=== PATIENT | male | born 1940 | race Caucasian/White ===

== ENCOUNTER 2024-09-09 11:22 | Inpatient (IN) | payer MEDICARE, SELFPAY ==
[2024-09-09] VITALS (13 sets, daily range): BP systolic 117–157; BP diastolic 57–85; PULSE 54–73; RESP 14–21; TEMP 36.4–37; O2SAT 96–99; BMI 33.4
--- NOTE | ~2024-09-09 | CT_ITS ---
EXAMINATION: CTA chest PE protocol DATE: 09/09/2024 12:33 INDICATION: Chest pain. Elevated troponins. Right bundle branch block. TECHNIQUE: Computed tomography (CT) pulmonary angiogram of the chest was performed with 100 mL Omnipa que-350 intravenous contrast. Additional 3D reconstructions utilizing coronal maximum intensity proje ction (MIP) were performed. Automated exposure control and iterative reconstruction technique were em ployed. The dose-length product was 693.64 mGy-cm. COMPARISON: None FINDINGS: No pulmonary embolism. Mild discoid atelectasis at the basilar aspect the lingula and left lower lobe . Additional dependent predominant atelectasis with groundglass opacities in the bilateral lower lobe s. No pneumonia, pulmonary edema, pleural effusion or pneumothorax. Heart size is normal. Atheroscler otic coronary artery calcifications. No pericardial effusion. Normal caliber thoracic aorta with no d issection. No pathologically enlarged thoracic lymphadenopathy. There are are a few small hepatic cys ts the largest in the right hepatic lobe measuring up to 2.5 cm. Visualized upper abdomen is otherwis e unremarkable. Mild upper thoracic levocurvature with mild spondylosis and bridging osteophytes at m ultiple levels consistent with diffuse idiopathic skeletal hyperostosis (DISH). IMPRESSION: 1. Mild atelectasis at the lingula and the dependent lower lobes. No pulmonary embolism or other acut e cardiopulmonary disease. Reviewed, dictated and finalized at location A. IMPRESSION: 1. Mild atelectasis at the lingula and the dependent lower lobes. No pulmonary embolism or other acute cardiopulmonary disease.
--- NOTE | ~2024-09-09 | XR_ITS ---
EXAMINATION: XR chest 2V DATE: 09/09/2024 12:19 INDICATION: Chest pain TECHNIQUE: PA and lateral views of the chest were obtained. COMPARISON: Chest CT dated 09/09/2024 FINDINGS: Mild linear discoid atelectasis/scarring at the left lung base. Calcified left upper lobe nodule jarad g with calcified left hilar lymph nodes consistent with old granulomatous disease. No pulmonary edema , pleural effusion or pneumothorax. The cardiomediastinal silhouette is normal. Mild thoracic spondyl osis. IMPRESSION: 1. Mild left basilar atelectasis/scarring. Reviewed, dictated and finalized at location A.
--- NOTE | 2024-09-09 11:25 | ECG_ITS ---
Test Date: 2024-09-09 11:32:01 Measurements Intervals [place] Rate: 72 P: 51 NH: 154 QRS: -31 QRSD: 141 T: -13 QT: 394 QTc: 432 Interpretive Statements SINUS RHYTHM LEFT AXIS DEVIATION RIGHT BUNDLE BRANCH BLOCK VOLTAGE CRITERIA FOR LVH MINIMAL Q WAVES- HIGH LATERAL LEADS ABNORMAL ECG No previous ECG available for comparison Electronically Signed On 09-09-2024 12:49:12 CDT by Jd Lerner D.O.
[2024-09-09 11:52] LABS: Basophils Absolute Auto 0.1 K/mm3 (0.0-0.1); Basophils Percent Auto 0.9 % (0.2-1.2); Eosinophils Absolute Auto 0.1 K/mm3 (0-0.3); Eosinophils Percent Auto 1.1 % (0-4.4); Hematocrit 49.3 % (42.0-52.0); Hemoglobin 16.1 g/dL (14.0-18.0); Immature Granulocyte Absolute 0.01 K/mm3 (0.00-0.031); Immature Granulocyte Percent A 0.2 % (0-0.5); Lymphocytes Percent Auto 28.3 % (18.3-44.2); Mean Corpuscular HGB Conc 32.7 g/dl (32-36); Mean Corpuscular Hemoglobin 30.9 pg (26-34); Mean Corpuscular Volume 94.6 fl (80-100); Mean Platelet Volume 8.6 fl (7.4-10.4); Monocytes Absolute Auto 0.3 K/mm3 (0.1-0.6); Monocytes Percent Auto 5.5 % (2.6-8.5); Neutrophils Absolute Auto 3.6 K/mm3 (1.3-6.7); Platelet Count Result 220 k/mm3 (150-375); Red Blood Count 5.21 M/mm3 (4.6-6.20); Red Cell Distribution Width 13.2 % (11.5-14.5); White Blood Count 5.7 K/mm3 (4.5-10.0)
[2024-09-09] MEDS: ASPIRIN 81 MG CHEWABLE TABLET 324 MG PO (11:59)
[2024-09-09 12:03] LABS: Alanine Aminotransferase 30 U/L (6-50); Albumin Level 4.1 g/dL (3.5-5.1); Alkaline Phosphatase 64 U/L (38-126); Anion Gap 7 mmol/L (4-12); Aspartate Amino Transferase 29 U/L (17-59); Bilirubin,Total 0.8 mg/dL (0.2-1.3); Blood Urea Nitrogen 18 mg/dL (9-20); Calcium 8.8 mg/dL (8.4-10.2); Carbon Dioxide 27 mmol/L (22-30); Chloride 105 mmol/L (98-107); Estimated CRCL calculation 70 ml/min; Estimated Glomerular Filt Rate > 60; Glucose 183 mg/dL (65-110); Lipase 34 U/L (23-300); Potassium 3.9 mmol/L (3.4-5.0); Sodium 139 mmol/L (137-145)
[2024-09-09 12:04] LABS: Partial Thromboplastin Time 36.6 Seconds (22.3-36.8)
[2024-09-09 12:16] LABS: Troponin I 0.123 ng/mL (0.000-0.034)
--- NOTE | 2024-09-09 12:17 | ED.CHESTPAIN ---
HPI - Chest Pain General Chief Complaint: Chest Pain Stated Complaint: CP Time Seen by Provider: 09/09/24 11:26 History of Present Illness HPI narrative: 84-year-old male with no known comorbidities as he does not see a regular doctor and does not take any prescription medications. Patient presents to the emergency room with 2 days of ongoing midsternal chest pain. Started at rest and occasionally feels like there is tightness in his chest. States that it comes and goes and states that this feeling could potentially be gas in his upper chest. He denies any trauma or injury. He is very obese and has hypertension on triage vitals. Patient denies any symptoms of shortness of breath, diaphoresis, nausea, vomiting, leg swelling or back pain. Was otherwise in his normal state of health. States that the pain went away on the car ride over the hospital and presently asymptomatic. Related Data Allergies Allergy/AdvReac Type Severity Reaction Status Date / Time No Known Allergies Allergy Verified 09/09/24 11:58 Review of Systems Review of Systems: As reviewed above in HPI Exam Narrative: GENERAL: Morbidly obese, not any physical distress, awake and answers questions HEAD: [Normocephalic, atraumatic.] EYES: [PERRLA and EOMI.] ENT: Nares clear, no rhinorrhea or epistaxis. Mucous membranes moist. NECK: Supple. CHEST: [Clear to auscultation. No respiratory distress.] HEART: [Regular rate and rhythm]. No murmur heard. [Normal peripheral pulses.] ABDOMEN: [Soft, nondistended], protuberant abdomen but not tender to palpation, [No rigidity or guarding] EXTREMITIES: Normal range of motion. [No edema.] SKIN: Warm, dry, no rash. NEURO: [No focal deficits]. Alert and oriented [x3.] PSYCH: [Normal mood and affect.] Course Vital Signs Vital signs: Vital Signs Temperature 36.6 C 09/09/24 11:28 Pulse Rate 73 09/09/24 11:28 Respiratory Rate 17 09/09/24 11:28 Blood Pressure 155/83 H 09/09/24 11:28 Pulse Oximetry 96 09/09/24 11:28 Oxygen Delivery Room Air 09/09/24 11:28 Temperature 36.6 C 09/09/24 11:28 Pulse Rate 62 09/09/24 14:27 Respiratory Rate 14 09/09/24 14:27 Blood Pressure 128/83 09/09/24 14:27 Pulse Oximetry 98 09/09/24 14:27 Oxygen Delivery Room Air 09/09/24 11:34 MDM - Chest Pain MDM Narrative Medical decision making narrative: 84-year-old male with no known comorbidities presenting to the emergency room with chief complaint of midsternal chest pain the feels like a tightness intermittent in nature and ongoing for 2 days. Does not seek medical attention and does not see doctors. He had an episode like this 5 years ago that he brushed off. He is morbidly obese and generally unhealthy appearing and has hypertension with a blood pressure 155/83. No tachycardia, fever, hypoxia. He has strong symmetric pulses, clear breath sounds on auscultation and no signs of a DVT on examination at bedside. Suspicion presently given his comorbidities including obesity and hypertension is that he has angina and potential ACS versus musculoskeletal chest pain versus potential pulmonary embolism. Blood work obtained including a CBC, CMP, lipase, troponin serial levels, EKG and chest x-ray. He was given aspirin. EKG obtained shows a right bundle branch block with no previous baseline for comparison. Does not appear to have any marked ST segment elevations or depressions. Patient's laboratory studies came back with an elevated troponin at 0.123, no baseline and given his historical features including chest discomfort we will initiate heparin for NSTEMI. Given the right bundle branch block that could be new in addition to his elevated troponin a CT angiography of his chest was obtained for further delineation of any potential source such as aortic or pulmonary pathology although most likely cardiac in nature. Patient will be admitted to the hospital and placed on IMU telemetry bed after workup. Patient's workup shows no leukocytosis or anemia. Normal platelet count. Normal coag studies. Normal electrolytes, normal renal function, slightly elevated glucose 183. Normal LFTs. Troponin elevated 0.123. EKG shows right bundle branch block. CT angiography shows no cardiopulmonary process or pulmonary embolism. Patient was already initiated on heparin after initial troponin. Bolus dose provided. Consult Cardiology placed, discussed with the patient and family bedside elevated cardiac enzymes and suspect for NSTEMI given his EKG findings. Discussed the case with the hospitalist team currently being covered by the midlevel provider Stephanie who accepted the patient to an IMU bed at this time. Patient remains asymptomatic at this time with no chest pain shortness a breath and normal vital signs. Repeat EKG at 3:00 p.m. shows persistent right bundle branch block, lateral T-wave inversions, no ST segment elevations. Medical Records Data Attestation: I reviewed the patient's medical records. Lab Data Attestation: I reviewed the patient's lab results. 09/09/24 11:47 09/09/24 11:47 Labs: Lab Results 09/09/24 09/09/24 Range/Units 11:47 14:26 WBC 5.7 (4.5-10.0) K/mm3 RBC 5.21 (4.6-6.20) M/mm3 Hgb 16.1 (14.0-18.0) g/dL Hct 49.3 (42.0-52.0) % MCV 94.6 (80-100) fl MCH 30.9 (26-34) pg MCHC 32.7 (32-36) g/dl RDW 13.2 (11.5-14.5) % Plt Count 220 (150-375) k/mm3 MPV 8.6 (7.4-10.4) fl Immature Gran % (Auto) 0.2 (0-0.5) % Neut % (Auto) 64.0 (45.5-73.1) % Lymph % (Auto) 28.3 (18.3-44.2) % [place] % (Auto) 5.5 (2.6-8.5) % Eos % (Auto) 1.1 (0-4.4) % Baso % (Auto) 0.9 (0.2-1.2) % Lymph # (Auto) 1.60 (0.9-3.2) K/mm3 [place] # (Auto) 0.3 (0.1-0.6) K/mm3 Eos # (Auto) 0.1 (0-0.3) K/mm3 Baso # (Auto) 0.1 (0.0-0.1) K/mm3 Abs Immat Gran (auto) 0.01 (0.00-0.031) K/mm3 Absolute Neuts (auto) 3.6 (1.3-6.7) K/mm3 Absolute Nucleated RBC 0.000 (0.0-0.012) K/mm3 Nucleated RBC % 0.0 (0.0-0.2) % PT 14.0 (11.1-14.7) Seconds INR 1.0 APTT 36.6 (22.3-36.8) Seconds D-Dimer Cancelled Sodium 139 (137-145) mmol/L Potassium 3.9 (3.4-5.0) mmol/L Chloride 105 (98-107) mmol/L Carbon Dioxide 27 (22-30) mmol/L Anion Gap 7 (4-12) mmol/L BUN 18 (9-20) mg/dL Creatinine 0.82 (0.7-1.3) mg/dL Estim Creat Clear Calc 70 ml/min Estimated GFR > 60 (59 - ) Glucose 183 H (65-110) mg/dL Calcium 8.8 (8.4-10.2) mg/dL Total Bilirubin 0.8 (0.2-1.3) mg/dL AST 29 (17-59) U/L ALT 30 (6-50) U/L Alkaline Phosphatase 64 (38-126) U/L Troponin I 0.123 H* Pending (0.000-0.034) ng/mL Total Protein 7.0 (6.3-8.2) g/dL Albumin 4.1 (3.5-5.1) g/dL Lipase 34 (23-300) U/L Imaging Data Attestation: I personally reviewed and interpreted this imaging study as follows: My impression: Impressions Chest X-Ray 09/09/24 12:35 IMPRESSION: 1. Mild left basilar atelectasis/scarring. Chest CTA 09/09/24 12:38 IMPRESSION: 1. Mild atelectasis at the lingula and the dependent lower lobes. No pulmonary embolism or other acute cardiopulmonary disease. ECG Data EKG #1: Attestation: I personally reviewed and interpreted this ECG as follows: ECG completion date: 09/09/24 ECG completion time: 11:32 Prior ECG tracings: available for review Interpretation: Sinus rhythm, QTC 432, QRS 141, rate of 72 beats per minute. UT interval 154. Right bundle branch block, no ST segment elevations, depressions. No previous EKG for comparison. Overall sinus rhythm with right bundle branch block. Critical Care Time Critical Care Time Critical Care Time: Yes Total Critical Care Time: 36 Discharge Plan Discharge Clinical Impression: Chest pain, Non-STEMI (non-ST elevated myocardial infarction) Patient Disposition: Still a Patient Condition: Stable Patient Language: Palestinian Prescriptions: No Action Paxlovid 300 mg (150 mg x 2)-100 mg tablet See Rx Instructions PO .COMPLEX Qty: 30 0RF Rx Instructions: take TWO 150 mg tablets of nirmatrelvir with ONE 100 mg tablet of ritonavir twice daily for 5 days PO Follow-up/Referrals: PHYSICIAN,CROP SPECIALIST [Primary Care Provider] - Time of Disposition: 14:56
[2024-09-09] MEDS: HEPARIN SODIUM 5,000 UNITS/ML VIAL 4000 UNITS IV PUSH (12:44)
[2024-09-09] MEDS: HEPARIN SOD/D5W 100 UNITS/ML 25,000 UNITS/250 ML BAG 10 UNITS IV CONT (12:45)
[2024-09-09] MEDS: PHARMACIST COMMUNICATION ORDER 1 EACH XX (12:49)
--- NOTE | 2024-09-09 14:15 | ECG_ITS ---
Test Date: 2024-09-09 14:34:19 Measurements Intervals [place] Rate: 51 P: 52 FL: 150 QRS: -26 QRSD: 136 T: -24 QT: 403 QTc: 374 Interpretive Statements SINUS BRADYCARDIA RIGHT BUNDLE BRANCH BLOCK VOLTAGE CRITERIA FOR LVH T WAVE ABNORMALITY IN ANT/INF LEADS- CONSIDER ISCHEMIA ABNORMAL ECG Compared to ECG 09/09/2024 11:32:01 HEART RATE HAS DECREASED T-wave abnormality now present Possible ischemia now present Electronically Signed On 09-09-2024 18:38:59 CDT by Jd Lerner D.O.
--- NOTE | 2024-09-09 15:00 | P.HP_ITS ---
H&P: HPI History of Present Illness Date/Time: 09/09/24 15:00 Chief Complaint: Chest Pain Narrative: 84 y/o M with no known past medical history presents here with chest pain. The patient presents here from home on 09/09 for further evaluation of midsternal chest pain. He reports onset of chest pain early this morning around 4 a.m. He reports he was up early and showered. Went back to sleep post-shower and pain was still present when he woke up at 7:30 a.m. Pain resolved without medications or interventions. Patient then developed a second episode of prolonged chest pain, reports it was less severe than the first and occurred shortly after he used the restroom and at rest. He describes it as a tightness, sharp, nonradiating, constant, first episode lasted for a few hours and the second episode 1-2 hours, no aggravated or alleviating factors. It was accompanied by indigestion, felt damp and hot but not necessarily diaphoretic. He denies shortness of breath, nausea, vomiting, palpitations, dizziness, lightheadedness or syncope. He denies any significant cardiac history and does not take any daily medications. Family history of heart disease - mother. Initial VS at presentation: 97.8? F, HR 73, R 17, 155/83, and 96% on RA. ED workup showed: Unremarkable CBC, no significant electrolyte derangements, glucose 183, initial troponin 0.415. CXR showed mild left basilar atelectasis/s carring. Chest CTA showed mild atelectasis at the lingula and the dependent lower lobes, no PE, no other acute cardiopulmonary disease. Initial EKG showed sinus rhythm, left axis deviation, RBBB, voltage criteria for LVH, minimal Q- waves high lateral leads. Review of Systems Review of Systems: All systems reviewed & are unremarkable except as noted in HPI and below [facility] Social History Social History Smoking status: Never smoker Alcohol intake: never Do You Feel Safe in your Home?: Yes Lack of Transportation: No Lack of Food: Never True Current Housing: I Have Housing Concerned About Future Housing: No Difficulty Paying Gas/Electric Bills: No Difficulty Paying for Meds: No Currently Unemployed: No Education: Master's Degree or Higher Difficulty w/ Childcare or Family Care: No Spiritual care concerns: No Meds Home Medications and Allergies Home Medications ?Medication ?Instructions ?Recorded ?Confirmed ?Type No Home Medications 09/09/24 09/09/24 History Allergies Allergy/AdvReac Type Severity Reaction Status Date / Time No Known Allergies Allergy Verified 09/09/24 11:58 Vital Signs Vital Signs - 24 hr 09/09/24 11:28 09/09/24 11:33 09/09/24 11:34 Temperature 97.8 F Pulse Rate 73 72 Respiratory Rate 17 Blood Pressure 155/83 H Pulse Oximetry 96 97 Oxygen Delivery Room Air Room Air 09/09/24 12:49 09/09/24 13:54 09/09/24 14:27 Temperature Pulse Rate 64 54 L 62 Respiratory Rate 21 H 19 14 Blood Pressure 142/79 H 128/83 128/83 Pulse Oximetry 97 96 98 Oxygen Delivery 09/09/24 14:55 Temperature Pulse Rate 61 Respiratory Rate 15 Blood Pressure Pulse Oximetry 99 Oxygen Delivery Exam Const: General: comfortable and no acute distress Other: , male, elderly, nontoxic appearance HENMT: Face/Nose/Sinus: Normal nares present Mouth: Yes moist mucous membranes Eyes: General: appearance normal, both eyes and all related structures Sclera: sclerae normal Pupils: Equal, round and reactive pupils present EOM: EOMs intact bilaterally Resp: Effort & Inspection: normal respiratory effort Auscultation: clear to auscultation bilaterally Cardio: Rate: regular rate Rhythm: regular rhythm Other: S1-S2 present without murmur, rub, ectopy GI: Other: Abdomen rounded, soft, nondistended. Normoactive bowel sounds in all quadrants. Skin: General skin exam: normal color and no rashes or lesions noted Wounds: no wounds Neuro: Speech: normal speech Motor exam (neuro): 5/5 motor strength present throughout Sensory Exam: normal sensation Other: A&O x4 Extrem: Other: Trace edema to bilateral lower extremities, primarily at the ankles, and symmetric. Psych: Mental Status: mental status grossly normal Affect: normal affect Other: Very good insight and judgment, very pleasant. H&P: Results Labs Labs: Short CBC 09/09/24 Range/Units 11:47 WBC 5.7 (4.5-10.0) K/mm3 Hgb 16.1 (14.0-18.0) g/dL Hct 49.3 (42.0-52.0) % Plt Count 220 (150-375) k/mm3 BMP 09/09/24 11:47 Sodium 139 Potassium 3.9 Chloride 105 Carbon Dioxide 27 BUN 18 Creatinine 0.82 Glucose 183 H Calcium 8.8 Cardiac Enzymes 09/09/24 Range/Units 11:47 Troponin I 0.123 H* (0.000-0.034) ng/mL Liver Function 09/09/24 Range/Units 11:47 Total Bilirubin 0.8 (0.2-1.3) mg/dL AST 29 (17-59) U/L ALT 30 (6-50) U/L Alkaline Phosphatase 64 (38-126) U/L Albumin 4.1 (3.5-5.1) g/dL Assessment and Plan Assessment and plan (1) Non-STEMI (non-ST elevated myocardial infarction): Code(s): I21.4 - Non-ST elevation (NSTEMI) myocardial infarction Status: Acute Assessment and Plan: - EKG, initial: sinus rhythm, left axis deviation, RBBB, voltage criteria for LVH, minimal Q-waves high lateral leads. - EKG, repeat (1): When compared to previous, new T-wave abnormality present, new lateral inversions, possible ischemia now present, sinus rhythm no longer present (Sinus bradycardia) - CXR:Mild left basilar atelectasis/scarring. - Chest CTA: Mild atelectasis at the lingula and the dependent lower lobes. No pulmonary embolism or other acute cardiopulmonary disease. - Troponin: 0.123 -> 0.415, 6 hr pending - ASA 324 given - SL nitro PRN - cardiology consulted, awaiting recs ED provider spoke with on-call wide area network engineer, Rachel BRYANT, and updated the provider in regards to the up trending troponin and new lateral inversions on his EKG. Plan for cardiac catheterization in the a.m. and NPO at midnight. - started on heparin gtt - check lipid panel, A1C, and ApneaLink - NPO at midnight for cardiac catheterization on 09/10 -> patient aware of plan, questions answered - telemetry monitoring (2) Elevated glucose: Code(s): R73.09 - Other abnormal glucose Status: Acute Assessment and Plan: Initial glucose 183, no previous history of diabetes. Check A1c. Plan Diet: Heart healthy, NPO at midnight GI Prophylaxis: Not currently indicated DVT Prophylaxis: Heparin gtt IV fluids: None Lines/Tubes: Peripheral IV Code Status: Full code Quality VTE Prophylaxis VTE prophylaxis: pharmacologic ordered Hospitalist MIPS Advance Care Plan I have confirmed that the patient's Advanced Care Plan is present, code status is documented, or surrogate decision maker is listed in patient medical record.: Yes Medication Reconciliation I have utilized all available resources to obtain, update and review the patients current medications (includes all prescriptions, OTC, herbals, cannabis, and nutritional supplements).: Yes
[2024-09-09 15:01] LABS: Troponin I 0.415 ng/mL (0.000-0.034)
--- NOTE | 2024-09-09 15:03 | ADMGEN ---
This patient, Oscar Michele, was admitted to IMU Room 207-01. Patient/family oriented to hospital policies and general routines including ID bracelet, bed and alarms, visiting hours, pain management, procedures, bathroom and other care routines, personal items, smoking policy, room service/diet, and visiting hours. Information on how to activate the Rapid Response Team has been discussed. Patient/Family are encouraged to report perceived risks to care and to ask questions if they do not understand what they are told or what they should do.
[2024-09-09 18:21] LABS: Troponin I 0.905 ng/mL (0.000-0.034)
[2024-09-09 19:21] LABS: Partial Thromboplastin Time 83.9 Seconds (22.3-36.8)
--- NOTE | 2024-09-09 20:33 | ECG_ITS ---
Test Date: 2024-09-09 18:02:37 Measurements Intervals [place] Rate: 67 P: 54 SD: 153 QRS: -28 QRSD: 141 T: -11 QT: 379 QTc: 402 Interpretive Statements SINUS RHYTHM RIGHT BUNDLE BRANCH BLOCK VOLTAGE CRITERIA FOR LVH MINIMAL Q WAVES- HIGH LATERAL LEADS T WAVE ABNORMALITY IN ANT/INF LEADS- CONSIDER ISCHEMIA BASELINE ARTIFACT- II, III, AVF ABNORMAL ECG Compared to ECG 09/09/2024 14:34:19 HEART RATE HAS INCREASED Electronically Signed On 09-10-2024 07:54:46 CDT by Jd Lerner D.O.
[2024-09-10] VITALS (15 sets, daily range): BP systolic 117–139; BP diastolic 64–73; PULSE 58–73; RESP 16–18; TEMP 36.6–36.9; O2SAT 91–98; BMI 33.6
--- NOTE | 2024-09-10 | PCRTNOTE ---
2230: Patient seen for placement on Apnea Link, not ready, stating he won't be asleep until at least 0000; plan with RN/Tech/RT for placement at 0000 [id number]: Placed on Apnea Link, room air; 0130 blood draw required
[2024-09-10 02:24] LABS: Basophils Absolute Auto 0.1 K/mm3 (0.0-0.1); Basophils Percent Auto 0.6 % (0.2-1.2); Eosinophils Absolute Auto 0.2 K/mm3 (0-0.3); Eosinophils Percent Auto 2.2 % (0-4.4); Hematocrit 46.2 % (42.0-52.0); Hemoglobin 15.2 g/dL (14.0-18.0); Immature Granulocyte Absolute 0.02 K/mm3 (0.00-0.031); Immature Granulocyte Percent A 0.3 % (0-0.5); Lymphocytes Absolute Auto 2.64 K/mm3 (0.9-3.2); Lymphocytes Percent Auto 33.6 % (18.3-44.2); Mean Corpuscular HGB Conc 32.9 g/dl (32-36); Mean Corpuscular Volume 94.3 fl (80-100); Mean Platelet Volume 8.6 fl (7.4-10.4); Monocytes Absolute Auto 0.8 K/mm3 (0.1-0.6); Monocytes Percent Auto 9.9 % (2.6-8.5); Neutrophils Absolute Auto 4.2 K/mm3 (1.3-6.7); Neutrophils Percent Auto 53.4 % (45.5-73.1); Platelet Count Result 211 k/mm3 (150-375); Red Cell Distribution Width 13.2 % (11.5-14.5); White Blood Count 7.9 K/mm3 (4.5-10.0)
[2024-09-10 02:35] LABS: Alanine Aminotransferase 25 U/L (6-50); Albumin Level 3.4 g/dL (3.5-5.1); Alkaline Phosphatase 59 U/L (38-126); Anion Gap 5 mmol/L (4-12); Aspartate Amino Transferase 30 U/L (17-59); Bilirubin,Total 0.8 mg/dL (0.2-1.3); Blood Urea Nitrogen 17 mg/dL (9-20); Calcium 8.8 mg/dL (8.4-10.2); Carbon Dioxide 28 mmol/L (22-30); Chloride 104 mmol/L (98-107); Cholesterol 205 mg/dL (0-200); Estimated CRCL calculation 76 ml/min; Estimated Glomerular Filt Rate > 60; Glucose 131 mg/dL (65-110); HDL Direct 43 mg/dL; Potassium 3.8 mmol/L (3.4-5.0); Sodium 137 mmol/L (137-145); Triglycerides 97 mg/dL (<150)
[2024-09-10 02:37] LABS: Partial Thromboplastin Time 82.6 Seconds (22.3-36.8)
[2024-09-10 02:46] LABS: LDL Cholesterol Direct 117 mg/dL
[2024-09-10 03:44] LABS: Hemoglobin A1C 6.8 % (<5.7)
--- NOTE | 2024-09-10 09:01 | PM.IMPN ---
Progress Note: A&P Assessment and Plan (1) Chest pain: Code(s): R07.9 - Chest pain, unspecified Status: Acute (2) Non-STEMI (non-ST elevated myocardial infarction): Code(s): I21.4 - Non-ST elevation (NSTEMI) myocardial infarction Status: Acute (3) Elevated glucose: Code(s): R73.09 - Other abnormal glucose Status: Acute Plan 84 y/o M with no known past medical history presents here with intermittent chest pain. Non-STEMI (non-ST elevated myocardial infarction): Code(s): I21.4 - Non-ST elevation (NSTEMI) myocardial infarction Status: Acute Assessment and Plan: EKG, initial: sinus rhythm, left axis deviation, RBBB, voltage criteria for LVH, minimal Q-waves high lateral leads. Repeat EKG showed new T-wave abnormality present, new lateral inversions, possible ischemia now present - CXR:Mild left basilar atelectasis/scarring. - Chest CTA: Mild atelectasis at the lingula and the dependent lower lobes. No pulmonary embolism or other acute cardiopulmonary disease. - Troponin: 0.123 -> 0.415, 6 hr pending - ASA 324 given - SL nitro PRN Continue heparin gtt Continue telemetry monitoring Appreciate cardiology consultation, please cardiac catheterization today The new diagnosed diabetes Code(s): R73.09 - Other abnormal glucose Status: Acute Assessment and Plan: Initial glucose 183, no previous history of diabetes. Check A1c 6.8. 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 q.h.s., Lantus 16 q.h.s. Will change to oral antihyperglycemic medication on discharge Subjective Date/time seen: 09/10/24 09:01 Interval history: I saw exam patient today, patient denies chest pain, shortness breast at rest, palpitation, abdomen pain nausea vomiting. Patient afebrile blood pressure stable Objective Data Vital Signs Vital Signs: Vital Signs - 24 hr 09/09/24 11:28 09/09/24 11:33 09/09/24 11:34 Temperature 97.8 F Pulse Rate 73 72 Respiratory Rate 17 Blood Pressure 155/83 H Pulse Oximetry 96 97 Oxygen Delivery Room Air Room Air 09/09/24 12:49 09/09/24 13:54 09/09/24 14:27 Temperature Pulse Rate 64 54 L 62 Respiratory Rate 21 H 19 14 Blood Pressure 142/79 H 128/83 128/83 Pulse Oximetry 97 96 98 Oxygen Delivery 09/09/24 14:55 09/09/24 16:00 09/09/24 16:00 Temperature 98.6 F Pulse Rate 61 73 67 Respiratory Rate 15 20 Blood Pressure 157/85 H Pulse Oximetry 99 98 Oxygen Delivery 09/09/24 17:51 09/09/24 19:53 09/09/24 20:00 Temperature 97.7 F Pulse Rate 67 61 58 L Respiratory Rate 17 Blood Pressure 136/67 Pulse Oximetry 97 Oxygen Delivery 09/09/24 20:30 09/09/24 22:00 09/09/24 23:45 Temperature 97.6 F Pulse Rate 59 L 58 L Respiratory Rate 17 Blood Pressure 117/57 L Pulse Oximetry 96 Oxygen Delivery Room Air 09/10/24 00:00 09/10/24 00:00 09/10/24 02:00 Temperature Pulse Rate 67 58 L Respiratory Rate Blood Pressure Pulse Oximetry Oxygen Delivery Room Air 09/10/24 04:00 09/10/24 04:00 09/10/24 04:10 Temperature 97.9 F Pulse Rate 63 66 Respiratory Rate 18 Blood Pressure 117/67 Pulse Oximetry 95 Oxygen Delivery Room Air 09/10/24 06:00 Temperature Pulse Rate 65 Respiratory Rate Blood Pressure Pulse Oximetry Oxygen Delivery Intake/Output Intake/Output: Intake & Output 09/07/24 09/08/24 09/09/24 09/10/24 23:59 23:59 23:59 23:59 Intake Total 1408.8 75.3 Output Total 500 Balance 1408.8 -424.7 Meds/Results Medications: Active Medications Generic Name Dose Route Start Last Admin Trade Name Freq PRN Reason Stop Dose Admin Acetaminophen 650 mg 09/09/24 14:12 Acetaminophen 325 Mg Tablet PO Q4H PRN Mild Pain (1-3) or Fever Heparin Sodium (Porcine) 4,000 units 09/09/24 12:20 Heparin Sodium 5,000 Units/Ml Vial IV PUSH PRN PRN aPTT less than 55 seconds Heparin Sodium (Porcine) 3,000 units 09/09/24 12:20 Heparin Sodium 5,000 Units/Ml Vial IV PUSH PRN PRN aPTT 55 - 70 seconds Heparin Sodium/Dextrose 25,000 units in 250 mls @ 10 mls/hr 09/09/24 12:20 09/10/24 03:10 Heparin Sodium/D5w 100 Units/Ml IV CONT 1,000 units/hr .Q24H NACHO 10 mls/hr Titration Protocol 1,000 UNITS/HR Nitroglycerin 0.4 mg 09/09/24 15:02 Nitroglycerin Sl 0.4 Mg Tablet SUBLINGUAL Q5MIN PRN Chest Pain Ondansetron HCl 4 mg 09/09/24 14:12 Ondansetron Inj 4 Mg/2 Ml Vial IV PUSH Q4H PRN Nausea Radiology Results: ITS Impressions Chest X-Ray 09/09/24 12:35 IMPRESSION: 1. Mild left basilar atelectasis/scarring. Chest CTA 09/09/24 12:38 IMPRESSION: 1. Mild atelectasis at the lingula and the dependent lower lobes. No pulmonary embolism or other acute cardiopulmonary disease. Labs Labs: Laboratory Results - last 24 hr 09/09/24 09/09/24 09/09/24 11:47 14:26 17:44 WBC 5.7 RBC 5.21 Hgb 16.1 Hct 49.3 MCV 94.6 MCH 30.9 MCHC 32.7 RDW 13.2 Plt Count 220 MPV 8.6 Immature Gran % (Auto) 0.2 Neut % (Auto) 64.0 Lymph % (Auto) 28.3 [place] % (Auto) 5.5 Eos % (Auto) 1.1 Baso % (Auto) 0.9 Lymph # (Auto) 1.60 [place] # (Auto) 0.3 Eos # (Auto) 0.1 Baso # (Auto) 0.1 Abs Immat Gran (auto) 0.01 Absolute Neuts (auto) 3.6 Absolute Nucleated RBC 0.000 Nucleated RBC % 0.0 PT 14.0 INR 1.0 APTT 36.6 D-Dimer Cancelled Sodium 139 Potassium 3.9 Chloride 105 Carbon Dioxide 27 Anion Gap 7 BUN 18 Creatinine 0.82 Estim Creat Clear Calc 70 Estimated GFR > 60 Glucose 183 H Hemoglobin A1c Calcium 8.8 Total Bilirubin 0.8 AST 29 ALT 30 Alkaline Phosphatase 64 Troponin I 0.123 H* 0.415 H* D 0.905 H* D Total Protein 7.0 Albumin 4.1 Triglycerides Cholesterol LDL Cholesterol Direct HDL Direct Lipase 34 09/09/24 09/10/24 09/10/24 19:03 02:14 02:15 WBC 7.9 RBC 4.90 Hgb 15.2 Hct 46.2 MCV 94.3 MCH 31.0 MCHC 32.9 RDW 13.2 Plt Count 211 MPV 8.6 Immature Gran % (Auto) 0.3 Neut % (Auto) 53.4 Lymph % (Auto) 33.6 [place] % (Auto) 9.9 H Eos % (Auto) 2.2 Baso % (Auto) 0.6 Lymph # (Auto) 2.64 [place] # (Auto) 0.8 H Eos # (Auto) 0.2 Baso # (Auto) 0.1 Abs Immat Gran (auto) 0.02 Absolute Neuts (auto) 4.2 Absolute Nucleated RBC 0.000 Nucleated RBC % 0.0 PT INR APTT 83.9 H 82.6 H D-Dimer Sodium 137 Potassium 3.8 Chloride 104 Carbon Dioxide 28 Anion Gap 5 BUN 17 Creatinine 0.82 Estim Creat Clear Calc 76 Estimated GFR > 60 Glucose 131 H Hemoglobin A1c 6.8 H Calcium 8.8 Total Bilirubin 0.8 AST 30 ALT 25 Alkaline Phosphatase 59 Troponin I 1.240 H* Total Protein 6.0 L Albumin 3.4 L Triglycerides 97 Cholesterol 205 H LDL Cholesterol Direct 117 HDL Direct 43 Lipase
--- NOTE | 2024-09-10 09:07 | PM.CNCAR ---
Assessment and Plan Assessment and plan (1) Non-STEMI (non-ST elevated myocardial infarction): Code(s): I21.4 - Non-ST elevation (NSTEMI) myocardial infarction Status: Acute Assessment and Plan: 1. NSTEMI ---[id number] 3 ---hemodynamically stable ---no more chest pain -continue ACS protocol; aspirin, statin, heparin, beta-deepa -trend troponin to peak -echo to assess LV size, function wall motion -discussed coronary angiography and left heart catheterization with him. Discussed the risks, benefits and alternatives of left heart catheterization. The risks include but are not limited to bleeding from access site, infection, arrhythmia, NSTEMI, acute kidney injury requiring temporary or permanent hemodialysis, emergency surgery, stroke, NSTEMI or even . We discussed that in the event a PCI is performed then DAPT will be needed. We discussed stent thrombosis or even in case of non-adherence. We also discussed bleeding with DAPT. He understood the procedure and agreed to proceed with a left heart catheterization -left heart catheterization tomorrow or earlier if any change in symptoms -further recommendations post left heart catheterization/coronary angiography History of Present Illness History of Present Illness Consult date/time: 09/10/24 09:07 Reason For Visit: NSTEMI Narrative: 84 y/o M with no known past medical history admitted with NSTEMI. He presented with an episode of midsternal chest pain which happened Tuesday. He describes it as a tightness, sharp, nonradiating, constant lasted for few hours and then it recurred again which brought him to the hospital 2nd time he felt some symptoms worse or heartburn as well. EKG shows right bundle-branch block with no dynamic ST or T-wave changes Troponin uptrending loss troponin 1.2. Has not peaked yet Currently at the time of my evaluation he is chest pain-free, comfortable No dyspnea Had a CTA done in the ED did not show any pulmonary embolism. Denies any prior history of CAD, mi or CVA No significant family history of CAD Nonsmoker Lives with his Independent in his activities of daily living No bleeding from any source [facility] Social History Social History Smoking status: Never smoker Alcohol intake: never Do You Feel Safe in your Home?: Yes Lack of Transportation: No Lack of Food: Never True Current Housing: I Have Housing Concerned About Future Housing: No Difficulty Paying Gas/Electric Bills: No Difficulty Paying for Meds: No Currently Unemployed: No Education: Master's Degree or Higher Difficulty w/ Childcare or Family Care: No Spiritual care concerns: No Meds Home Medications and Allergies Home Medications ?Medication ?Instructions ?Recorded ?Confirmed ?Type No Home Medications 09/09/24 09/09/24 History Allergies Allergy/AdvReac Type Severity Reaction Status Date / Time No Known Allergies Allergy Verified 09/09/24 11:58 Vital Signs Vital Signs - 24 hr 09/09/24 11:28 09/09/24 11:33 09/09/24 11:34 Temperature 36.6 C Pulse Rate 73 72 Respiratory Rate 17 Blood Pressure 155/83 H Pulse Oximetry 96 97 Oxygen Delivery Room Air Room Air 09/09/24 12:49 09/09/24 13:54 09/09/24 14:27 Temperature Pulse Rate 64 54 L 62 Respiratory Rate 21 H 19 14 Blood Pressure 142/79 H 128/83 128/83 Pulse Oximetry 97 96 98 Oxygen Delivery 09/09/24 14:55 09/09/24 16:00 09/09/24 16:00 Temperature 37.0 C Pulse Rate 61 73 67 Respiratory Rate 15 20 Blood Pressure 157/85 H Pulse Oximetry 99 98 Oxygen Delivery 09/09/24 17:51 09/09/24 19:53 09/09/24 20:00 Temperature 36.5 C Pulse Rate 67 61 58 L Respiratory Rate 17 Blood Pressure 136/67 Pulse Oximetry 97 Oxygen Delivery 09/09/24 20:30 09/09/24 22:00 09/09/24 23:45 Temperature 36.4 C Pulse Rate 59 L 58 L Respiratory Rate 17 Blood Pressure 117/57 L Pulse Oximetry 96 Oxygen Delivery Room Air 09/10/24 00:00 09/10/24 00:00 09/10/24 02:00 Temperature Pulse Rate 67 58 L Respiratory Rate Blood Pressure Pulse Oximetry Oxygen Delivery Room Air 09/10/24 04:00 09/10/24 04:00 09/10/24 04:10 Temperature 36.6 C Pulse Rate 63 66 Respiratory Rate 18 Blood Pressure 117/67 Pulse Oximetry 95 Oxygen Delivery Room Air 09/10/24 06:00 Temperature Pulse Rate 65 Respiratory Rate Blood Pressure Pulse Oximetry Oxygen Delivery Results Labs and Meds 09/10/24 02:15 09/10/24 02:14 Lab results: Cardiac Enzymes 09/09/24 09/09/24 09/09/24 Range/Units 11:47 14:26 17:44 AST 29 (17-59) U/L Troponin I 0.123 H* 0.415 H* D 0.905 H* D (0.000-0.034) ng/mL 09/10/24 Range/Units 02:14 AST 30 (17-59) U/L Troponin I 1.240 H* (0.000-0.034) ng/mL Coagulation 09/09/24 09/09/24 09/10/24 Range/Units 11:47 19:03 02:14 PT 14.0 (11.1-14.7) Seconds APTT 36.6 83.9 H 82.6 H (22.3-36.8) Seconds Lipids 09/10/24 Range/Units 02:14 Triglycerides 97 (<150) mg/dL Cholesterol 205 H (0-200) mg/dL CBC 09/09/24 09/10/24 Range/Units 11:47 02:15 WBC 5.7 7.9 (4.5-10.0) K/mm3 RBC 5.21 4.90 (4.6-6.20) M/mm3 Hgb 16.1 15.2 (14.0-18.0) g/dL Hct 49.3 46.2 (42.0-52.0) % Plt Count 220 211 (150-375) k/mm3 Lymph # (Auto) 1.60 2.64 (0.9-3.2) K/mm3 [place] # (Auto) 0.3 0.8 H (0.1-0.6) K/mm3 Eos # (Auto) 0.1 0.2 (0-0.3) K/mm3 Baso # (Auto) 0.1 0.1 (0.0-0.1) K/mm3 Comprehensive Metabolic Panel 09/09/24 09/10/24 Range/Units 11:47 02:14 Sodium 139 137 (137-145) mmol/L Potassium 3.9 3.8 (3.4-5.0) mmol/L Chloride 105 104 (98-107) mmol/L Carbon Dioxide 27 28 (22-30) mmol/L BUN 18 17 (9-20) mg/dL Creatinine 0.82 0.82 (0.7-1.3) mg/dL Glucose 183 H 131 H (65-110) mg/dL Calcium 8.8 8.8 (8.4-10.2) mg/dL AST 29 30 (17-59) U/L ALT 30 25 (6-50) U/L Alkaline Phosphatase 64 59 (38-126) U/L Total Protein 7.0 6.0 L (6.3-8.2) g/dL Albumin 4.1 3.4 L (3.5-5.1) g/dL Intake and Output 09/09/24 09/10/24 09/10/24 23:59 07:59 15:59 Intake Total 1408.8 75.3 Output Total 500 Balance 1408.8 -424.7 Intake: IV 68.8 75.3 Heparin Sod/D5w 100 Units/ml 25 68.8 75.3 ,000 units In 250 ml @ 1,000 UNITS/HR 10 mls/hr IV CONT . Q24H [facility] Rx#:[id number] Oral 1340 Output: Urine 500 Patient Weight 09/10/24 23:59 Weight 109.4 kg
[2024-09-10] MEDS: ASPIRIN 81 MG ENTERIC TABLET PO (09:55)
[2024-09-10] MEDS: METOPROLOL TARTRATE 12.5 MG TABLET PO ×2 (09:55→20:16)
[2024-09-10 10:23] LABS: Troponin I 0.912 ng/mL (0.000-0.034)
[2024-09-10 11:37] LABS: Glucose Point of Care 152 mg/dl (65-105)
[2024-09-10] MEDS: HEPARIN SOD/D5W 100 UNITS/ML 25,000 UNITS/250 ML BAG 10 UNITS IV CONT (13:42)
[2024-09-10 17:01] LABS: Glucose Point of Care 133 mg/dl (65-105)
[2024-09-10 20:48] LABS: Glucose Point of Care 125 mg/dl (65-105)
[2024-09-11] VITALS (29 sets, daily range): BP systolic 96–155; BP diastolic 49–76; PULSE 47–75; RESP 14–20; TEMP 36.5–36.9; O2SAT 93–98
[2024-09-11 05:29] LABS: Partial Thromboplastin Time 67.3 Seconds (22.3-36.8)
[2024-09-11] MEDS: HEPARIN SODIUM 5,000 UNITS/ML VIAL 3000 UNITS IV PUSH (06:20)
--- NOTE | 2024-09-11 08:32 | P.SEDATION_ITS ---
Moderate Sedation Note-Pt Data Patient Data Diagnosis: NSTEMI Procedure to be performed/Plan: Left heart catheterization Coronary angiography Allergies Allergy/AdvReac Type Severity Reaction Status Date / Time No Known Allergies Allergy Verified 09/09/24 11:58 Home Medications ?Medication ?Instructions ?Recorded ?Confirmed ?Type No Home Medications 09/09/24 09/09/24 History Current Medications: Active Medications Acetaminophen (Acetaminophen 325 Mg Tablet) 650 mg PO Q4H PRN PRN Reason: Mild Pain (1-3) or Fever Aspirin (Aspirin 81 Mg Enteric Tablet) 81 mg PO QAM NACHO Last Admin: 09/10/24 09:55 Dose: 81 mg Atorvastatin Calcium (Atorvastatin 40 Mg Tablet) 40 mg PO DAILY [facility] Last Admin: 09/10/24 09:55 Dose: Not Given Dextrose (Dextrose 50% 25 Gm/50 Ml Syringe) 12.5 gm IV PUSH PRN PRN; Protocol PRN Reason: Hypoglycemia Glucagon (Glucagon For Inj 1 Mg Vial) 1 mg IM PRN PRN; Protocol PRN Reason: Hypoglycemia Glucose (Glucose Oral Gel 15 Gm Of Glucse In 37.5 Gm Tube) 15 gm PO PRN PRN; Protocol PRN Reason: Hypoglycemia Heparin Sodium (Porcine) (Heparin Sodium 5,000 Units/Ml Vial) 4,000 units IV PUSH PRN PRN PRN Reason: aPTT less than 55 seconds Heparin Sodium (Porcine) (Heparin Sodium 5,000 Units/Ml Vial) 3,000 units IV PUSH PRN PRN PRN Reason: aPTT 55 - 70 seconds Last Admin: 09/11/24 06:20 Dose: 3,000 units Heparin Sodium/Dextrose (Heparin Sodium/D5w 100 Units/Ml) 25,000 units in 250 mls @ 12 mls/hr IV CONT .[id number] NACHO; Protocol Last Titration: 09/11/24 06:20 Dose: 1,200 units/hr, 12 mls/hr Dextrose (Dextrose 5% 1,000 Ml) 1,000 mls @ 100 mls/hr IVPB PRN PRN; Protocol PRN Reason: Hypoglycemia Insulin Aspart (Insulin Aspart (*Bkc) 100 Units/Ml) 3 - 6 units SUB-Q TIDWM NACHO; Protocol Last Admin: 09/11/24 07:51 Dose: Not Given Insulin Aspart (Insulin Aspart (*Bkc) 100 Units/Ml) 1 - 3 units SUB-Q HS NACHO; Protocol Last Admin: 09/10/24 20:54 Dose: Not Given Insulin Glargine (Insulin Glargine (*Bkc) 100 Units/Ml) 16 units 0.15 units/kg (16 units) SUB-Q [facility] Last Admin: 09/10/24 20:55 Dose: Not Given Metoprolol Tartrate (Metoprolol Tartrate 12.5 Mg Tablet) 12.5 mg PO Q12HR [facility] Last Admin: 09/10/24 20:16 Dose: 12.5 mg Nitroglycerin (Nitroglycerin Sl 0.4 Mg Tablet) 0.4 mg SUBLINGUAL Q5MIN PRN PRN Reason: Chest Pain Ondansetron HCl (Ondansetron Inj 4 Mg/2 Ml Vial) 4 mg IV PUSH Q4H PRN PRN Reason: Nausea Sedation/Anesthesia: No previous sedation/anesthesia problems (including family history). [facility] Social History Social History Smoking status: Never smoker Alcohol intake: never Do You Feel Safe in your Home?: Yes Lack of Transportation: No Lack of Food: Never True Current Housing: I Have Housing Concerned About Future Housing: No Difficulty Paying Gas/Electric Bills: No Difficulty Paying for Meds: No Currently Unemployed: No Education: Master's Degree or Higher Difficulty w/ Childcare or Family Care: No Spiritual care concerns: No Mod Sed Physical Exam Physical Exam Pre Procedural Exam: Normal: Appearance, Eyes, Ears, Nose, Neck, Throat, Airway, Lungs, Heart Size, Heart Rate, Heart Rhythm, Neuro Exam, Abdomen, Liver, Kidneys, Spleen, Breasts, Genitalia, Extremities and Skin Hours since solid foods: 10 Hours since liquid intake: 10 Mallampati Classification: class III Internal Medicine - PN: Obj Da Vital Signs Vital Signs: Vital Signs - 24 hr 09/10/24 09:55 09/10/24 10:00 09/10/24 12:00 Temperature 36.6 C Pulse Rate 73 67 60 Respiratory Rate 16 Blood Pressure 135/69 Pulse Oximetry 96 Oxygen Delivery 09/10/24 12:00 09/10/24 12:00 09/10/24 14:00 Temperature Pulse Rate 59 L 64 Respiratory Rate Blood Pressure Pulse Oximetry Oxygen Delivery Room Air 09/10/24 16:00 09/10/24 16:00 09/10/24 16:00 Temperature 36.6 C Pulse Rate 61 64 Respiratory Rate 18 Blood Pressure 138/67 Pulse Oximetry 93 Oxygen Delivery Room Air 09/10/24 18:00 09/10/24 19:39 09/10/24 20:00 Temperature 36.6 C Pulse Rate 66 65 Respiratory Rate 17 Blood Pressure 139/73 Pulse Oximetry 91 Oxygen Delivery Room Air 09/10/24 20:00 09/10/24 20:16 09/10/24 23:25 Temperature 36.7 C Pulse Rate 61 65 63 Respiratory Rate 17 Blood Pressure 125/64 Pulse Oximetry 98 Oxygen Delivery 09/10/24 23:55 09/11/24 00:00 09/11/24 03:48 Temperature Pulse Rate 56 L Respiratory Rate Blood Pressure Pulse Oximetry Oxygen Delivery Room Air Room Air 09/11/24 04:00 09/11/24 04:00 09/11/24 08:07 Temperature 36.9 C 36.6 C Pulse Rate 59 L 60 59 L Respiratory Rate 17 20 Blood Pressure 144/68 H 152/71 H Pulse Oximetry 94 96 Oxygen Delivery Intake/Output Intake/Output: Intake & Output 09/08/24 09/09/24 09/10/24 09/11/24 23:59 23:59 23:59 23:59 Intake Total 1408.8 1592.8 94.2 Output Total 1150 1825 Balance 1408.8 442.8 -1730.8 Meds/Results Medications: Active Medications Generic Name Dose Route Start Last Admin Trade Name Freq PRN Reason Stop Dose Admin Acetaminophen 650 mg 09/09/24 14:12 Acetaminophen 325 Mg Tablet PO Q4H PRN Mild Pain (1-3) or Fever Aspirin 81 mg 09/10/24 09:25 09/10/24 09:55 Aspirin 81 Mg Enteric Tablet PO 81 mg QAM NACHO Administration Atorvastatin Calcium 40 mg 09/10/24 09:25 09/10/24 09:55 Atorvastatin 40 Mg Tablet PO Not Given DAILY NACHO Dextrose 12.5 gm 09/10/24 09:06 Dextrose 50% 25 Gm/50 Ml Syringe IV PUSH PRN PRN Hypoglycemia Protocol Glucagon 1 mg 09/10/24 09:06 Glucagon For Inj 1 Mg Vial IM PRN PRN Hypoglycemia Protocol Glucose 15 gm 09/10/24 09:06 Glucose Oral Gel 15 Gm Of Glucse In 37.5 Gm Tube PO PRN PRN Hypoglycemia Protocol Heparin Sodium (Porcine) 4,000 units 09/09/24 12:20 Heparin Sodium 5,000 Units/Ml Vial IV PUSH PRN PRN aPTT less than 55 seconds Heparin Sodium (Porcine) 3,000 units 09/09/24 12:20 09/11/24 06:20 Heparin Sodium 5,000 Units/Ml Vial IV PUSH 3,000 units PRN PRN Administration aPTT 55 - 70 seconds Heparin Sodium/Dextrose 25,000 units in 250 mls @ 12 mls/hr 09/09/24 12:20 09/11/24 06:20 Heparin Sodium/D5w 100 Units/Ml IV CONT 1,200 units/hr .[id number] NACHO 12 mls/hr Titration Protocol 1,200 UNITS/HR Dextrose 1,000 mls @ 100 mls/hr 09/10/24 09:06 Dextrose 5% 1,000 Ml IVPB PRN PRN Hypoglycemia Protocol Insulin Aspart 3 - 6 units 09/10/24 12:00 09/11/24 07:51 Insulin Aspart (*Bkc) 100 Units/Ml SUB-Q Not Given TIDWM [facility] Protocol Insulin Aspart 1 - 3 units 09/10/24 21:00 09/10/24 20:54 Insulin Aspart (*Bkc) 100 Units/Ml SUB-Q Not Given HS [facility] Protocol Insulin Glargine 16 units 09/10/24 21:00 09/10/24 20:55 Insulin Glargine (*Bkc) 100 Units/Ml 0.15 units/kg (16 units) Not Given SUB-Q HS [facility] Metoprolol Tartrate 12.5 mg 09/10/24 09:25 09/10/24 20:16 Metoprolol Tartrate 12.5 Mg Tablet PO 12.5 mg Q12HR NACHO Administration Nitroglycerin 0.4 mg 09/09/24 15:02 Nitroglycerin Sl 0.4 Mg Tablet SUBLINGUAL Q5MIN PRN Chest Pain Ondansetron HCl 4 mg 09/09/24 14:12 Ondansetron Inj 4 Mg/2 Ml Vial IV PUSH Q4H PRN Nausea Radiology Results: ITS Impressions Chest X-Ray 09/09/24 12:35 IMPRESSION: 1. Mild left basilar atelectasis/scarring. Chest CTA 09/09/24 12:38 IMPRESSION: 1. Mild atelectasis at the lingula and the dependent lower lobes. No pulmonary embolism or other acute cardiopulmonary disease. Labs 09/10/24 02:15 09/10/24 02:14 Labs: Laboratory Results - last 24 hr 09/10/24 09/10/24 09/10/24 09:44 11:31 16:15 APTT POC Capillary Glucose 152 H 133 H Troponin I 0.912 H* D 09/10/24 09/11/24 20:46 04:35 APTT 67.3 H POC Capillary Glucose 125 H Troponin I ASA Classification/Sedation ASA Classification/Sedation ASA Class: III Emergent: No Risks: Risks, benefits and alternatives explained and patient/family accepted plan for sedation. Patient re-evaluated immediately prior to sedation.
[2024-09-11 08:34] LABS: Glucose Point of Care 139 mg/dl (65-105)
[2024-09-11] MEDS: METOPROLOL TARTRATE 12.5 MG TABLET PO (08:37)
[2024-09-11] MEDS: ASPIRIN 81 MG ENTERIC TABLET PO (08:37)
--- NOTE | 2024-09-11 08:46 | P.PNIM_ITS ---
Progress Note: A&P Assessment and Plan (1) Chest pain: Code(s): R07.9 - Chest pain, unspecified Status: Acute (2) Non-STEMI (non-ST elevated myocardial infarction): Code(s): I21.4 - Non-ST elevation (NSTEMI) myocardial infarction Status: Acute (3) Elevated glucose: Code(s): R73.09 - Other abnormal glucose Status: Acute Plan 84 y/o M with no known past medical history presents here with intermittent chest pain. Non-STEMI (non-ST elevated myocardial infarction): Code(s): I21.4 - Non-ST elevation (NSTEMI) myocardial infarction Status: Acute Assessment and Plan: EKG, initial: sinus rhythm, left axis deviation, RBBB, voltage criteria for LVH, minimal Q-waves high lateral leads. Repeat EKG showed new T-wave abnormality present, new lateral inversions, possible ischemia now present - CXR:Mild left basilar atelectasis/scarring. - Chest CTA: Mild atelectasis at the lingula and the dependent lower lobes. No pulmonary embolism or other acute cardiopulmonary disease. - Troponin: Positive - ASA 324 given - SL nitro PRN Patient is on heparin gtt Continue telemetry monitoring Appreciate cardiology consultation, patient underwent cardiac catheterization, stent was placed, without complication 09/11 Continue heparin drip per oncology pharmacist recommendation The new diagnosed diabetes Code(s): R73.09 - Other abnormal glucose Status: Acute Assessment and Plan: Initial glucose 183, no previous history of diabetes. Check A1c 6.8. Fasting glucose 131 Meeting criteria of diabetes Consult staff development educator Start insulin sliding scale a.c. q.h.s., Lantus 16 q.h.s. controlled in the target range Will change to oral antihyperglycemic medication on discharge Subjective Date/time seen: 09/11/24 08:46 Interval history: I saw exam patient today, patient underwent CT today, stent was placed. No complication during the procedure. Patient denies chest pain, shortness breast at rest, palpitation, abdomen pain nausea vomiting. Patient afebrile blood pressure stable Objective Data Vital Signs Vital Signs: Vital Signs - 24 hr 09/10/24 09:55 09/10/24 10:00 09/10/24 12:00 Temperature 98 F Pulse Rate 73 67 60 Respiratory Rate 16 Blood Pressure 135/69 Pulse Oximetry 96 Oxygen Delivery 04/28/25 12:00 09/10/24 12:00 09/10/24 14:00 Temperature Pulse Rate 59 L 64 Respiratory Rate Blood Pressure Pulse Oximetry Oxygen Delivery Room Air 09/10/24 16:00 09/10/24 16:00 09/10/24 16:00 Temperature 97.9 F Pulse Rate 61 64 Respiratory Rate 18 Blood Pressure 138/67 Pulse Oximetry 93 Oxygen Delivery Room Air 09/10/24 18:00 09/10/24 19:39 09/10/24 20:00 Temperature 97.8 F Pulse Rate 66 65 Respiratory Rate 17 Blood Pressure 139/73 Pulse Oximetry 91 Oxygen Delivery Room Air 09/10/24 20:00 09/10/24 20:16 09/10/24 23:25 Temperature 98.0 F Pulse Rate 61 65 63 Respiratory Rate 17 Blood Pressure 125/64 Pulse Oximetry 98 Oxygen Delivery 09/10/24 23:55 09/11/24 00:00 09/11/24 03:48 Temperature Pulse Rate 56 L Respiratory Rate Blood Pressure Pulse Oximetry Oxygen Delivery Room Air Room Air 09/11/24 04:00 09/11/24 04:00 09/11/24 08:07 Temperature 98.4 F 97.9 F Pulse Rate 59 L 60 59 L Respiratory Rate 17 20 Blood Pressure 144/68 H 152/71 H Pulse Oximetry 94 96 Oxygen Delivery 09/11/24 08:37 Temperature Pulse Rate 63 Respiratory Rate Blood Pressure Pulse Oximetry Oxygen Delivery Intake/Output Intake/Output: Intake & Output 09/08/24 09/09/24 09/10/24 09/11/24 23:59 23:59 23:59 23:59 Intake Total 1408.8 1592.8 94.2 Output Total 1150 1825 Balance 1408.8 442.8 -1730.8 Meds/Results Medications: Active Medications Generic Name Dose Route Start Last Admin Trade Name Freq PRN Reason Stop Dose Admin Acetaminophen 650 mg 09/09/24 14:12 Acetaminophen 325 Mg Tablet PO Q4H PRN Mild Pain (1-3) or Fever Aspirin 81 mg 09/10/24 09:25 09/11/24 08:37 Aspirin 81 Mg Enteric Tablet PO 81 mg QAM NACHO Administration Atorvastatin Calcium 40 mg 09/10/24 09:25 09/11/24 08:37 Atorvastatin 40 Mg Tablet PO Not Given DAILY NACHO Dextrose 12.5 gm 09/10/24 09:06 Dextrose 50% 25 Gm/50 Ml Syringe IV PUSH PRN PRN Hypoglycemia Protocol Glucagon 1 mg 09/10/24 09:06 Glucagon For Inj 1 Mg Vial IM PRN PRN Hypoglycemia Protocol Glucose 15 gm 09/10/24 09:06 Glucose Oral Gel 15 Gm Of Glucse In 37.5 Gm Tube PO PRN PRN Hypoglycemia Protocol Heparin Sodium (Porcine) 4,000 units 09/09/24 12:20 Heparin Sodium 5,000 Units/Ml Vial IV PUSH PRN PRN aPTT less than 55 seconds Heparin Sodium (Porcine) 3,000 units 09/09/24 12:20 09/11/24 06:20 Heparin Sodium 5,000 Units/Ml Vial IV PUSH 3,000 units PRN PRN Administration aPTT 55 - 70 seconds Heparin Sodium/Dextrose 25,000 units in 250 mls @ 12 mls/hr 09/09/24 12:20 09/11/24 06:20 Heparin Sodium/D5w 100 Units/Ml IV CONT 1,200 units/hr .[id number] NACHO 12 mls/hr Titration Protocol 1,200 UNITS/HR Dextrose 1,000 mls @ 100 mls/hr 09/10/24 09:06 Dextrose 5% 1,000 Ml IVPB PRN PRN Hypoglycemia Protocol Insulin Aspart 3 - 6 units 09/10/24 12:00 09/11/24 07:51 Insulin Aspart (*Bkc) 100 Units/Ml SUB-Q Not Given TIDWM [facility] Protocol Insulin Aspart 1 - 3 units 09/10/24 21:00 09/10/24 20:54 Insulin Aspart (*Bkc) 100 Units/Ml SUB-Q Not Given HS [facility] Protocol Insulin Glargine 16 units 09/10/24 21:00 09/10/24 20:55 Insulin Glargine (*Bkc) 100 Units/Ml 0.15 units/kg (16 units) Not Given SUB-Q HS [facility] Metoprolol Tartrate 12.5 mg 09/10/24 09:25 09/11/24 08:37 Metoprolol Tartrate 12.5 Mg Tablet PO 12.5 mg Q12HR NACHO Administration Nitroglycerin 0.4 mg 09/09/24 15:02 Nitroglycerin Sl 0.4 Mg Tablet SUBLINGUAL Q5MIN PRN Chest Pain Ondansetron HCl 4 mg 09/09/24 14:12 Ondansetron Inj 4 Mg/2 Ml Vial IV PUSH Q4H PRN Nausea Radiology Results: ITS Impressions Chest X-Ray 09/09/24 12:35 IMPRESSION: 1. Mild left basilar atelectasis/scarring. Chest CTA 09/09/24 12:38 IMPRESSION: 1. Mild atelectasis at the lingula and the dependent lower lobes. No pulmonary embolism or other acute cardiopulmonary disease. Labs Labs: Laboratory Results - last 24 hr 09/10/24 09/10/24 09/10/24 09:44 11:31 16:15 APTT POC Capillary Glucose 152 H 133 H Troponin I 0.912 H* D 09/10/24 09/11/24 09/11/24 20:46 04:35 08:32 APTT 67.3 H POC Capillary Glucose 125 H 139 H Troponin I
[2024-09-11 10:58] LABS: Activated Clotting Time 279 SEC (74-137)
[2024-09-11 10:58] LABS: Activated Clotting Time 268 SEC (74-137)
[2024-09-11] MEDS: SODIUM CHLORIDE 0.9% IV 1,000 ML 125 ML IV CONT (11:29)
--- NOTE | 2024-09-11 11:38 | P.PCNCC_ITS ---
Cardiac Cath Procedure Note Date of procedure:: 09/11/24 Performing physician:: Loco Ramos MD Indication:: NSTEMI Procedure Procedure performed:: 1. Left heart catheterization 2. Coronary angiography 3. Successful PCI of prox-mid LAD with overlapping Orsiro 3.0/22, 2.5/22 and 2.25/22 mm ROBIN (provisional stenting of LAD/diag), postdilated distally to 2.5- 2.55 and proximally to 3.55-3.60. No complications. JYOTSNA 3 flow. Jailed Diagonal with ostial 50% residual stenosis (JYOTSNA 2-3 Flow, no chest pain or EKG changes) Sedation/Medication given:: 2 mg Versed 50 mcg Fentanyl Access site:: Right Radial Estimated blood loss:: 10-15 cc Procedure note:: The patient was brought to the catheterization the cardiac catheterization lab. Informed consent was taken. The patient was prepped and draped in usual sterile manner. Right radial access was taken after infiltration of lidocaine. A 5-6 Setswana sheath was placed. A JL3 5 catheter was used to engage the left coronary artery and the JR4 catheter was used to engage the right coronary artery. Multiple cine angiographic images were taken in different projections. The aortic valve was crossed and LVEDP was measured. LV angiogram was done with only 10 cc contrast/400 pSI as no echo was done prior to the [facility]. We decided to proceed with PCI of the LAD. EBU 3 5 guide was used to engage the left main. SAND CONDITIONER was performed with you of which, a CT was maintained more than 250 at all times. Patient was loaded with aspirin Plavix 600 mg. Plavix was used as he is 84-year-old. The LAD and diagonal wide the run-through was. The lesions in the LAD was pre- dilated with 2.25 balloon. The ostium of the diagonal was pre-dilated with the scoring balloon.. First using balloon inflation was performed with a 2.25 balloon in the diagonal and 2.5 balloon in the LAD. ROS was done to assist MLD and to help with post dilatation Distal-third of the LAD was stented with a 2.25/22 mm ROBIN. Subsequently 2 more overlapping stents were placed measuring 2.5 x 22 mm and 3 x 22 mm ROBIN. The ostium of the diagonal was jailed and showed residual 40-50% stenosis with JYOTSNA 2-3 flow. There was no chest pain or EKG changes. We tried to wire the ostium of the diagonal with a run-through wire. However because of the angulation of the diagonal we were unable to do so. Unfortunately the lab did not have an angled micro catheter. Because of the nonavailability of an angled microcatheter, good JYOTSNA flow distally and absence of any chest pain or EKG changes was decided not to proceed with wiring of the diagonal. There was excellent flow in the LAD/diagonal the procedure, no residual stenosis in the LAD, 50% residual stenosis in the ostium of the jailed diagonal. Subsequently, the EBU catheter was removed and the radial sheath was removed out of the procedure and TR band was placed for hemostasis Findings:: 1 Coronary angiography.? Right dominant system with NO ramus intermedius. Left main artery: large caliber, intermediately and divides into left anterior descending and left circumflex branches.? No angiographic evidence of atheroscle rotic disease. Left anterior descending artery: large caliber vessel which reaches the apex and gives rise to a small caliber diagonal branch. The mid LAD has a 80% stenosis after the take-off of the diagonal branch. Distal to the mid LAD has a 99% stenosis. The ostium of the diagonal has 50% stenosis. Left circumflex artery:? Large caliber dominant vessel which gives rise to to moderate caliber marginal branches. Luminal irregularity seen in the mid circumflex Right coronary artery: Moderate caliber nondominant vessel divides into PDA and PLV branches. ?Luminal irregularities in the mid RCA 2. Left heart catheterization LVEDP 21 mm Hg No significant gradient across the LV-AO Left ventriculography shows LVEF 55-60% Conclusion:: 1. Single-vessel critical stenosis, bifurcation lesion 2. Successful PCI of prox-mid LAD with overlapping Orsiro 3.0/22, 2.5/22 and 2.25/22 mm ROBIN (provisional stenting of LAD/diag), postdilated distally to 2.5- 2.55 and proximally to 3.55-3.60. No complications. JYOTSNA 3 flow. POBA of Diagonal with ostial 50% residual stenosis (JYOTSNA 2-3 Flow, no chest pain or EKG changes) Assessment and Plan Assessment and plan (1) Non-STEMI (non-ST elevated myocardial infarction): Code(s): I21.4 - Non-ST elevation (NSTEMI) myocardial infarction Status: Acute Plan 1. Hemostasis achieved with a TR band, as per protocol 2. Uninterrupted the APTT for at least 12 months, longer if tolerated. Has substantial stent burden 3. Cardiovascular risk factor modification 4. Echo to assess LV function 5. Cardiac rehab
[2024-09-11 13:40] LABS: INR 1.1; Prothrombin Time 14.5 Seconds (11.1-14.7)
[2024-09-11 13:46] LABS: Basophils Absolute Auto 0.1 K/mm3 (0.0-0.1); Basophils Percent Auto 0.8 % (0.2-1.2); Eosinophils Percent Auto 0.4 % (0-4.4); Hematocrit 52.1 % (42.0-52.0); Hemoglobin 16.9 g/dL (14.0-18.0); Immature Granulocyte Absolute 0.02 K/mm3 (0.00-0.031); Immature Granulocyte Percent A 0.3 % (0-0.5); Lymphocytes Absolute Auto 1.34 K/mm3 (0.9-3.2); Lymphocytes Percent Auto 18.2 % (18.3-44.2); Mean Corpuscular HGB Conc 32.4 g/dl (32-36); Mean Corpuscular Hemoglobin 30.8 pg (26-34); Mean Corpuscular Volume 94.9 fl (80-100); Mean Platelet Volume 8.9 fl (7.4-10.4); Monocytes Absolute Auto 0.4 K/mm3 (0.1-0.6); Monocytes Percent Auto 5.3 % (2.6-8.5); Neutrophils Absolute Auto 5.5 K/mm3 (1.3-6.7); Platelet Count Result 237 k/mm3 (150-375); Red Blood Count 5.49 M/mm3 (4.6-6.20); Red Cell Distribution Width 13.2 % (11.5-14.5); White Blood Count 7.4 K/mm3 (4.5-10.0)
[2024-09-11 13:56] LABS: Glucose Point of Care 169 mg/dl (65-105)
[2024-09-11 14:14] LABS: Partial Thromboplastin Time 195.7 Seconds (22.3-36.8)
--- NOTE | 2024-09-11 14:20 | PC.NURSE ---
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 Critical PTT called to Dr. Manning.
[2024-09-11 15:59] LABS: Glucose Point of Care 167 mg/dl (65-105)
[2024-09-11] MEDS: HEPARIN SOD/D5W 100 UNITS/ML 25,000 UNITS/250 ML BAG 12 UNITS IV CONT ×2 (16:28→21:24)
[2024-09-11 20:28] LABS: Glucose Point of Care 149 mg/dl (65-105)
[2024-09-12] VITALS (8 sets, daily range): BP systolic 112–153; BP diastolic 49–67; PULSE 56–82; RESP 20; TEMP 36.6–37.2; O2SAT 93–96
--- NOTE | 2024-09-12 | ECHO_ITS ---
Patient Info Name: Oscar Michele Age: 84 years : 1940 Gender: Male Ht: 71 in Wt: 238 lbs BSA: 2.36 m2 HR: 66 bpm BP: 143 / 65 mmHg Heart Rhythm: Sinus Rhythm Technical Quality: Fair Exam Date: 09/12/2024 9:20 AM Exam Location: Echo Lab Patient Status: Inpatient Admit Date: 09/09/2024 Staff Ordering Physician: Loco Ramos MD (sarah/libra) Cardiac Technologist: Itzel Davison RDCS Attending Provider: Wiliam Rodriguez MD Referring Physician: Rachel ABRAHAM; Exam Type: CA echo doppler color flow Study Info Indications - NSTEMI Complete two-dimensional, color flow and Doppler transthoracic echocardiogram is performed. Summary 1. Complete two-dimensional, color flow and Doppler transthoracic echocardiogram is performed. 2. Left ventricular systolic function is hyperdynamic, estimated at >70%. 3. There is mildly increased left ventricular wall thickness. 4. The left ventricular diastolic function is grade I diastolic dysfunction. 5. There is trace tricuspid valve regurgitation. 6. No pulmonary hypertension, estimated pulmonary arterial systolic pressure is 15 mmHg. Left Ventricle Left ventricular chamber dimension is normal. Left ventricular systolic function is hyperdynamic, estimated at >70%. There is mildly increased left ventricular wall thickness. Left ventricular septal wall motion is normal. The left ventricular diastolic function is grade I diastolic dysfunction. Right Ventricle Right ventricular chamber dimension is normal. Right ventricular systolic function is normal. Left Atria Left atrial chamber dimension is normal. Right Atria Right atrial chamber dimension is normal. Aortic Valve The aortic valve is trileaflet. There is no aortic valve sclerosis. There is no aortic valve stenosis. There is no aortic valve regurgitation. Pulmonic Valve The pulmonic valve is normal. There is no pulmonic valve stenosis. There is no pulmonic regurgitation. Mitral Valve The mitral valve has normal leaflets. There is no mitral valve stenosis. There is no mitral valve regurgitation. Tricuspid Valve The tricuspid valve leaflets are normal. There is no significant tricuspid valve stenosis. There is trace tricuspid valve regurgitation. No pulmonary hypertension, estimated pulmonary arterial systolic pressure is 15 mmHg. Pericardium/Pleural The pericardium appears normal. There is no pericardial effusion. Inferior Vena Cava Normal inferior vena cava with >50% collapse upon inspiration consistent with Empty right atrial pressure, 5 mmHg. Aorta The aortic root size at the sinus of Valsalva is normal. The prox ascending aorta size is normal. Left Ventricular Outflow Tract Name Value Normal LVOT 2D LVOT Diameter 2.0 cm LVOT Doppler LVOT Peak Gradient 9 mmHg LVOT Mean Gradient 5 mmHg LVOT VTI 33 cm LVOT VTI/AV VTI Ratio 0.9 LVOT Stroke Volume 101 ml LVOT CO 8.2 l/min LVOT CI 3.5 l/min/m2 Pulmonic Valve Name Value Normal RVOT Doppler RVOT Peak Gradient 4 mmHg Mitral Valve Name Value Normal MV Doppler MV Decel [place] 235 cm/s2 MV PHT 67 ms MV Area (PHT) 3.3 cm2 4.0-5.0 MV Diastolic Function MV E Peak Velocity 54 cm/s MV A Peak Velocity 70 cm/s MV E/A 0.8 MV Decel Time 230 ms MV Annular TDI MV E/e' (Septal) 11.2 <=8.0 MV E/e' (Lateral) 9.2 <=8.0 MV E/e' (Average) 10.2 Tricuspid Valve Name Value Normal TV Regurgitation Doppler TR Peak Velocity 162 cm/s TR Peak Gradient 10 mmHg Estimated PAP/RSVP RA Pressure 5 mmHg <=5 PA Systolic Pressure 15 mmHg <36 RV Systolic Pressure 15 mmHg <36 Aortic Valve Name Value Normal AV Doppler AV Peak Velocity 173 cm/s AV Peak Gradient 12 mmHg AV Mean Gradient 7 mmHg AV VTI 36 cm AV Area (Cont Eq VTI) 2.8 cm2 >=3.0 AV Area (Cont Eq Alphonso) 2.8 cm2 AV Regurgitation 2D LVOT Area 3.1 cm2 Ventricles Name Value Normal LV Dimensions 2D/MM IVS Diastolic Thickness (2D) 1.3 cm 0.6-1.0 LVID Diastole (2D) 5.6 cm 4.2-5.8 LVIW Diastolic Thickness (2D) 1.3 cm 0.6-1.0 LVID Systole (2D) 3.7 cm 2.5-4.0 LVOT Diameter 2.0 cm LV Mass (2D Cubed) 320.56 g 88.00-224.00 LV Mass Index (2D Cubed) 136 g/m2 49-115 Relative Wall Thickness (2D) 0.48 LV Fractional Shortening/Ejection Fraction 2D/MM LV Fractional Shortening (2D) 34 % 25-43 LV EF (2D Teicholz) 62 % 52-72 LV Diastolic Volume (4C MOD) 165 ml LV EF (4C MOD) 55 % LV Diastolic Volume (2C MOD) 198 ml LV EF (2C MOD) 69 % LV Diastolic Volume (BP MOD) 180 ml 62-150 LV Diastolic Volume Index (BP MOD) 76 ml/m2 34-74 LV Systolic Volume (BP MOD) 71 ml 21-61 LV Systolic Volume Index (BP MOD) 30 ml/m2 11-31 LV EF (BP MOD) 61 % 52-72 LV Diastolic Length (4C) 8.7 cm LV Systolic Length (4C) 7.6 cm LV Stroke Volume (4C MOD) 90 ml Atria Name Value Normal LA Dimensions LA Volume (4C A-L) 67 ml LA Volume (BP A-L) 73 ml RA Dimensions RA Area (4C) 16.5 cm2 <=18.0 Report Signatures
--- NOTE | 2024-09-12 00:16 | PC.NURSE ---
Patient refused lantus insulin tonight. Patient states he is going home tomorrow afternoon on oral medications, his FSBS is only 149, and he is not going to start taking insulin tonight. Also states he does not want to start insulin in the hospital. He wants to talk to his normal general practitioner before he starts insulin. Educated patient on Lantus use, indications, long acting, etc. Also educated patient on A1c and hospital routines. Patient states understanding but continues to refuse.
[2024-09-12 04:48] LABS: Basophils Percent Auto 0.4 % (0.2-1.2); Eosinophils Absolute Auto 0.1 K/mm3 (0-0.3); Eosinophils Percent Auto 0.5 % (0-4.4); Hematocrit 47.9 % (42.0-52.0); Hemoglobin 15.9 g/dL (14.0-18.0); Immature Granulocyte Absolute 0.04 K/mm3 (0.00-0.031); Immature Granulocyte Percent A 0.4 % (0-0.5); Lymphocytes Absolute Auto 2.13 K/mm3 (0.9-3.2); Lymphocytes Percent Auto 20.1 % (18.3-44.2); Mean Corpuscular HGB Conc 33.2 g/dl (32-36); Mean Corpuscular Hemoglobin 30.9 pg (26-34); Mean Platelet Volume 8.8 fl (7.4-10.4); Monocytes Percent Auto 9.3 % (2.6-8.5); Neutrophils Absolute Auto 7.4 K/mm3 (1.3-6.7); Neutrophils Percent Auto 69.3 % (45.5-73.1); Platelet Count Result 229 k/mm3 (150-375); Red Blood Count 5.15 M/mm3 (4.6-6.20); Red Cell Distribution Width 13.2 % (11.5-14.5); White Blood Count 10.6 K/mm3 (4.5-10.0)
[2024-09-12 05:03] LABS: Partial Thromboplastin Time 83.5 Seconds (22.3-36.8)
--- NOTE | 2024-09-12 07:00 | ECG_ITS ---
Test Date: 2024-09-12 07:30:37 Measurements Intervals [place] Rate: 66 P: 58 FL: 146 QRS: -27 QRSD: 137 T: -23 QT: 389 QTc: 408 Interpretive Statements SINUS RHYTHM RIGHT BUNDLE BRANCH BLOCK VOLTAGE CRITERIA FOR LVH MINIMAL Q WAVES- HIGH LATERAL LEADS BASELINE ARTIFACT- V5 ABNORMAL ECG Compared to ECG 09/09/2024 18:02:37 POSSIBLE ISCHEMIA NO LONGER PRESENT Electronically Signed On 09-12-2024 08:06:18 CDT by Jd Lerner D.O.
[2024-09-12 07:47] LABS: Glucose Point of Care 150 mg/dl (65-105)
--- NOTE | 2024-09-12 08:54 | PM.PNCARD ---
Progress Note: A&P Assessment and Plan (1) Non-STEMI (non-ST elevated myocardial infarction): Code(s): I21.4 - Non-ST elevation (NSTEMI) myocardial infarction Status: Acute Plan 1. CAD, single vessel ds 2. HTN 3. Hyperlipidemia [facility] (09/12/2024) -- mLAD prox-third 80%, mLAD distal-third 99%, ostial diag 50% -- Successful PCI of prox-mid LAD with overlapping Orsiro 3.0/22, 2.5/22 and 2.25/22 mm ROBIN (provisional stenting of LAD/diag), postdilated distally to 2.5-2.55 and proximally to 3.55-3.60. No complications. JYOTSNA 3 flow. Jailed Diagonal with ostial 50% residual stenosis (JYOTSNA 2-3 Flow, no chest pain or EKG changes) [facility] (08/16/2024) EF 65-70%, formal read pending - Uninterrupted the APTT for at least 12 months, longer if tolerated. Has substantial stent burden - Continue Lipitor 80 - Continue Imdur 30, will stop at clinic visit if no symptoms - Cardiac rehab Subjective Date/time seen: 09/12/24 08:54 Interval history: s/p PCI of prox-mid LAD No acute events overnight No chest pain or dyspnea Hemoglobin and renal function stable Review of Systems Review of Systems: As reviewed above in HPI All systems reviewed & are unremarkable except as noted in HPI and below Exam Narrative: trace edema to BLE Const: General: comfortable and no acute distress Other: , male, elderly, nontoxic appearance HENMT: Face/Nose/Sinus: Normal nares present Mouth: Yes moist mucous membranes Eyes: General: appearance normal, both eyes and all related structures Sclera: sclerae normal Pupils: Equal, round and reactive pupils present EOM: EOMs intact bilaterally Resp: Effort & Inspection: normal respiratory effort Auscultation: clear to auscultation bilaterally Cardio: Rate: regular rate Rhythm: regular rhythm Other: S1-S2 present without murmur, rub, ectopy GI: Other: Abdomen rounded, soft, nondistended. Normoactive bowel sounds in all quadrants. Skin: General skin exam: normal color and no rashes or lesions noted Wounds: no wounds Neuro: Cranial nerves: Yes Equal, round and reactive pupils present Speech: normal speech Motor exam (neuro): 5/5 motor strength present throughout Sensory Exam: normal sensation Other: A&O x4 Extrem: Other: Trace edema to bilateral lower extremities, primarily at the ankles, and symmetric. Psych: Mental Status: mental status grossly normal Affect: normal affect Other: Very good insight and judgment, very pleasant. Objective Data Vital Signs Vital Signs: Vital Signs - 24 hr 09/11/24 11:15 09/11/24 11:15 09/11/24 11:30 Temperature Pulse Rate 52 L 51 L Pulse Rate [Right Radial] 52 L Respiratory Rate 15 16 Blood Pressure 98/50 L 154/55 H Pulse Oximetry 96 95 Oxygen Delivery Room Air Room Air Fraction of Inspired Oxygen 09/11/24 11:30 09/11/24 11:45 09/11/24 11:45 Temperature Pulse Rate 47 L Pulse Rate [Right Radial] 51 L 47 L Respiratory Rate 14 Blood Pressure 129/57 L Pulse Oximetry 93 Oxygen Delivery Room Air Fraction of Inspired Oxygen 09/11/24 12:00 09/11/24 12:00 09/11/24 12:15 Temperature Pulse Rate 57 L 57 L Pulse Rate [Right Radial] 57 L Respiratory Rate 16 16 Blood Pressure 129/59 L 134/64 Pulse Oximetry 94 94 Oxygen Delivery Room Air Room Air Fraction of Inspired Oxygen 09/11/24 12:15 09/11/24 12:30 09/11/24 12:30 Temperature Pulse Rate 50 L Pulse Rate [Right Radial] 57 L 50 L Respiratory Rate 15 Blood Pressure 131/62 Pulse Oximetry 95 Oxygen Delivery Room Air Fraction of Inspired Oxygen 09/11/24 12:45 09/11/24 12:45 09/11/24 13:00 Temperature Pulse Rate 48 L Pulse Rate [Right Radial] 48 L 54 L Respiratory Rate 14 Blood Pressure 142/70 H Pulse Oximetry 94 Oxygen Delivery Room Air Fraction of Inspired Oxygen 09/11/24 13:00 09/11/24 13:15 09/11/24 13:15 Temperature Pulse Rate 54 L 49 L Pulse Rate [Right Radial] 49 L Respiratory Rate 16 14 Blood Pressure 135/71 139/76 Pulse Oximetry 95 97 Oxygen Delivery Room Air Room Air Fraction of Inspired Oxygen 09/11/24 13:30 09/11/24 13:30 09/11/24 13:45 Temperature Pulse Rate 52 L Pulse Rate [Right Radial] 52 L 52 L Respiratory Rate 16 Blood Pressure 133/61 Pulse Oximetry 97 Oxygen Delivery Room Air Fraction of Inspired Oxygen 09/11/24 13:45 09/11/24 14:00 09/11/24 14:00 Temperature Pulse Rate 52 L 57 L Pulse Rate [Right Radial] 57 L Respiratory Rate 15 18 Blood Pressure 104/54 L 127/72 Pulse Oximetry 97 97 Oxygen Delivery Room Air Room Air Fraction of Inspired Oxygen 09/11/24 14:15 09/11/24 14:15 09/11/24 14:30 Temperature Pulse Rate 52 L Pulse Rate [Right Radial] 52 L 55 L Respiratory Rate 17 Blood Pressure 127/67 Pulse Oximetry 97 Oxygen Delivery Room Air Fraction of Inspired Oxygen 09/11/24 14:30 09/11/24 14:45 09/11/24 14:45 Temperature Pulse Rate 55 L 52 L Pulse Rate [Right Radial] 52 L Respiratory Rate 18 16 Blood Pressure 131/58 L 96/49 L Pulse Oximetry 97 97 Oxygen Delivery Room Air Room Air Fraction of Inspired Oxygen 09/11/24 15:00 09/11/24 15:00 09/11/24 15:15 Temperature Pulse Rate 60 Pulse Rate [Right Radial] 60 60 Respiratory Rate 17 Blood Pressure 128/68 Pulse Oximetry 96 Oxygen Delivery Room Air Fraction of Inspired Oxygen 09/11/24 15:15 09/11/24 16:00 09/11/24 16:00 Temperature Pulse Rate 60 65 Pulse Rate [Right Radial] Respiratory Rate 15 Blood Pressure 155/58 H Pulse Oximetry 96 Oxygen Delivery Room Air Room Air Fraction of Inspired Oxygen 09/11/24 16:08 09/11/24 17:15 09/11/24 17:58 Temperature 36.6 C 36.5 C Pulse Rate 63 75 58 L Pulse Rate [Right Radial] Respiratory Rate 18 20 Blood Pressure 113/61 134/60 Pulse Oximetry 94 95 Oxygen Delivery Fraction of Inspired Oxygen 09/11/24 20:00 09/11/24 20:00 09/11/24 20:00 Temperature 36.6 C Pulse Rate 68 58 L Pulse Rate [Right Radial] Respiratory Rate 20 Blood Pressure 131/52 L Pulse Oximetry 98 Oxygen Delivery Room Air Fraction of Inspired Oxygen 09/11/24 21:59 09/11/24 22:00 09/11/24 23:49 Temperature Pulse Rate 65 56 L Pulse Rate [Right Radial] Respiratory Rate 20 Blood Pressure Pulse Oximetry 94 Oxygen Delivery Room Air Room Air Fraction of Inspired Oxygen 21 09/12/24 00:00 09/12/24 00:00 09/12/24 02:00 Temperature 36.6 C Pulse Rate 66 62 56 L Pulse Rate [Right Radial] Respiratory Rate 20 Blood Pressure 140/59 L Pulse Oximetry 94 Oxygen Delivery Fraction of Inspired Oxygen 09/12/24 04:00 09/12/24 04:00 09/12/24 04:00 Temperature 36.8 C Pulse Rate 70 66 Pulse Rate [Right Radial] Respiratory Rate 20 Blood Pressure 143/65 H Pulse Oximetry 96 Oxygen Delivery Room Air Fraction of Inspired Oxygen 09/12/24 06:32 09/12/24 07:57 Temperature 36.8 C Pulse Rate 66 72 Pulse Rate [Right Radial] Respiratory Rate 20 Blood Pressure 153/67 H Pulse Oximetry 95 Oxygen Delivery Fraction of Inspired Oxygen Intake/Output Intake/Output: Intake & Output 09/09/24 09/10/24 09/11/24 09/12/24 23:59 23:59 23:59 23:59 Intake Total 1408.8 1592.8 725.6 481.8 Output Total 1150 2125 550 Balance 1408.8 442.8 -1399.4 -68.2 Meds/Results Medications: Active Medications Generic Name Dose Route Start Last Admin Trade Name Freq PRN Reason Stop Dose Admin Acetaminophen 650 mg 09/09/24 14:12 Acetaminophen 325 Mg Tablet PO Q4H PRN Fever Aspirin 81 mg 09/10/24 09:25 09/11/24 08:37 Aspirin 81 Mg Enteric Tablet PO 81 mg QAM [facility] Administration Atorvastatin Calcium 80 mg 09/12/24 09:00 Atorvastatin 40 Mg Tablet PO DAILY [facility] Clopidogrel Bisulfate 75 mg 09/12/24 22:00 Clopidogrel Bisulfate 75 Mg Tablet PO QAM [facility] Dextrose 12.5 gm 09/10/24 09:06 Dextrose 50% 25 Gm/50 Ml Syringe IV PUSH PRN PRN Hypoglycemia Protocol Glucagon 1 mg 09/10/24 09:06 Glucagon For Inj 1 Mg Vial IM PRN PRN Hypoglycemia Protocol Glucose 15 gm 09/10/24 09:06 Glucose Oral Gel 15 Gm Of Glucse In 37.5 Gm Tube PO PRN PRN Hypoglycemia Protocol Heparin Sodium (Porcine) 4,000 units 09/09/24 12:20 Heparin Sodium 5,000 Units/Ml Vial IV PUSH PRN PRN aPTT less than 55 seconds Heparin Sodium (Porcine) 3,000 units 09/09/24 12:20 09/11/24 06:20 Heparin Sodium 5,000 Units/Ml Vial IV PUSH 3,000 units PRN PRN Administration aPTT 55 - 70 seconds Dextrose 1,000 mls @ 100 mls/hr 09/10/24 09:06 Dextrose 5% 1,000 Ml IVPB PRN PRN Hypoglycemia Protocol Insulin Aspart 3 - 6 units 09/10/24 12:00 09/11/24 17:09 Insulin Aspart (*Bkc) 100 Units/Ml SUB-Q Not Given TIDWM [facility] Protocol Insulin Aspart 1 - 3 units 09/10/24 21:00 09/11/24 21:13 Insulin Aspart (*Bkc) 100 Units/Ml SUB-Q Not Given HS [facility] Protocol Insulin Glargine 16 units 09/10/24 21:00 09/11/24 21:19 Insulin Glargine (*Bkc) 100 Units/Ml 0.15 units/kg (16 units) Not Given SUB-Q HS [facility] Isosorbide Mononitrate 30 mg 09/12/24 09:00 Isosorbide Mononitrate 30 Mg Tab.Er.24h PO QAM [facility] Nitroglycerin 0.4 mg 09/09/24 15:02 Nitroglycerin Sl 0.4 Mg Tablet SUBLINGUAL Q5MIN PRN Chest Pain Ondansetron HCl 4 mg 09/09/24 14:12 Ondansetron Inj 4 Mg/2 Ml Vial IV PUSH Q4H PRN Nausea Ondansetron HCl 4 mg 09/11/24 11:29 Ondansetron Hcl Odt 4 Mg Tablet PO 09/12/24 11:28 Q4-6H PRN Nausea Perflutren Lipid Microsphere 0 ml 09/11/24 18:33 Perflutren Lipid Microspheres 1.5 Ml Vial Diluted To 10 Ml Total Volume IV PUSH 09/14/24 18:34 ONCE PRN adequate visualization Protocol Tramadol HCl 50 mg 09/11/24 11:29 Tramadol Hcl (*Crx) 50 Mg Tablet PO Q4-6H PRN Pain Rated 1-3 Radiology Results: ITS Impressions Chest X-Ray 09/09/24 12:35 IMPRESSION: 1. Mild left basilar atelectasis/scarring. Chest CTA 09/09/24 12:38 IMPRESSION: 1. Mild atelectasis at the lingula and the dependent lower lobes. No pulmonary embolism or other acute cardiopulmonary disease. Labs Labs: Laboratory Results - last 24 hr 09/11/24 09/11/24 09/11/24 09:45 10:27 13:09 WBC 7.4 RBC 5.49 Hgb 16.9 Hct 52.1 H MCV 94.9 MCH 30.8 MCHC 32.4 RDW 13.2 Plt Count 237 MPV 8.9 Immature Gran % (Auto) 0.3 Neut % (Auto) 75.0 H Lymph % (Auto) 18.2 L [place] % (Auto) 5.3 Eos % (Auto) 0.4 Baso % (Auto) 0.8 Lymph # (Auto) 1.34 [place] # (Auto) 0.4 Eos # (Auto) 0.0 Baso # (Auto) 0.1 Abs Immat Gran (auto) 0.02 Absolute Neuts (auto) 5.5 Absolute Nucleated RBC 0.000 Nucleated RBC % 0.0 PT 14.5 INR 1.1 APTT 195.7 H* Activ Coag Time Kaolin 268 H 279 H POC Capillary Glucose 09/11/24 09/11/24 09/11/24 13:40 15:51 20:24 WBC RBC Hgb Hct MCV MCH MCHC RDW Plt Count MPV Immature Gran % (Auto) Neut % (Auto) Lymph % (Auto) [place] % (Auto) Eos % (Auto) Baso % (Auto) Lymph # (Auto) [place] # (Auto) Eos # (Auto) Baso # (Auto) Abs Immat Gran (auto) Absolute Neuts (auto) Absolute Nucleated RBC Nucleated RBC % PT INR APTT Activ Coag Time [place] POC Capillary Glucose 169 H 167 H 149 H 09/11/24 09/12/24 09/12/24 22:26 04:30 07:44 WBC 10.6 H RBC 5.15 Hgb 15.9 Hct 47.9 MCV 93.0 MCH 30.9 MCHC 33.2 RDW 13.2 Plt Count 229 MPV 8.8 Immature Gran % (Auto) 0.4 Neut % (Auto) 69.3 Lymph % (Auto) 20.1 [place] % (Auto) 9.3 H Eos % (Auto) 0.5 Baso % (Auto) 0.4 Lymph # (Auto) 2.13 [place] # (Auto) 1.0 H Eos # (Auto) 0.1 Baso # (Auto) 0.0 Abs Immat Gran (auto) 0.04 H Absolute Neuts (auto) 7.4 H Absolute Nucleated RBC 0.000 Nucleated RBC % 0.0 PT INR APTT 77.0 H 83.5 H Activ Coag Time Kaolin POC Capillary Glucose 150 H
[2024-09-12] MEDS: ATORVASTATIN 40 MG TABLET 80 MG PO (08:58)
[2024-09-12] MEDS: ASPIRIN 81 MG ENTERIC TABLET PO (08:58)
[2024-09-12] MEDS: ISOSORBIDE MONONITRATE 30 MG TAB.ER.24H PO (08:58)
--- NOTE | 2024-09-12 09:36 | P.PNIM_ITS ---
Progress Note: A&P Assessment and Plan (1) Chest pain: Code(s): R07.9 - Chest pain, unspecified Status: Acute (2) Non-STEMI (non-ST elevated myocardial infarction): Code(s): I21.4 - Non-ST elevation (NSTEMI) myocardial infarction Status: Acute (3) Elevated glucose: Code(s): R73.09 - Other abnormal glucose Status: Acute Plan 84 y/o M with no known past medical history presents here with intermittent chest pain. Non-STEMI (non-ST elevated myocardial infarction): Code(s): I21.4 - Non-ST elevation (NSTEMI) myocardial infarction Status: Acute Assessment and Plan: EKG, initial: sinus rhythm, left axis deviation, RBBB, voltage criteria for LVH, minimal Q-waves high lateral leads. Repeat EKG showed new T-wave abnormality present, new lateral inversions, possible ischemia now present - CXR:Mild left basilar atelectasis/scarring. - Chest CTA: Mild atelectasis at the lingula and the dependent lower lobes. No pulmonary embolism or other acute cardiopulmonary disease. - Troponin: Positive - ASA 324 given - SL nitro PRN Patient is on heparin gtt Continue telemetry monitoring Appreciate cardiology consultation, patient underwent cardiac catheterization, stent was placed, without complication 09/11 Discontinue heparin drip,. Continue aspirin 81 mg daily p.o., Plavix 75 mg daily p.o., Lipitor 80 mg daily p.o., Imdur 30 mg daily p.o. The new diagnosed diabetes Code(s): R73.09 - Other abnormal glucose Status: Acute Assessment and Plan: Initial glucose 183, no previous history of diabetes. Check A1c 6.8. Fasting glucose 131 Meeting criteria of diabetes Consult clinical educator Received insulin sliding scale a.c. q.h.s., Lantus 16 q.h.s. controlled in the target range Changed to Amaryl 2 mg daily p.o., metformin 500 mg b.i.d. p.o., continue insulin sliding scale a.c. q.h.s. on discharge Subjective Date/time seen: 09/12/24 09:36 Interval history: I saw exam patient today. Patient denies chest pain, shortness breast at rest, palpitation, abdomen pain nausea vomiting. Patient afebrile blood pressure stable Exam Narrative: GENERAL: Pleasant, in no acute distress. Well-nourished. - EYES: EOMI. Anicteric. - HENT: Moist mucous membranes. - LUNGS: Clear to auscultation bilateral ly, no wheezing, rhonchi, or rales. - CARDIOVASCULAR: Regular rate and rhyth m. No murmur. No JVD. - ABDOMEN: Soft, non-tender and non-dist ended. No palpable masses. - EXTREMITIES: No edema. Peripheral puls es 2+. Non-tender. - NEUROLOGIC: No focal neurological defi cits. CN II-XII grossly intact. - PSYCHIATRIC: Awake, Alert and oriented x 3. Appropriate mood and affect. - SKIN: No rashes or lesions. Warm. - LYMPH: No cervical lymphadenopathy. Objective Data Vital Signs Vital Signs: Vital Signs - 24 hr 09/11/24 11:15 09/11/24 11:15 09/11/24 11:30 Temperature Pulse Rate 52 L 51 L Pulse Rate [Right Radial] 52 L Respiratory Rate 15 16 Blood Pressure 98/50 L 154/55 H Pulse Oximetry 96 95 Oxygen Delivery Room Air Room Air Fraction of Inspired Oxygen 09/11/24 11:30 09/11/24 11:45 09/11/24 11:45 Temperature Pulse Rate 47 L Pulse Rate [Right Radial] 51 L 47 L Respiratory Rate 14 Blood Pressure 129/57 L Pulse Oximetry 93 Oxygen Delivery Room Air Fraction of Inspired Oxygen 09/11/24 12:00 09/11/24 12:00 09/11/24 12:15 Temperature Pulse Rate 57 L 57 L Pulse Rate [Right Radial] 57 L Respiratory Rate 16 16 Blood Pressure 129/59 L 134/64 Pulse Oximetry 94 94 Oxygen Delivery Room Air Room Air Fraction of Inspired Oxygen 09/11/24 12:15 09/11/24 12:30 09/11/24 12:30 Temperature Pulse Rate 50 L Pulse Rate [Right Radial] 57 L 50 L Respiratory Rate 15 Blood Pressure 131/62 Pulse Oximetry 95 Oxygen Delivery Room Air Fraction of Inspired Oxygen 09/11/24 12:45 09/11/24 12:45 09/11/24 13:00 Temperature Pulse Rate 48 L Pulse Rate [Right Radial] 48 L 54 L Respiratory Rate 14 Blood Pressure 142/70 H Pulse Oximetry 94 Oxygen Delivery Room Air Fraction of Inspired Oxygen 09/11/24 13:00 09/11/24 13:15 09/11/24 13:15 Temperature Pulse Rate 54 L 49 L Pulse Rate [Right Radial] 49 L Respiratory Rate 16 14 Blood Pressure 135/71 139/76 Pulse Oximetry 95 97 Oxygen Delivery Room Air Room Air Fraction of Inspired Oxygen 09/11/24 13:30 09/11/24 13:30 09/11/24 13:45 Temperature Pulse Rate 52 L Pulse Rate [Right Radial] 52 L 52 L Respiratory Rate 16 Blood Pressure 133/61 Pulse Oximetry 97 Oxygen Delivery Room Air Fraction of Inspired Oxygen 09/11/24 13:45 09/11/24 14:00 09/11/24 14:00 Temperature Pulse Rate 52 L 57 L Pulse Rate [Right Radial] 57 L Respiratory Rate 15 18 Blood Pressure 104/54 L 127/72 Pulse Oximetry 97 97 Oxygen Delivery Room Air Room Air Fraction of Inspired Oxygen 09/11/24 14:15 09/11/24 14:15 09/11/24 14:30 Temperature Pulse Rate 52 L Pulse Rate [Right Radial] 52 L 55 L Respiratory Rate 17 Blood Pressure 127/67 Pulse Oximetry 97 Oxygen Delivery Room Air Fraction of Inspired Oxygen 09/11/24 14:30 09/11/24 14:45 09/11/24 14:45 Temperature Pulse Rate 55 L 52 L Pulse Rate [Right Radial] 52 L Respiratory Rate 18 16 Blood Pressure 131/58 L 96/49 L Pulse Oximetry 97 97 Oxygen Delivery Room Air Room Air Fraction of Inspired Oxygen 09/11/24 15:00 09/11/24 15:00 09/11/24 15:15 Temperature Pulse Rate 60 Pulse Rate [Right Radial] 60 60 Respiratory Rate 17 Blood Pressure 128/68 Pulse Oximetry 96 Oxygen Delivery Room Air Fraction of Inspired Oxygen 09/11/24 15:15 09/11/24 16:00 09/11/24 16:00 Temperature Pulse Rate 60 65 Pulse Rate [Right Radial] Respiratory Rate 15 Blood Pressure 155/58 H Pulse Oximetry 96 Oxygen Delivery Room Air Room Air Fraction of Inspired Oxygen 09/11/24 16:08 09/11/24 17:15 09/11/24 17:58 Temperature 97.9 F 97.7 F Pulse Rate 63 75 58 L Pulse Rate [Right Radial] Respiratory Rate 18 20 Blood Pressure 113/61 134/60 Pulse Oximetry 94 95 Oxygen Delivery Fraction of Inspired Oxygen 09/11/24 20:00 09/11/24 20:00 09/11/24 20:00 Temperature 97.8 F Pulse Rate 68 58 L Pulse Rate [Right Radial] Respiratory Rate 20 Blood Pressure 131/52 L Pulse Oximetry 98 Oxygen Delivery Room Air Fraction of Inspired Oxygen 09/11/24 21:59 09/11/24 22:00 09/11/24 23:49 Temperature Pulse Rate 65 56 L Pulse Rate [Right Radial] Respiratory Rate 20 Blood Pressure Pulse Oximetry 94 Oxygen Delivery Room Air Room Air Fraction of Inspired Oxygen 21 09/12/24 00:00 09/12/24 00:00 09/12/24 02:00 Temperature 97.8 F Pulse Rate 66 62 56 L Pulse Rate [Right Radial] Respiratory Rate 20 Blood Pressure 140/59 L Pulse Oximetry 94 Oxygen Delivery Fraction of Inspired Oxygen 09/12/24 04:00 09/12/24 04:00 09/12/24 04:00 Temperature 98.3 F Pulse Rate 70 66 Pulse Rate [Right Radial] Respiratory Rate 20 Blood Pressure 143/65 H Pulse Oximetry 96 Oxygen Delivery Room Air Fraction of Inspired Oxygen 09/12/24 06:32 09/12/24 07:57 09/12/24 08:00 Temperature 98.2 F Pulse Rate 66 72 72 Pulse Rate [Right Radial] Respiratory Rate 20 20 Blood Pressure 153/67 H Pulse Oximetry 95 95 Oxygen Delivery Room Air Fraction of Inspired Oxygen 21 09/12/24 08:00 Temperature Pulse Rate 74 Pulse Rate [Right Radial] Respiratory Rate Blood Pressure Pulse Oximetry Oxygen Delivery Fraction of Inspired Oxygen Intake/Output Intake/Output: Intake & Output 09/09/24 09/10/24 09/11/24 09/12/24 23:59 23:59 23:59 23:59 Intake Total 1408.8 1592.8 725.6 481.8 Output Total 1150 2125 550 Balance 1408.8 442.8 -1399.4 -68.2 Meds/Results Medications: Active Medications Generic Name Dose Route Start Last Admin Trade Name Freq PRN Reason Stop Dose Admin Acetaminophen 650 mg 09/09/24 14:12 Acetaminophen 325 Mg Tablet PO Q4H PRN Fever Aspirin 81 mg 09/10/24 09:25 09/12/24 08:58 Aspirin 81 Mg Enteric Tablet PO 81 mg QAM [facility] Administration Atorvastatin Calcium 80 mg 09/12/24 09:00 09/12/24 08:58 Atorvastatin 40 Mg Tablet PO 80 mg DAILY [facility] Administration Clopidogrel Bisulfate 75 mg 09/12/24 22:00 Clopidogrel Bisulfate 75 Mg Tablet PO QAM [facility] Dextrose 12.5 gm 09/10/24 09:06 Dextrose 50% 25 Gm/50 Ml Syringe IV PUSH PRN PRN Hypoglycemia Protocol Glucagon 1 mg 09/10/24 09:06 Glucagon For Inj 1 Mg Vial IM PRN PRN Hypoglycemia Protocol Glucose 15 gm 09/10/24 09:06 Glucose Oral Gel 15 Gm Of Glucse In 37.5 Gm Tube PO PRN PRN Hypoglycemia Protocol Dextrose 1,000 mls @ 100 mls/hr 09/10/24 09:06 Dextrose 5% 1,000 Ml IVPB PRN PRN Hypoglycemia Protocol Insulin Aspart 3 - 6 units 09/10/24 12:00 09/12/24 08:54 Insulin Aspart (*Bkc) 100 Units/Ml SUB-Q Not Given TIDWM [facility] Protocol Insulin Aspart 1 - 3 units 09/10/24 21:00 09/11/24 21:13 Insulin Aspart (*Bkc) 100 Units/Ml SUB-Q Not Given HS [facility] Protocol Insulin Glargine 16 units 09/10/24 21:00 09/11/24 21:19 Insulin Glargine (*Bkc) 100 Units/Ml 0.15 units/kg (16 units) Not Given SUB-Q HS [facility] Isosorbide Mononitrate 30 mg 09/12/24 09:00 09/12/24 08:58 Isosorbide Mononitrate 30 Mg Tab.Er.24h [facility] Administration Nitroglycerin 0.4 mg 09/09/24 15:02 Nitroglycerin Sl 0.4 Mg Tablet SUBLINGUAL Q5MIN PRN Chest Pain Ondansetron HCl 4 mg 09/09/24 14:12 Ondansetron Inj 4 Mg/2 Ml Vial IV PUSH Q4H PRN Nausea Ondansetron HCl 4 mg 09/11/24 11:29 Ondansetron Hcl Odt 4 Mg Tablet PO 09/12/24 11:28 Q4-6H PRN Nausea Perflutren Lipid Microsphere 0 ml 09/11/24 18:33 Perflutren Lipid Microspheres 1.5 Ml Vial Diluted To 10 Ml Total Volume IV PUSH 09/14/24 18:34 ONCE PRN adequate visualization Protocol Tramadol HCl 50 mg 09/11/24 11:29 Tramadol Hcl (*Crx) 50 Mg Tablet PO Q4-6H PRN Pain Rated 1-3 Radiology Results: ITS Impressions Chest X-Ray 09/09/24 12:35 IMPRESSION: 1. Mild left basilar atelectasis/scarring. Chest CTA 09/09/24 12:38 IMPRESSION: 1. Mild atelectasis at the lingula and the dependent lower lobes. No pulmonary embolism or other acute cardiopulmonary disease. Labs Labs: Laboratory Results - last 24 hr 09/11/24 09/11/24 09/11/24 09:45 10:27 13:09 WBC 7.4 RBC 5.49 Hgb 16.9 Hct 52.1 H MCV 94.9 MCH 30.8 MCHC 32.4 RDW 13.2 Plt Count 237 MPV 8.9 Immature Gran % (Auto) 0.3 Neut % (Auto) 75.0 H Lymph % (Auto) 18.2 L [place] % (Auto) 5.3 Eos % (Auto) 0.4 Baso % (Auto) 0.8 Lymph # (Auto) 1.34 [place] # (Auto) 0.4 Eos # (Auto) 0.0 Baso # (Auto) 0.1 Abs Immat Gran (auto) 0.02 Absolute Neuts (auto) 5.5 Absolute Nucleated RBC 0.000 Nucleated RBC % 0.0 PT 14.5 INR 1.1 APTT 195.7 H* Activ Coag Time Kaolin 268 H 279 H POC Capillary Glucose 09/11/24 09/11/24 09/11/24 13:40 15:51 20:24 WBC RBC Hgb Hct MCV MCH MCHC RDW Plt Count MPV Immature Gran % (Auto) Neut % (Auto) Lymph % (Auto) [place] % (Auto) Eos % (Auto) Baso % (Auto) Lymph # (Auto) [place] # (Auto) Eos # (Auto) Baso # (Auto) Abs Immat Gran (auto) Absolute Neuts (auto) Absolute Nucleated RBC Nucleated RBC % PT INR APTT Activ Coag Time Kaolin POC Capillary Glucose 169 H 167 H 149 H 09/11/24 09/12/24 09/12/24 22:26 04:30 07:44 WBC 10.6 H RBC 5.15 Hgb 15.9 Hct 47.9 MCV 93.0 MCH 30.9 MCHC 33.2 RDW 13.2 Plt Count 229 MPV 8.8 Immature Gran % (Auto) 0.4 Neut % (Auto) 69.3 Lymph % (Auto) 20.1 [place] % (Auto) 9.3 H Eos % (Auto) 0.5 Baso % (Auto) 0.4 Lymph # (Auto) 2.13 [place] # (Auto) 1.0 H Eos # (Auto) 0.1 Baso # (Auto) 0.0 Abs Immat Gran (auto) 0.04 H Absolute Neuts (auto) 7.4 H Absolute Nucleated RBC 0.000 Nucleated RBC % 0.0 PT INR APTT 77.0 H 83.5 H Activ Coag Time Kaolin POC Capillary Glucose 150 H
[2024-09-12 11:55] LABS: Glucose Point of Care 156 mg/dl (65-105)
--- NOTE | 2024-09-12 12:37 | PC.NURSE ---
Patient spouse at bedside to pickler helper patient for discharge. The patient's spouse brought in the Plavix that was ordered and needed to be verified. This RN verify's that the patient does infact have the medication in hand at this time.
--- NOTE | 2024-09-12 13:24 | PC.NURSE ---
Reviewed discharge paperwork with patient and spouse, including discharge medication list. Reviewed when last dose of medications were given and wrote down and reviewed when the next dose of medication is due. Patient and patient's spouse verbalized understanding at this time. Denies any further questions. Patient does state that he will not take the prescribed insulin, however he is agreeable to start the oral diabetic medications. This RN called the physician and made him aware of this conversation. MD (Dr Manning) verbalized understanding and said that it was up to the patient to take or decline to have medications filled. IV access removed intact and motor inspection mechanic taken off patient.
--- NOTE | 2024-09-12 16:57 | P.DS_ITS ---
DS: Admitting Diagnosis Discharge Date 09/12/24 Admitting Diagnosis (1) Chest pain: Code(s): R07.9 - Chest pain, unspecified Status: Acute (2) Non-STEMI (non-ST elevated myocardial infarction): Code(s): I21.4 - Non-ST elevation (NSTEMI) myocardial infarction Status: Acute (3) Elevated glucose: Code(s): R73.09 - Other abnormal glucose Status: Acute DS: Discharge Diagnosis Discharge Diagnosis (1) Chest pain: Code(s): R07.9 - Chest pain, unspecified Status: Acute (2) Non-STEMI (non-ST elevated myocardial infarction): Code(s): I21.4 - Non-ST elevation (NSTEMI) myocardial infarction Status: Acute (3) Elevated glucose: Code(s): R73.09 - Other abnormal glucose Status: Acute DS: Summary Hospital Course Hospital Course: 84 y/o M with no known past medical history presents here with intermittent chest pain. The following med issues have been addressed during hospitalization Non-STEMI (non-ST elevated myocardial infarction): Code(s): I21.4 - Non-ST elevation (NSTEMI) myocardial infarction Status: Acute Assessment and Plan: EKG, initial: sinus rhythm, left axis deviation, RBBB, voltage criteria for LVH, minimal Q-waves high lateral leads. Repeat EKG showed new T-wave abnormality present, new lateral inversions, possible ischemia now present - CXR:Mild left basilar atelectasis/scarring. - Chest CTA: Mild atelectasis at the lingula and the dependent lower lobes. No pulmonary embolism or other acute cardiopulmonary disease. - Troponin: Positive - ASA 324 given - SL nitro PRN Patient is on heparin gtt Continue telemetry monitoring Appreciate cardiology consultation, patient underwent cardiac catheterization, stent was placed, without complication 09/11 Discontinue heparin drip. Continue aspirin 81 mg daily p.o., Plavix 75 mg daily p.o., Lipitor 80 mg daily p.o., Imdur 30 mg daily p.o. The new diagnosed diabetes Code(s): R73.09 - Other abnormal glucose Status: Acute Assessment and Plan: Initial glucose 183, no previous history of diabetes. Check A1c 6.8. Fasting glucose 131 Meeting criteria of diabetes Consult family educator Received insulin sliding scale a.c. q.h.s., Lantus 16 q.h.s. controlled in the target range Changed to Amaryl 2 mg daily p.o., metformin 500 mg b.i.d. p.o., continue insulin sliding scale a.c. q.h.s. on discharge Time Spent with Patient Time attestation: Total time spent providing and/or coordinating discharge services: Exam Narrative: GENERAL: Pleasant, in no acute distress. Well-nourished. - EYES: EOMI. Anicteric. - HENT: Moist mucous membranes. - LUNGS: Clear to auscultation bilateral ly, no wheezing, rhonchi, or rales. - CARDIOVASCULAR: Regular rate and rhyth m. No murmur. No JVD. - ABDOMEN: Soft, non-tender and non-dist ended. No palpable masses. - EXTREMITIES: No edema. Peripheral puls es 2+. Non-tender. - NEUROLOGIC: No focal neurological defi cits. CN II-XII grossly intact. - PSYCHIATRIC: Awake, Alert and oriented x 3. Appropriate mood and affect. - SKIN: No rashes or lesions. Warm. - LYMPH: No cervical lymphadenopathy. DS: Data Data Completed and Pending Labs on day of discharge: Labs from last 24 hours 09/12/24 09/12/24 09/12/24 11:16 07:44 04:30 WBC 10.6 H RBC 5.15 Hgb 15.9 Hct 47.9 MCV 93.0 MCH 30.9 MCHC 33.2 RDW 13.2 Plt Count 229 MPV 8.8 Immature Gran % (Auto) 0.4 Neut % (Auto) 69.3 Lymph % (Auto) 20.1 Cameron % (Auto) 9.3 H Eos % (Auto) 0.5 Baso % (Auto) 0.4 Lymph # (Auto) 2.13 Cameron # (Auto) 1.0 H Eos # (Auto) 0.1 Baso # (Auto) 0.0 Abs Immat Gran (auto) 0.04 H Absolute Neuts (auto) 7.4 H Absolute Nucleated RBC 0.000 Nucleated RBC % 0.0 APTT 83.5 H POC Capillary Glucose 156 H 150 H 09/11/24 09/11/24 22:26 20:24 WBC RBC Hgb Hct MCV MCH MCHC RDW Plt Count MPV Immature Gran % (Auto) Neut % (Auto) Lymph % (Auto) Cameron % (Auto) Eos % (Auto) Baso % (Auto) Lymph # (Auto) Cameron # (Auto) Eos # (Auto) Baso # (Auto) Abs Immat Gran (auto) Absolute Neuts (auto) Absolute Nucleated RBC Nucleated RBC % APTT 77.0 H POC Capillary Glucose 149 H Discharge Plan Discharge Attending physician on discharge: José Manning Consulting providers: Dakota Castillo; Loco Ramos Discharging Clinician: José Manning Anticipated Discharge Date/Time: 09/12/24 10:15 Patient Disposition: Home Activity: as tolerated Diet: as tolerated and heart healthy Discharge Instructions: [facility] [address] [place] [id number] DISCHARGE INSTRUCTIONS - POST PCI Activity 1. No driving until 09/12. 2. No lifting, pushing or pulling more than 10 pounds for 1 week. 3. No strenuous exercise or activity (including sexual activity) until you are released to do so. 4. May shower but no tub baths or swimming pool for 1 week. Avoid commercial hot tubs. They are too hot. Medications DO NOT STOP YOUR MEDICATIONS ONLY YOUR FIELD SUPPORT REP CAN STOP THE FOLLOWING MEDICATIONS - PLEASE CALL THE OF [facility] WITH QUESTIONS. *Aspirin *Ticagrelor (Brilinta) *Atorvastatin *Lisinopril or ARB *Metoprolol tartrate or succinate *Clopidogrel (Plavix) *Prasugrel (Effient) Important Reminders 1. Keep your stent card in your wallet at all times 2. Follow a heart healthy diet paying extra attention to cholesterol and fats. 3. Stay hydrated. 4. If you have chest pain unrelieved by rest or nitroglycerin (if prescribed) call 911 immediately. 5. If you miss one dose of Brilinta (if prescribed) take a tablet at the next time due. If you miss 2 doses take a tablet when you remember and resume at the next time due. *For any other questions please call the office at [phone]. Office hours are 8AM 4:30PM Tuesday through Tuesday. Patient Instructions: Antibiotic Form, Type 2 Diabetes in Adults: New Diagnosis (GEN), Type 2 Diabetes in Adults: New Diagnosis (IP), Meal Planning with Diabetes Exchanges (DC), After Radial Heart Catheterization (GEN), Type 2 Diabetes in the Older Adult (DC), Diabetes and Exercise (DC) Patient Language: Dominican Stand Alone Forms: General Discharge Information Follow-up/Referrals: Loco Ramos MD [Physician] - (See security chief museum at scheduled appointment in 2 weeks) PHYSICIAN,ART DEALER [Primary Care Provider] - (See PCP in 1 week) Discharge Medications: New clopidogrel 75 mg Tablet 75 mg PO QAM 90 Days Qty: 90 3RF atorvastatin 40 mg Tablet 80 mg PO DAILY Qty: 30 1RF isosorbide mononitrate 30 mg Tablet Extended Release 24 Hr 30 mg PO QAM Qty: 60 0RF aspirin 81 mg Tablet,Delayed Release (Dr/Ec) 81 mg PO QAM Qty: 60 2RF insulin aspart U-100 [Novolog U-100 Insulin aspart] 100 unit/mL Solution 3 - 6 unit subcut TIDWM Qty: 10 0RF Protocol: Insulin Corrective Moderate-Dose Condition: glucose < 70 mg/dl Dose/Route: Follow hypoglycemia orders Condition: glucose 70-200 mg/dl Dose/Route: No additional insulin Condition: glucose 201-250 mg/dl Dose/Route: 3 units sub-Q Condition: glucose 251-300 mg/dl Dose/Route: 4 units sub-Q Condition: glucose 301-350 mg/dl Dose/Route: 5 units sub-Q Condition: glucose 351-400 mg/dl Dose/Route: 6 units sub-Q Condition: glucose > 400 mg/dl Dose/Route: Call Protocol Text: *No Correction Dose at Bedtime* Rx Instructions: Instruction glucose < 70 mg/dl Follow hypoglycemia orders glucose 70-200 mg/dl No additional insulin glucose 201-250 mg/dl 3 units sub-Q glucose 251-300 mg/dl 4 units sub-Q glucose 301-350 mg/dl 5 units sub-Q glucose 351-400 mg/dl 6 units sub-Q glucose > 400 mg/dl Call insulin aspart U-100 [Novolog U-100 Insulin aspart] 100 unit/mL Solution 1 - 3 unit subcut HS Qty: 10 0RF Protocol: Insulin Corrective Moderate-Dose Condition: glucose < 70 mg/dl Dose/Route: Follow hypoglycemia orders Condition: glucose 70-200 mg/dl Dose/Route: No additional insulin Condition: glucose 201-250 mg/dl Dose/Route: 1 units sub-Q Condition: glucose 251-300 mg/dl Dose/Route: 2 units sub-Q Condition: glucose 301-350 mg/dl Dose/Route: 2 units sub-Q Condition: glucose 351-400 mg/dl Dose/Route: 3 units sub-Q Condition: glucose > 400 mg/dl Dose/Route: Call Rx Instructions: Instruction glucose < 70 mg/dl Follow hypoglycemia orders glucose 70-200 mg/dl No additional insulin glucose 201-250 mg/dl 1 units sub-Q glucose 251-300 mg/dl 2 units sub-Q glucose 301-350 mg/dl 2 units sub-Q glucose 351-400 mg/dl 3 units sub-Q glucose > 400 mg/dl Call nitroglycerin [Nitrostat] 0.4 mg Tablet, Sublingual 0.4 mg sublingual Q5MIN PRN (Reason: Chest Pain) Qty: 30 0RF glimepiride 2 mg tablet 2 mg PO QAM Qty: 30 1RF Rx Instructions: administer with breakfast metformin 500 mg tablet 500 mg PO BID Qty: 60 1RF (DME) blood-glucose meter [OneTouch Verio Flex meter] [facility] [place] Qty: 1 0RF Rx Instructions: May substitute to in-stock meter and/or covered by insurance. Use As Directed (DME) OneTouch Verio test strips Strip Qty: 1 0RF Rx Instructions: May substitute to in-stock and/or covered by insurance strips. Use As Directed (DME) pen needle, diabetic 32 gauge x 5/32 Needle Qty: 1 0RF Rx Instructions: As Directed (DME) lancets [OneTouch Delica Plus Lancet] 30 [place] [facility] [place]: 1 0RF Rx Instructions: May substitute to in-stock and/or covered by insurance lancets. Use As Directed (DME) insulin syringe,safety needle 0.5 mL 31 gauge x 5/16 Syringe Qty: 1 0RF Rx Instructions: As Directed Date of admission: 09/09/24 14:12 Primary Care Provider: PHYSICIAN,ART DEALER Admitting Provider: Wiliam Rodriguez Attending physician on admission: Wiliam Rodriguez Condition: Stable
--- NOTE | 2024-09-17 10:21 | PCCDE ---
09/17/24 Pt denies questions related to DM C/o Bad rash on his back, advising he was thinking about going to ER. Reports all his medications are new. Provided locations/phone number of 2 Urgent Care locations. New PCP appt 09/24. MINOR
== END 2024-09-12 13:37 | disposition home or self-care (01) | DRG 321 ==
LOC: ANHED 14:56 → ANHIMU 15:16
PROVIDERS: Emergency Medicine; Internal Medicine; Internal Medicine Interventional Cardiology; Student in an Organized Health Care Education/Training Program; Admitting Provider General Practice; Emergency Provider Student in an Organized Health Care Education/Training Program; Visit Provider Hospitalist
PROC: 4A023N7 Measurement of Cardiac Sampling and Pressure, Left Heart, Percutaneous Approach (ICD-10-PCS; CPT 93452; principal; 2024-09-11 09:00)
PROC: 0270366 Dilation of Coronary Artery, One Artery, Bifurcation, with Three Drug-eluting Intraluminal Devices, Percutaneous Approach (ICD-10-PCS; 2024-09-11 09:00)
PROC: 0270366 Dilation of Coronary Artery, One Artery, Bifurcation, with Three Drug-eluting Intraluminal Devices, Percutaneous Approach (ICD-10-PCS; 2024-09-11 09:00)
DX: T82.855A Stenosis of coronary artery stent, initial encounter (principal); I21.4 Non-ST elevation (NSTEMI) myocardial infarction; T82.897A Other specified complication of cardiac prosthetic devices, implants and grafts, initial encounter; I25.10 Atherosclerotic heart disease of native coronary artery without angina pectoris; R73.09 Other abnormal glucose; E66.01 Morbid (severe) obesity due to excess calories; I10 Essential (primary) hypertension; E78.5 Hyperlipidemia, unspecified; Z68.33 Body mass index [BMI] 33.0-33.9, adult
CPT/HCPCS: 36415; 71046; 71275; 80053; 80061; 82948; 83036; 83690; 84484; 85025; 85610; 85730; 92978; 93005; 93306; 93458; 96374; 96375; 99291; A9270; C1725; C1753; C1769; C1874; C1887; C1894; C9600; J0360; J1644; J2003; J2250; J2305; J3010; J7030; J7040; Q9967

== ENCOUNTER 2024-09-17 12:11 | Emergency (ER) | payer MEDICARE, SELFPAY ==
[2024-09-17 12:13] VITALS: BP 145/105; PULSE 88; RESP 16; TEMP 36.4; O2SAT 98
--- NOTE | 2024-09-17 13:52 | ED_ITS ---
HPI - Skin/Abscess/Foreign Bdy General Chief complaint: Skin/Abscess/Foreign Body <Katherine Olivera PA-C - Last Filed: 09/17/24 17:27> Stated complaint: rash on back, diarrhea <Katherine Olivera PA-C - Last Filed: 09/17/24 17:27> Time Seen by Provider: 09/17/24 13:52 <Katherine Olivera PA-C - Last Filed: 09/17/24 17:27> Focused HPI: This is a 84 year old male that presents to the ER for a rash on his back. He was recently discharged from the hospital for an NSTEMI. He has been having diarrhea since. Also reports he started to develop a rash yesterday which is itchy. He is on several new medications due to diagnosis of heart disease and diabetes while hospitalized. GENERAL: Elderly, well-nourished, and in no acute distress. HEAD: Normocephalic, atraumatic. CHEST: Clear to auscultation. ?No respiratory distress. HEART: Regular rate and rhythm.? NEURO: ?Alert and oriented x3. Patient screened in triage and initial orders placed.? ?Additional care and disposition to be based upon?diagnostic testing and treatment. <Katherine Olivera PA-C - Last Filed: 09/17/24 17:27> History of Present Illness HPI narrative: Agree with HPI. Started the statin later than other medication and then developed the rash. No pain but occasional pruritus. <Bill Triana MD - Last Filed: 09/17/24 16:30> Related Data Allergies/Adverse reactions: Allergies Allergy/AdvReac Type Severity Reaction Status Date / Time No Known Allergies Allergy Verified 09/17/24 12:12 <Katherine Olivera PA-C - Last Filed: 09/17/24 17:27> Review of Systems 2 Review of Systems: All systems reviewed & are unremarkable except as noted in HPI and below <Bill Triana MD - Last Filed: 09/17/24 16:30> Constitutional: Constitutional: Reports no additional constitutional complaints <Bill Triana MD - Last Filed: 09/17/24 16:30> ENT: Reports system reviewed and no additional complaints, except as documented <Bill Triana MD - Last Filed: 09/17/24 16:30> Respiratory: Respiratory: Reports no additional respiratory complaints < Bill Triana MD - Last Filed: 09/17/24 16:30> Gastrointestinal: Gastrointestinal: Reports no additional gastrointestinal complaints <Bill Triana MD - Last Filed: 09/17/24 16:30> Musculoskeletal: Musculoskeletal: Reports no additional musculoskeletal complaints <Bill Triana MD - Last Filed: 09/17/24 16:30> Integumentary/Breasts: Skin/Breast: Reports system reviewed and no additional complaints, except as docu <Bill Triana MD - Last Filed: 09/17/24 16:30> PMFSH Past Medical History Medical History: Medical History (Updated 09/17/24 @ 16:21 by Bill Triana MD) Coronary artery disease Hyperlipidemia Diabetes Non-STEMI (non-ST elevated myocardial infarction) <Katherine Olivera PA-C - Last Filed: 09/17/24 17:27> Surgical History Surgical History: Surgical History (Updated 09/17/24 @ 16:18 by Bill Triana MD) History of percutaneous coronary intervention <Katherine Olivera PA-C - Last Filed: 09/17/24 17:27> Social History Social History: Social History Smoking status: Never smoker Alcohol intake: never Do You Feel Safe in your Home?: Yes Lack of Transportation: No Lack of Food: Never True Current Housing: I Have Housing Concerned About Future Housing: No Difficulty Paying Gas/Electric Bills: No Difficulty Paying for Meds: No Currently Unemployed: No Education: Master's Degree or Higher Difficulty w/ Childcare or Family Care: No Spiritual care concerns: No <Katherine Olivera PA-C - Last Filed: 09/17/24 17:27> Exam 2 Narrative: GENERAL: Well-appearing, well-nourished, and in no acute distress. HEAD: Normocephalic, atraumatic. ENT: Mucous membranes moist. CHEST: Clear to auscultation. No respiratory distress. HEART: Regular rate and rhythm. Normal peripheral pulses. EXTREMITIES: Normal range of motion. No edema. SKIN: Warm, dry. Rash from the lower aspect of the hairline extending down the posterior neck into the low back. Blanching and erythematous however it is not particularly warm. No vesicles or pustules. NEURO: Alert and oriented x3. PSYCH: Normal mood and affect. <Bill Triana MD - Last Filed: 09/17/24 16:30> Course Course Emergency Course: Discussed with cardiology. Will hold statin and they will follow-up with patient to determine what sort of lipid-lowering medication they would like him on. <Bill Triana MD - Last Filed: 09/17/24 16:30> Vital Signs Vital signs: Vital Signs Temperature 97.5 F L 09/17/24 12:13 Pulse Rate 88 09/17/24 12:13 Respiratory Rate 16 09/17/24 12:13 Blood Pressure 145/105 H 09/17/24 12:13 Pulse Oximetry 98 09/17/24 12:13 Oxygen Delivery Room Air 09/17/24 12:13 Temperature 98.0 F 09/17/24 16:49 Pulse Rate 69 09/17/24 16:49 Respiratory Rate 16 09/17/24 16:49 Blood Pressure 143/72 H 09/17/24 16:49 Pulse Oximetry 97 09/17/24 16:49 Oxygen Delivery Room Air 09/17/24 12:13 <Katherine Olievra PA-C - Last Filed: 09/17/24 17:27> Vital Signs Temperature 97.5 F L 09/17/24 12:13 Pulse Rate 88 09/17/24 12:13 Respiratory Rate 16 09/17/24 12:13 Blood Pressure 145/105 H 09/17/24 12:13 Pulse Oximetry 98 09/17/24 12:13 Oxygen Delivery Room Air 09/17/24 12:13 Temperature 98.0 F 09/17/24 16:49 Pulse Rate 69 09/17/24 16:49 Respiratory Rate 16 09/17/24 16:49 Blood Pressure 143/72 H 09/17/24 16:49 Pulse Oximetry 97 09/17/24 16:49 Oxygen Delivery Room Air 09/17/24 12:13 <Bill Triana MD - Last Filed: 09/17/24 16:30> MDM - Skin/Abscess/Foreign Bdy Lab Data Result diagrams: 09/17/24 14:06 09/17/24 14:06 <Katherine Olivera PA-C - Last Filed: 09/17/24 17:27> Labs: Lab Results 09/17/24 Range/Units 14:06 WBC 7.0 (4.5-10.0) K/mm3 RBC 4.83 (4.6-6.20) M/mm3 Hgb 14.9 (14.0-18.0) g/dL Hct 45.9 (42.0-52.0) % MCV 95.0 (80-100) fl MCH 30.8 (26-34) pg MCHC 32.5 (32-36) g/dl RDW 12.9 (11.5-14.5) % Plt Count 244 (150-375) k/mm3 MPV 9.0 (7.4-10.4) fl Immature Gran % (Auto) 0.3 (0-0.5) % Neut % (Auto) 71.8 (45.5-73.1) % Lymph % (Auto) 17.9 L (18.3-44.2) % Upson % (Auto) 7.9 (2.6-8.5) % Eos % (Auto) 1.7 (0-4.4) % Baso % (Auto) 0.4 (0.2-1.2) % Lymph # (Auto) 1.25 (0.9-3.2) K/mm3 Upson # (Auto) 0.6 (0.1-0.6) K/mm3 Eos # (Auto) 0.1 (0-0.3) K/mm3 Baso # (Auto) 0.0 (0.0-0.1) K/mm3 Abs Immat Gran (auto) 0.02 (0.00-0.031) K/mm3 Absolute Neuts (auto) 5.0 (1.3-6.7) K/mm3 Absolute Nucleated RBC 0.000 (0.0-0.012) K/mm3 Nucleated RBC % 0.0 (0.0-0.2) % Sodium 137 (137-145) mmol/L Potassium 4.3 (3.4-5.0) mmol/L Chloride 104 (98-107) mmol/L Carbon Dioxide 27 (22-30) mmol/L Anion Gap 6 (4-12) mmol/L BUN 18 (9-20) mg/dL Creatinine 0.92 (0.7-1.3) mg/dL Estim Creat Clear Calc 68 ml/min Estimated GFR > 60 (59 - ) Glucose 86 (65-110) mg/dL Calcium 8.6 (8.4-10.2) mg/dL Total Bilirubin 0.6 (0.2-1.3) mg/dL AST 45 (17-59) U/L ALT 43 (6-50) U/L Alkaline Phosphatase 77 (38-126) U/L Total Protein 7.0 (6.3-8.2) g/dL Albumin 4.0 (3.5-5.1) g/dL Lipase 184 (23-300) U/L <Katherine Olivera PA-C - Last Filed: 09/17/24 17:27> Lab Results 09/17/24 Range/Units 14:06 WBC 7.0 (4.5-10.0) K/mm3 RBC 4.83 (4.6-6.20) M/mm3 Hgb 14.9 (14.0-18.0) g/dL Hct 45.9 (42.0-52.0) % MCV 95.0 (80-100) fl MCH 30.8 (26-34) pg MCHC 32.5 (32-36) g/dl RDW 12.9 (11.5-14.5) % Plt Count 244 (150-375) k/mm3 MPV 9.0 (7.4-10.4) fl Immature Gran % (Auto) 0.3 (0-0.5) % Neut % (Auto) 71.8 (45.5-73.1) % Lymph % (Auto) 17.9 L (18.3-44.2) % Upson % (Auto) 7.9 (2.6-8.5) % Eos % (Auto) 1.7 (0-4.4) % Baso % (Auto) 0.4 (0.2-1.2) % Lymph # (Auto) 1.25 (0.9-3.2) K/mm3 Upson # (Auto) 0.6 (0.1-0.6) K/mm3 Eos # (Auto) 0.1 (0-0.3) K/mm3 Baso # (Auto) 0.0 (0.0-0.1) K/mm3 Abs Immat Gran (auto) 0.02 (0.00-0.031) K/mm3 Absolute Neuts (auto) 5.0 (1.3-6.7) K/mm3 Absolute Nucleated RBC 0.000 (0.0-0.012) K/mm3 Nucleated RBC % 0.0 (0.0-0.2) % Sodium 137 (137-145) mmol/L Potassium 4.3 (3.4-5.0) mmol/L Chloride 104 (98-107) mmol/L Carbon Dioxide 27 (22-30) mmol/L Anion Gap 6 (4-12) mmol/L BUN 18 (9-20) mg/dL Creatinine 0.92 (0.7-1.3) mg/dL Estim Creat Clear Calc 68 ml/min Estimated GFR > 60 (59 - ) Glucose 86 (65-110) mg/dL Calcium 8.6 (8.4-10.2) mg/dL Total Bilirubin 0.6 (0.2-1.3) mg/dL AST 45 (17-59) U/L ALT 43 (6-50) U/L Alkaline Phosphatase 77 (38-126) U/L Total Protein 7.0 (6.3-8.2) g/dL Albumin 4.0 (3.5-5.1) g/dL Lipase 184 (23-300) U/L <Bill Triana MD - Last Filed: 09/17/24 16:30> Discharge Plan Discharge Clinical Impression: Allergic drug rash <Katherine Olivera PA-C - Last Filed: 09/17/24 17:27> Patient Disposition: Home <Katherine Olivera PA-C - Last Filed: 09/17/24 17:27> Condition: Stable <Katherine Olivera PA-C - Last Filed: 09/17/24 17:27> Instructions: Acute Rash (ED) <Katherine Olivera PA-C - Last Filed: 09/17/24 17:27> Additional Instructions: You should stop the atorvastatin that was prescribed. Take Benadryl for rash, and follow-up with cardiology for further planning of lipid management. Return the ER if he cannot breathe, he cannot swallow, your lip or tongue swelling, or you have additional concerns. <Katherine Olivera PA-C - Last Filed: 09/17/24 17:27> Patient Language: Guamanian <Katherine Olivera PA-C - Last Filed: 09/17/24 17:27> Prescriptions: Discontinued atorvastatin 40 mg Tablet 80 mg PO DAILY Qty: 30 1RF No Action clopidogrel 75 mg Tablet 75 mg PO QAM 90 Days Qty: 90 3RF isosorbide mononitrate 30 mg Tablet Extended Release 24 Hr 30 mg PO QAM Qty: 60 0RF aspirin 81 mg Tablet,Delayed Release (Dr/Ec) 81 mg PO QAM Qty: 60 2RF insulin aspart U-100 [Novolog U-100 Insulin aspart] 100 unit/mL Solution 3 - 6 unit subcut TIDWM Qty: 10 0RF Protocol: Insulin Corrective Moderate-Dose Condition: glucose < 70 mg/dl Dose/Route: Follow hypoglycemia orders Condition: glucose 70-200 mg/dl Dose/Route: No additional insulin Condition: glucose 201-250 mg/dl Dose/Route: 3 units sub-Q Condition: glucose 251-300 mg/dl Dose/Route: 4 units sub-Q Condition: glucose 301-350 mg/dl Dose/Route: 5 units sub-Q Condition: glucose 351-400 mg/dl Dose/Route: 6 units sub-Q Condition: glucose > 400 mg/dl Dose/Route: Call MD Protocol Text: *No Correction Dose at Bedtime* Rx Instructions: Instruction glucose < 70 mg/dl Follow hypoglycemia orders glucose 70-200 mg/dl No additional insulin glucose 201-250 mg/dl 3 units sub-Q glucose 251-300 mg/dl 4 units sub-Q glucose 301-350 mg/dl 5 units sub-Q glucose 351-400 mg/dl 6 units sub-Q glucose > 400 mg/dl Call insulin aspart U-100 [Novolog U-100 Insulin aspart] 100 unit/mL Solution 1 - 3 unit subcut HS Qty: 10 0RF Protocol: Insulin Corrective Moderate-Dose Condition: glucose < 70 mg/dl Dose/Route: Follow hypoglycemia orders Condition: glucose 70-200 mg/dl Dose/Route: No additional insulin Condition: glucose 201-250 mg/dl Dose/Route: 1 units sub-Q Condition: glucose 251-300 mg/dl Dose/Route: 2 units sub-Q Condition: glucose 301-350 mg/dl Dose/Route: 2 units sub-Q Condition: glucose 351-400 mg/dl Dose/Route: 3 units sub-Q Condition: glucose > 400 mg/dl Dose/Route: Call Rx Instructions: Instruction glucose < 70 mg/dl Follow hypoglycemia orders glucose 70-200 mg/dl No additional insulin glucose 201-250 mg/dl 1 units sub-Q glucose 251-300 mg/dl 2 units sub-Q glucose 301-350 mg/dl 2 units sub-Q glucose 351-400 mg/dl 3 units sub-Q glucose > 400 mg/dl Call nitroglycerin [Nitrostat] 0.4 mg Tablet, Sublingual 0.4 mg sublingual Q5MIN PRN (Reason: Chest Pain) Qty: 30 0RF glimepiride 2 mg tablet 2 mg PO QAM Qty: 30 1RF Rx Instructions: administer with breakfast metformin 500 mg tablet 500 mg PO BID Qty: 60 1RF (DME) blood-glucose meter [OneTouch Verio Flex meter] [facility] [place] Qty: 1 0RF Rx Instructions: May substitute to in-stock meter and/or covered by insurance. Use As Directed (DME) OneTouch Verio test strips Strip Qty: 1 0RF Rx Instructions: May substitute to in-stock and/or covered by insurance strips. Use As Directed (DME) pen needle, diabetic 32 gauge x 5/32 Needle Qty: 1 0RF Rx Instructions: As Directed (DME) lancets [OneTouch Delica Plus Lancet] 30 [place] [facility] [place] Qty: 1 0RF Rx Instructions: May substitute to in-stock and/or covered by insurance lancets. Use As Directed (DME) insulin syringe,safety needle 0.5 mL 31 gauge x 5/16 Syringe Qty: 1 0RF Rx Instructions: As Directed <Katherine Olivera PA-C - Last Filed: 09/17/24 17:27> Follow-up/Referrals: Quang Choi MD [Physician] - 3 Days PHYSICIAN,RHINESTONE SETTER [Primary Care Provider] - <Katherine Olivera PA-C - Last Filed: 09/17/24 17:27>
--- NOTE | 2024-09-17 14:19 | PC.NURSE ---
Pts entire back bright red, hot to touch, no open areas noted. Pt states recently started on six new meds. Recent med Atorvastatin on Tuesday with rash appearing on Tuesday
[2024-09-17 14:25] LABS: Basophils Percent Auto 0.4 % (0.2-1.2); Eosinophils Absolute Auto 0.1 K/mm3 (0-0.3); Eosinophils Percent Auto 1.7 % (0-4.4); Hematocrit 45.9 % (42.0-52.0); Hemoglobin 14.9 g/dL (14.0-18.0); Immature Granulocyte Absolute 0.02 K/mm3 (0.00-0.031); Immature Granulocyte Percent A 0.3 % (0-0.5); Lymphocytes Absolute Auto 1.25 K/mm3 (0.9-3.2); Lymphocytes Percent Auto 17.9 % (18.3-44.2); Mean Corpuscular HGB Conc 32.5 g/dl (32-36); Mean Corpuscular Hemoglobin 30.8 pg (26-34); Monocytes Absolute Auto 0.6 K/mm3 (0.1-0.6); Monocytes Percent Auto 7.9 % (2.6-8.5); Neutrophils Percent Auto 71.8 % (45.5-73.1); Platelet Count Result 244 k/mm3 (150-375); Red Blood Count 4.83 M/mm3 (4.6-6.20); Red Cell Distribution Width 12.9 % (11.5-14.5)
[2024-09-17 14:28] LABS: Alanine Aminotransferase 43 U/L (6-50); Alkaline Phosphatase 77 U/L (38-126); Anion Gap 6 mmol/L (4-12); Aspartate Amino Transferase 45 U/L (17-59); Bilirubin,Total 0.6 mg/dL (0.2-1.3); Blood Urea Nitrogen 18 mg/dL (9-20); Calcium 8.6 mg/dL (8.4-10.2); Carbon Dioxide 27 mmol/L (22-30); Chloride 104 mmol/L (98-107); Estimated CRCL calculation 68 ml/min; Estimated Glomerular Filt Rate > 60; Glucose 86 mg/dL (65-110); Lipase 184 U/L (23-300); Potassium 4.3 mmol/L (3.4-5.0); Sodium 137 mmol/L (137-145)
[2024-09-17 16:49] VITALS: BP 143/72; PULSE 69; RESP 16; TEMP 36.7; O2SAT 97
== END 2024-09-17 16:49 | disposition home or self-care (01) ==
PROVIDERS: Physician Assistant; Emergency Provider Emergency Medicine
DX: L27.1 Localized skin eruption due to drugs and medicaments taken internally (principal); R19.7 Diarrhea, unspecified; E78.5 Hyperlipidemia, unspecified; I25.10 Atherosclerotic heart disease of native coronary artery without angina pectoris; E11.9 Type 2 diabetes mellitus without complications; I25.2 Old myocardial infarction
CPT/HCPCS: 36415; 80053; 83690; 85025; 99283

== ENCOUNTER 2024-10-21 19:55 | Inpatient (IN) | payer MEDICARE, SELFPAY ==
[2024-10-21] VITALS (8 sets, daily range): BP systolic 99–136; BP diastolic 62–82; PULSE 105–125; RESP 15–24; TEMP 36.8; O2SAT 94–98
--- NOTE | ~2024-10-21 | CT_ITS ---
CT of the Abdomen and Pelvis: Indication: GI bleed Technique: 2.5 mm axial scans were obtained through the abdomen and pelvis following intravenous adm inistration of 100 cc of Omnipaque 350. Dose reduction technique was used on this scan by utilizing a utomated exposure control and iterative reconstruction technique. The dose-length product (DLP) was 1 196.98 mGy-cm. Findings: Scans through the lung bases are unremarkable. Small hepatic cysts are present. The spleen, pancreas, gallbladder, adrenals and right kidney are wit hin normal limits. 3 mm nonobstructing left renal stone present. There are atherosclerotic calcificat ions of the aorta. No lymphadenopathy. No bowel obstruction or bowel wall thickening. There is mild diverticulosis. There is minimal hyperde nsity associated with a diverticulum in the mid sigmoid colon (axial image 140).. Images through the pelvis were performed. Small stones are irregular in the urinary bladder. No pelvi c mass seen. No ascites. Moderate fat-containing umbilical hernia present. Impression: Minimal hyperdensity associated with a mid sigmoid colonic diverticulum, as detailed above. Small foc al diverticular bleed is a consideration. Moderate fat-containing umbilical hernia. 3 mm nonobstructing left renal stone. Tiny stones or debris layering in the urinary bladder. Reviewed, dictated and finalized at location . Impression: Minimal hyperdensity associated with a mid sigmoid colonic diverticulum, as det [place] above. Small focal diverticular bleed is a consideration. Moderate fat-containing umbilical hernia. 3 mm nonobstructing left renal stone. Tiny stones or debris layering in the uri nary bladder.
--- NOTE | ~2024-10-21 | XR_ITS ---
EXAMINATION: XR chest 1V portable Exam Date/Time: 10/21/2024 21:41 CDT HISTORY: infection Comparison: 09/09/2024. RESULT: Lines, tubes, and devices: Coronary stent. Lungs and pleura: No focal consolidation, pleural effusion, or pneumothorax. Chronic left hemidiaphr agm elevation and left basilar scarring/atelectasis. Cardiomediastinal silhouette: Stable. Other: No acute osseous or upper abdominal finding. IMPRESSION: No acute cardiopulmonary process. Reviewed, dictated and finalized at location K.
[2024-10-21 22:34] LABS: Basophils Absolute Auto 0.1 K/mm3 (0.0-0.1); Basophils Percent Auto 1.1 % (0.2-1.2); Eosinophils Absolute Auto 0.1 K/mm3 (0-0.3); Eosinophils Percent Auto 1.2 % (0-4.4); Hematocrit 43.7 % (42.0-52.0); Hemoglobin 14.5 g/dL (14.0-18.0); Immature Granulocyte Absolute 0.02 K/mm3 (0.00-0.031); Immature Granulocyte Percent A 0.3 % (0-0.5); Lymphocytes Absolute Auto 1.97 K/mm3 (0.9-3.2); Lymphocytes Percent Auto 26.2 % (18.3-44.2); Mean Corpuscular HGB Conc 33.2 g/dl (32-36); Mean Corpuscular Hemoglobin 30.9 pg (26-34); Mean Corpuscular Volume 93.2 fl (80-100); Mean Platelet Volume 8.8 fl (7.4-10.4); Monocytes Absolute Auto 0.7 K/mm3 (0.1-0.6); Monocytes Percent Auto 8.6 % (2.6-8.5); Neutrophils Absolute Auto 4.7 K/mm3 (1.3-6.7); Neutrophils Percent Auto 62.6 % (45.5-73.1); Platelet Count Result 226 k/mm3 (150-375); Red Blood Count 4.69 M/mm3 (4.6-6.20); Red Cell Distribution Width 12.4 % (11.5-14.5); White Blood Count 7.5 K/mm3 (4.5-10.0)
[2024-10-21 22:45] LABS: Alanine Aminotransferase 32 U/L (6-50); Albumin Level 3.7 g/dL (3.5-5.1); Alkaline Phosphatase 64 U/L (38-126); Anion Gap 7 mmol/L (4-12); Aspartate Amino Transferase 41 U/L (17-59); Bilirubin,Total 0.5 mg/dL (0.2-1.3); Blood Urea Nitrogen 21 mg/dL (9-20); Calcium 9.2 mg/dL (8.4-10.2); Carbon Dioxide 23 mmol/L (22-30); Chloride 107 mmol/L (98-107); Estimated CRCL calculation 55 ml/min; Estimated Glomerular Filt Rate > 60; Glucose 148 mg/dL (65-110); Magnesium 2.1 mg/dL (1.6-2.3); Potassium 4.5 mmol/L (3.4-5.0); Sodium 137 mmol/L (137-145); Total Protein 6.5 g/dL (6.3-8.2)
[2024-10-21 22:46] LABS: Lactic Acid Reflex 1.3 mmol/L (0.7-2.0)
[2024-10-21 23:01] LABS: IFOB Positive Control Positive; Immunochemical Fecal Occult Bl Positive (N)
[2024-10-21 23:20] LABS: Add Urine Microscopic? YES; Appearance Urine Clear (Clear); Bacteria Urine None Seen /hpf; Bilirubin Urine Negative (Negative); Blood Urine 1+ (Negative); Color Urine Yellow (Yellow); Glucose Urine UA Negative (Negative); Ketones Urine Trace mg/dL (Negative); Leukocyte Esterase Ur Negative LEU/UL (Negative); Need Manual Microscopic Reviewed; Nitrate Urine Negative (Negative); Protein Urine 1+ mg/dL (Negative); RBC Urine 0-2 /hpf (0-2); Specific Grav Ur 1.028 (1.001-1.035); Squamous Epithelial Cell Urine Few /hpf (Few); Urobilinogen Urine 0.2 mg/dL (<2.0); WBC Urine 0-5 /hpf (0-3)
--- NOTE | 2024-10-21 23:37 | ED_ITS ---
HPI - General Adult General Chief complaint: GI Bleed Stated complaint: RECTAL BLEEDING Time Seen by Provider: 10/21/24 21:27 History of Present Illness HPI narrative: Patient is an 84-year-old male who presents to the emergency department this evening complaining of bright red blood per rectum. Patient states that he was trying to pass gas and then went to the bathroom but then noticed that when he passed was blood. He states that it is bright red. Admits that he did have an episode of dark stools but thinks that that was due to something he ate and other than that 1 episode his stools have otherwise been normal brown color. Patient states that he has never had a colonoscopy. Denies any abdominal pain, nausea vomiting. No additional symptoms or concerns. Related Data Home Medications ?Medication ?Instructions ?Recorded ?Confirmed ?Last Taken ?Type latanoprost 0.005 % eye drops drp 10/21/24 Unknown History rosuvastatin 40 mg tablet mg 10/21/24 Unknown History Allergies Allergy/AdvReac Type Severity Reaction Status Date / Time atorvastatin Allergy Rash Verified 10/21/24 20:18 Review of Systems 2 Review of Systems: All systems are reviewed and are negative unless stated otherwise in the HPI. [facility] Past Medical History Medical History Coronary artery disease Hyperlipidemia Diabetes Non-STEMI (non-ST elevated myocardial infarction) Surgical History Surgical History History of percutaneous coronary intervention Social History Social History Smoking status: Never smoker Alcohol intake: never Do You Feel Safe in your Home?: Yes Lack of Transportation: No Lack of Food: Never True Current Housing: I Have Housing Concerned About Future Housing: No Difficulty Paying Gas/Electric Bills: No Difficulty Paying for Meds: No Currently Unemployed: No Education: Master's Degree or Higher Difficulty w/ Childcare or Family Care: No Spiritual care concerns: No Exam 2 Narrative: General: Alert, awake, afebrile, in no acute distress. HEENT: PERRL, no rhinorrhea, no post nasal drip, oropharynx clear. Neck: Trachea midline, no JVD, no lymphadenopathy. Cardiovascular: Regular rate and rhythm, no murmurs, rubs or gallops, no peripheral edema. Respiratory: Clear to auscultation bilaterally, no tachypnea, no wheezing, no rhonchi, no rubs, no respiratory distress. Abdomen: Soft, nontender, nondistended, no rebound, no guarding, no peritoneal signs. 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 Musculoskeletal: No joint swelling or deformity, normal muscle tone. Skin: No rashes or petechia, no signs of infection. Psychiatric: Alert and oriented, normal behavior and judgment for situation. Neurological: Alert and oriented to person, place, and time. Follows all commands. No focal deficits, speech is clear and fluent. Course Vital Signs Vital signs: Vital Signs Temperature 98.2 F 10/21/24 20:12 Pulse Rate 125 H 10/21/24 20:12 Respiratory Rate 18 10/21/24 20:12 Blood Pressure 136/62 10/21/24 20:12 Pulse Oximetry 98 10/21/24 20:12 Oxygen Delivery Room Air 10/21/24 20:12 Temperature 98.2 F 10/21/24 20:12 Pulse Rate 105 H 10/21/24 22:16 Respiratory Rate 23 H 10/21/24 22:16 Blood Pressure 105/67 10/21/24 22:16 Pulse Oximetry 95 10/21/24 22:16 Oxygen Delivery Room Air 10/21/24 20:12 Medical Decision Making MDM Narrative Medical decision making narrative: The patient was evaluated by myself in the emergency department. History is obtained from patient who is an independent historian and physical exam was performed. External medical records were reviewed at this time. IV was established and pertinent tests were ordered. Patient was administered 1 L IV fluid bolus with normal saline. Laboratory results obtained revealing no acute process. Imaging studies obtained included CXR which was independently interpreted by me revealing no acute cardiopulmonary process, which is pending final radiology interpretation. Differential diagnosis considerations include upper versus lower GI bleed, hemorrhagic shock, hemorrhoids. Comorbidities impacting this visit include none. I have evaluated and discussed social determinants of health with the patient that could potentially impact subsequent diagnosis and treatment plans. On repeat assessment of the patient, reevaluation revealed that the patient is doing well and is in no acute distress. Patient symptoms have improved since he arrived to our emergency department. Repeat vital signs were all reviewed and noted to be stable. Differential diagnosis and treatment plan were discussed with the patient at bedside. Patient agrees with discussion and after shared medical decision making agrees with admission. All questions were answered to the patient's satisfaction. Case discussed with the on-call GI physician Dr. Nair at 2332 and he recommended hospital admission under Medicine with GI as a consult with planned for a colonoscopy on Tuesday. Case was discussed with the on-call hospitalist Dr. Flores at 0040 she accepted admission. Vital Signs Vital Signs: Vital Signs Temperature 98.2 F 10/21/24 20:12 Pulse Rate 125 H 10/21/24 20:12 Respiratory Rate 18 10/21/24 20:12 Blood Pressure 136/62 10/21/24 20:12 Pulse Oximetry 98 10/21/24 20:12 Oxygen Delivery Room Air 10/21/24 20:12 Temperature 98.2 F 10/21/24 20:12 Pulse Rate 105 H 10/21/24 22:16 Respiratory Rate 23 H 10/21/24 22:16 Blood Pressure 105/67 10/21/24 22:16 Pulse Oximetry 95 10/21/24 22:16 Oxygen Delivery Room Air 10/21/24 20:12 Lab Data 10/21/24 22:28 10/21/24 22:28 Labs: Lab Results 10/21/24 10/21/24 Range/Units 22:28 22:41 WBC 7.5 (4.5-10.0) K/mm3 RBC 4.69 (4.6-6.20) M/mm3 Hgb 14.5 (14.0-18.0) g/dL Hct 43.7 (42.0-52.0) % MCV 93.2 (80-100) fl MCH 30.9 (26-34) pg MCHC 33.2 (32-36) g/dl RDW 12.4 (11.5-14.5) % Plt Count 226 (150-375) k/mm3 MPV 8.8 (7.4-10.4) fl Immature Gran % (Auto) 0.3 (0-0.5) % Neut % (Auto) 62.6 (45.5-73.1) % Lymph % (Auto) 26.2 (18.3-44.2) % [place] % (Auto) 8.6 H (2.6-8.5) % Eos % (Auto) 1.2 (0-4.4) % Baso % (Auto) 1.1 (0.2-1.2) % Lymph # (Auto) 1.97 (0.9-3.2) K/mm3 [place] # (Auto) 0.7 H (0.1-0.6) K/mm3 Eos # (Auto) 0.1 (0-0.3) K/mm3 Baso # (Auto) 0.1 (0.0-0.1) K/mm3 Abs Immat Gran (auto) 0.02 (0.00-0.031) K/mm3 Absolute Neuts (auto) 4.7 (1.3-6.7) K/mm3 Absolute Nucleated RBC 0.000 (0.0-0.012) K/mm3 Nucleated RBC % 0.0 (0.0-0.2) % Sodium 137 (137-145) mmol/L Potassium 4.5 (3.4-5.0) mmol/L Chloride 107 (98-107) mmol/L Carbon Dioxide 23 (22-30) mmol/L Anion Gap 7 (4-12) mmol/L BUN 21 H (9-20) mg/dL Creatinine 1.08 (0.7-1.3) mg/dL Estim Creat Clear Calc 55 ml/min Estimated GFR > 60 (59 - ) Glucose 148 H (65-110) mg/dL Lactic Acid 1.3 (0.7-2.0) mmol/L Calcium 9.2 (8.4-10.2) mg/dL Magnesium 2.1 (1.6-2.3) mg/dL Total Bilirubin 0.5 (0.2-1.3) mg/dL AST 41 (17-59) U/L ALT 32 (6-50) U/L Alkaline Phosphatase 64 (38-126) U/L Total Protein 6.5 (6.3-8.2) g/dL Albumin 3.7 (3.5-5.1) g/dL Urine Color Yellow (Yellow) Urine Appearance Clear (Clear) Urine pH 5.0 (5.0-9.0) Ur Specific [place] 1.028 (1.001-1.035) Urine Protein 1+ H (Negative) mg/dL Urine Glucose (UA) Negative (Negative) mg/dL Urine Ketones Trace H (Negative) mg/dL Ur Blood (Man) 1+ H (Negative) Urine Nitrate Negative (Negative) Urine Bilirubin Negative (Negative) Urine Urobilinogen 0.2 (<2.0) mg/dL Add Ur Microanalysis Reviewed Leukocyte Esterase Rfl Negative (Negative) DENITA/UL Urine RBC 0-2 (0-2) /hpf Urine WBC 0-5 (0-3) /hpf Ur Squamous Epith Cells Few (Few) /hpf Urine Bacteria None seen /hpf Urine Casts 3-5 Stl Occult Blood (IFOB) Positive H (N) Blood Type O Positive Antibody Screen Negative Discharge Plan Discharge Clinical Impression: GI (gastrointestinal bleed) Patient Disposition: Still a Patient Condition: Stable Patient Language: Polish Prescriptions: No Action clopidogrel 75 mg Tablet 75 mg PO QAM 90 Days Qty: 90 3RF isosorbide mononitrate 30 mg Tablet Extended Release 24 Hr 30 mg PO QAM Qty: 60 0RF aspirin 81 mg Tablet,Delayed Release (Dr/Ec) 81 mg PO QAM Qty: 60 2RF nitroglycerin [Nitrostat] 0.4 mg Tablet, Sublingual 0.4 mg sublingual Q5MIN PRN (Reason: Chest Pain) Qty: 30 0RF metformin 500 mg tablet 500 mg PO BID Qty: 60 1RF (DME) blood-glucose meter [OneTouch Verio Flex meter] Misc Qty: 1 0RF Rx Instructions: May substitute to in-stock meter and/or covered by insurance. Use As Directed (DME) OneTouch Verio test strips Strip Qty: 1 0RF Rx Instructions: May substitute to in-stock and/or covered by insurance strips. Use As Directed latanoprost 0.005 % drops rosuvastatin 40 mg tablet Follow-up/Referrals: Nadia Iverson DO [Primary Care Provider] - Time of Disposition: 00:19
[2024-10-22] VITALS (11 sets, daily range): BP systolic 90–126; BP diastolic 61–77; PULSE 69–102; RESP 14–20; TEMP 35.8–36.8; O2SAT 94–100; BMI 31.9
[2024-10-22 02:47] LABS: Glucose Point of Care 154 mg/dl (65-105)
--- NOTE | 2024-10-22 04:32 | PM.IMHP ---
H&P: HPI History of Present Illness Date/Time: 10/22/24 04:32 Chief Complaint: Bright red blood in his underwear after passing gas Narrative: Pleasant, loquacious 84-year-old female with a past medical history of recent cardiac catheterization she 09/11/2024 with placement of 3 cardiac stents, grade 1 diastolic dysfunction and glaucoma who presented to the ER via private vehicle after passing gas which resulted in passing bright red blood per rectum. The patient reports that he is feeling some rumbling in his stomach like when he needs to have a bowel movement but is not really having any abdominal pain. In just the usual cramping you would have before having a bowel movement. He thinks that there may be some stool mixed in with some of his bowel movements. He has had too many bowel movements to count since onset of symptoms at 18:30. Since he has arrived to the medical floor he has already had 2 moderate size bowel movements better bright red blood per nursing staff. He did notice some clots in his stool at home but has not noticed clots in his stool since he has arrived to the hospital. He denies any fevers or chills. He has never had a colonoscopy or EGD before. He did become lightheaded when he was being transported up from the ER in a wheelchair. He has not had any chest pain or shortness of breath since his cardiac catheterization. He reports that the lower extremity edema in that he was having prior to his heart catheterization has pretty much resolved. He has been compliant with his home medications. He denies any nausea or vomiting. He has not had any hematemesis. He reports that his appetite has been good. He has had an intentional weight loss of about 15 lb since his heart catheterization. Review of Systems Review of Systems: 12 systems were reviewed with pertinent positives and negatives per HPI. Except as documented in the HPI, all other systems were reviewed and are negative. He reports that he snores but feels well rested when he wakes up. [facility] Past Medical History Medical History Coronary artery disease Hyperlipidemia Diabetes (~08/2024) A1c of 6.8 % on 08/2024 Non-STEMI (non-ST elevated myocardial infarction) (09/09/24) Surgical History Surgical History History of tonsillectomy and adenoidectomy History of percutaneous coronary intervention (09/09/24) Successful PCI of prox-mid LAD with overlapping Orsiro 3.0/22, 2.5/22 and 2.25/22 mm ROBIN (provisional stenting of LAD/diag), postdilated distally to 2.5-2.55 and proximally to 3.55-3.60. No complications. JYOTSNA 3 flow. Jailed Diagonal with ostial 50% residual stenosis (JYOTSNA 2-3 Flow, no chest pain or EKG changes) Family History Family History (Updated 10/22/24 @ 05:41 by Karely Flores DO) Father , At age 70 Parkinsons disease Mother Over 80 years old Social History Social History (Updated 10/22/24 @ 05:42 by Karely Flores DO) Social History: Patient lives with his they have been since 1966. A did not have any children. He is a lifelong nonsmoker and does not drink alcohol or use illicit substances. 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 Code status: Full code Surrogate decision maker: Josefina () Smoking status: Never smoker Second hand tobacco smoke exposure: No Alcohol intake: never Substance use: never Substance use type: does not use Do You Feel Safe in your Home?: Yes Lack of Transportation: No Lack of Food: Never True Current Housing: I Have Housing Concerned About Future Housing: No Difficulty Paying Gas/Electric Bills: No Difficulty Paying for Meds: No Currently Unemployed: No Education: Master's Degree or Higher Difficulty w/ Childcare or Family Care: No Spiritual care concerns: No Meds Home Medications and Allergies Home Medications ?Medication ?Instructions ?Recorded ?Confirmed ?Type clopidogrel 75 mg tablet 75 mg PO QAM 90 days #90 tabs 09/11/24 10/22/24 Rx aspirin 81 mg tablet,delayed 81 mg PO QAM #60 tabs 09/12/24 10/22/24 Rx release blood sugar diagnostic (OneTouch #1 pkg 09/12/24 10/21/24 Rx Verio test strips) blood-glucose meter (OneTouch #1 pkg 09/12/24 10/21/24 Rx Verio Flex Meter) isosorbide mononitrate 30 mg 30 mg PO QAM #60 tabs 09/12/24 10/22/24 Rx tablet,extended release 24 hr metformin 500 mg tablet 500 mg PO BID #60 tabs 09/12/24 10/22/24 Rx nitroglycerin 0.4 mg sublingual 0.4 mg sublingual Q5MIN PRN Chest 09/12/24 10/22/24 Rx tablet (Nitrostat) Pain #30 tabs latanoprost 0.005 % eye drops 1 drp EACH EYE QPM 10/21/24 10/22/24 History rosuvastatin 40 mg tablet 40 mg PO DAILY 10/21/24 10/22/24 History Allergies Allergy/AdvReac Type Severity Reaction Status Date / Time atorvastatin Allergy Rash Verified 10/21/24 20:18 Vital Signs Vital Signs - 24 hr 10/21/24 20:12 10/21/24 21:00 10/21/24 21:02 Temperature 98.2 F Pulse Rate 125 H Respiratory Rate 18 Blood Pressure 136/62 135/82 Pulse Oximetry 98 96 95 Oxygen Delivery Room Air 10/21/24 21:16 10/21/24 21:31 10/21/24 21:46 Temperature Pulse Rate 109 H 110 H 108 H Respiratory Rate 20 24 H 21 H Blood Pressure 115/73 121/68 99/77 L Pulse Oximetry 94 94 94 Oxygen Delivery 10/21/24 22:01 10/21/24 22:16 10/22/24 01:29 Temperature Pulse Rate 107 H 105 H 88 Respiratory Rate 15 23 H 16 Blood Pressure 106/72 105/67 120/70 Pulse Oximetry 94 95 94 Oxygen Delivery 10/22/24 03:05 Temperature 96.5 F L Pulse Rate 102 H Respiratory Rate 16 Blood Pressure 90/77 L Pulse Oximetry 98 Oxygen Delivery Exam Narrative: Weight 90.2 kg BMI 32 Const: Other: No acute distress, obese, appears stated age HENMT: Other: Fair dentition, dry mucous membranes, no oral pharyngeal erythema, crowded posterior oropharynx Eyes: Other: No conjunctival pallor, no scleral icterus, pupils are equal and reactive Neck: Other: No JVD, large neck circumference Resp: Other: Clear to auscultation bilaterally, no increased work of breathing Cardio: Other: Sinus tachycardia, 2+ bilateral radial pedal pulses, no JVD GI: Other: Soft, hyperactive bowel sounds, nontender, obese Skin: Other: No jaundice, no pallor Neuro: Other: Alert oriented, speech is clear, no facial asymmetry, no localizing neurologic deficits noted during the course of conversation Extrem: Other: Trace edema bilateral lower extremities, no clubbing, cyanosis or edema socks not removed to visualize feet Psych: Other: Appropriate mood and affect, pleasant and cooperative, judgment and insight intact H&P: Results Labs Labs: Laboratory Tests 10/21/24 22:28 10/21/24 10/21/24 10/22/24 22:28 22:41 02:43 WBC 7.5 RBC 4.69 Hgb 14.5 Hct 43.7 MCV 93.2 MCH 30.9 MCHC 33.2 RDW 12.4 Plt Count 226 MPV 8.8 Immature Gran % (Auto) 0.3 Neut % (Auto) 62.6 Lymph % (Auto) 26.2 [place] % (Auto) 8.6 H Eos % (Auto) 1.2 Baso % (Auto) 1.1 Lymph # (Auto) 1.97 [place] # (Auto) 0.7 H Eos # (Auto) 0.1 Baso # (Auto) 0.1 Abs Immat Gran (auto) 0.02 Absolute Neuts (auto) 4.7 Absolute Nucleated RBC 0.000 Nucleated RBC % 0.0 Sodium 137 Potassium 4.5 Chloride 107 Carbon Dioxide 23 Anion Gap 7 BUN 21 H Creatinine 1.08 Estim Creat Clear Calc 55 Estimated GFR > 60 Glucose 148 H POC Capillary Glucose 154 H Lactic Acid 1.3 Calcium 9.2 Magnesium 2.1 Total Bilirubin 0.5 AST 41 ALT 32 Alkaline Phosphatase 64 Total Protein 6.5 Albumin 3.7 Urine Color Yellow Urine Appearance Clear Urine pH 5.0 Ur Specific [place] 1.028 Urine Protein 1+ H Urine Glucose (UA) Negative Urine Ketones Trace H Ur Blood (Man) 1+ H Urine Nitrate Negative Urine Bilirubin Negative Urine Urobilinogen 0.2 Add Ur Microanalysis Reviewed Leukocyte Esterase Rfl Negative Urine RBC 0-2 Urine WBC 0-5 Ur Squamous Epith Cells Few Urine Bacteria None seen Urine Casts 3-5 Stl Occult Blood (IFOB) Positive H Blood Type O Positive Antibody Screen Negative 10/22/24 05:09 WBC RBC Hgb Hct MCV MCH MCHC RDW Plt Count MPV Immature Gran % (Auto) Neut % (Auto) Lymph % (Auto) [place] % (Auto) Eos % (Auto) Baso % (Auto) Lymph # (Auto) [place] # (Auto) Eos # (Auto) Baso # (Auto) Abs Immat Gran (auto) Absolute Neuts (auto) Absolute Nucleated RBC Nucleated RBC % Sodium Pending Potassium Pending Chloride Pending Carbon Dioxide Pending Anion Gap Pending BUN Pending Creatinine Pending Estim Creat Clear Calc Pending Estimated GFR Pending Glucose Pending POC Capillary Glucose Lactic Acid Calcium Pending Magnesium Total Bilirubin AST ALT Alkaline Phosphatase Total Protein Albumin Urine Color Urine Appearance Urine pH Ur Specific [place] Urine Protein Urine Glucose (UA) Urine Ketones Ur Blood (Man) Urine Nitrate Urine Bilirubin Urine Urobilinogen Add Ur Microanalysis Leukocyte Esterase Rfl Urine RBC Urine WBC Ur Squamous Epith Cells Urine Bacteria Urine Casts Stl Occult Blood (IFOB) Blood Type Antibody Screen Impressions Chest X-Ray 10/21/24 21:53 IMPRESSION: No acute cardiopulmonary process. Assessment and Plan Assessment and plan (1) Lower GI bleed: Code(s): K92.2 - Gastrointestinal hemorrhage, unspecified Status: Acute (2) Non-STEMI (non-ST elevated myocardial infarction): Onset Date: 09/09/24 Code(s): I21.4 - Non-ST elevation (NSTEMI) myocardial infarction Status: Acute Plan Patient has a lower GI bleed with continue numerous episodes of passing blood per rectum. The patient has now developed hypotension and is become symptomatic. Will order CTA of the abdomen pelvis to see if there is area of active extravasation. Given the patient has had recent coronary artery stents I am reluctant to hold the patient's Plavix but given symptomatology his Plavix needs to be held. Will continue patient's 81 mg aspirin. Depending on the site of bleeding patient may benefit from transfer for evaluation by vascular for possible occlusive procedure patient has been typed and screened. Will check serial H&Hs. Will change diet to NPO until CT results are known. Gastroenterology has been consulted. Quality VTE Prophylaxis VTE prophylaxis: mechanical ordered (SCDs) Hospitalist MIPS Advance Care Plan I have confirmed that the patient's Advanced Care Plan is present, code status is documented, or surrogate decision maker is listed in patient medical record.: Yes Medication Reconciliation I have utilized all available resources to obtain, update and review the patients current medications (includes all prescriptions, OTC, herbals, cannabis, and nutritional supplements).: Yes
[2024-10-22] MEDS: SODIUM CHLORIDE 0.9% IV 1,000 ML 999 ML IV CONT ×2 (05:02)
[2024-10-22] MEDS: SODIUM CHLORIDE 0.9% IV 1,000 ML 100 ML IV CONT ×2 (05:03→16:05)
[2024-10-22 06:00] LABS: Anion Gap 7 mmol/L (4-12); Blood Urea Nitrogen 23 mg/dL (9-20); Calcium 8.5 mg/dL (8.4-10.2); Carbon Dioxide 23 mmol/L (22-30); Chloride 109 mmol/L (98-107); Estimated CRCL calculation 53 ml/min; Estimated Glomerular Filt Rate > 60; Glucose 149 mg/dL (65-110); Potassium 4.7 mmol/L (3.4-5.0); Sodium 139 mmol/L (137-145)
[2024-10-22 06:05] LABS: Basophils Absolute Auto 0.1 K/mm3 (0.0-0.1); Basophils Percent Auto 0.9 % (0.2-1.2); Eosinophils Percent Auto 0.4 % (0-4.4); Hematocrit 39.6 % (42.0-52.0); Hemoglobin 12.7 g/dL (14.0-18.0); Immature Granulocyte Absolute 0.02 K/mm3 (0.00-0.031); Immature Granulocyte Percent A 0.3 % (0-0.5); Lymphocytes Absolute Auto 1.45 K/mm3 (0.9-3.2); Lymphocytes Percent Auto 18.7 % (18.3-44.2); Mean Corpuscular HGB Conc 32.1 g/dl (32-36); Mean Corpuscular Hemoglobin 30.4 pg (26-34); Mean Corpuscular Volume 94.7 fl (80-100); Monocytes Absolute Auto 0.6 K/mm3 (0.1-0.6); Neutrophils Absolute Auto 5.6 K/mm3 (1.3-6.7); Neutrophils Percent Auto 71.7 % (45.5-73.1); Platelet Count Result 208 k/mm3 (150-375); Red Blood Count 4.18 M/mm3 (4.6-6.20); Red Cell Distribution Width 12.6 % (11.5-14.5); White Blood Count 7.7 K/mm3 (4.5-10.0)
[2024-10-22 08:20] LABS: Glucose Point of Care 128 mg/dl (65-105)
--- NOTE | 2024-10-22 09:29 | PM.IMPN ---
Progress Note: A&P Assessment and Plan (1) Lower GI bleed: Code(s): K92.2 - Gastrointestinal hemorrhage, unspecified Status: Acute Assessment and Plan: Possible colonoscopy tomorrow CT abdomen/pelvis No vascular surgeon intervention required at this time Monitor H&H No previous endoscopy or colonoscopy Following GI recommendation (2) Non-STEMI (non-ST elevated myocardial infarction): Onset Date: 09/09/24 Code(s): I21.4 - Non-ST elevation (NSTEMI) myocardial infarction Status: Acute Assessment and Plan: Recent cardiac catheterization with stent placement on 09/11/2024 Home med aspirin and Plavix Currently Plavix on hold Subjective Date/time seen: 10/22/24 09:29 Interval history: Evaluated at bedside and reports doing well. Patient had recent cardiac catheterization stent placed on 01/2025. Patient is on aspirin and clopidogrel. Currently clopidogrel on hold due to GI bleed. Discussed with GI and no current vascular surgeon intervention needed at this time. Patient will have possible colonoscopy tomorrow. Review of Systems Review of Systems: 12 systems were reviewed with pertinent positives and negatives per HPI. Except as documented in the HPI, all other systems were reviewed and are negative. He reports that he snores but feels well rested when he wakes up. Exam Narrative: Weight 90.2 kg BMI 32 Const: Other: No acute distress, obese, appears stated age HENMT: Other: Fair dentition, dry mucous membranes, no oral pharyngeal erythema, crowded posterior oropharynx Eyes: Other: No conjunctival pallor, no scleral icterus, pupils are equal and reactive Neck: Other: No JVD, large neck circumference Resp: Other: Clear to auscultation bilaterally, no increased work of breathing Cardio: Other: Sinus tachycardia, 2+ bilateral radial pedal pulses, no JVD GI: Other: Soft, hyperactive bowel sounds, nontender, obese Skin: Other: No jaundice, no pallor Neuro: Other: Alert oriented, speech is clear, no facial asymmetry, no localizing neurologic deficits noted during the course of conversation Extrem: Other: Trace edema bilateral lower extremities, no clubbing, cyanosis or edema socks not removed to visualize feet Psych: Other: Appropriate mood and affect, pleasant and cooperative, judgment and insight intact Objective Data Vital Signs Vital Signs: Vital Signs - 24 hr 10/21/24 20:12 10/21/24 21:00 10/21/24 21:02 Temperature 98.2 F Pulse Rate 125 H Respiratory Rate 18 Blood Pressure 136/62 135/82 Pulse Oximetry 98 96 95 Oxygen Delivery Room Air 10/21/24 21:16 10/21/24 21:31 10/21/24 21:46 Temperature Pulse Rate 109 H 110 H 108 H Respiratory Rate 20 24 H 21 H Blood Pressure 115/73 121/68 99/77 L Pulse Oximetry 94 94 94 Oxygen Delivery 10/21/24 22:01 10/21/24 22:16 10/22/24 01:29 Temperature Pulse Rate 107 H 105 H 88 Respiratory Rate 15 23 H 16 Blood Pressure 106/72 105/67 120/70 Pulse Oximetry 94 95 94 Oxygen Delivery 10/22/24 03:05 10/22/24 07:41 10/22/24 08:00 Temperature 96.5 F L 96.7 F L Pulse Rate 102 H 73 Respiratory Rate 16 14 Blood Pressure 90/77 L 115/61 Pulse Oximetry 98 96 Oxygen Delivery Room Air Intake/Output Intake/Output: Intake & Output 10/19/24 10/20/24 10/21/24 10/22/24 23:59 23:59 23:59 23:59 Intake Total 1000 Balance 1000 Meds/Results Medications: Active Medications Generic Name Dose Route Start Last Admin Trade Name Freq PRN Reason Stop Dose Admin Aspirin 81 mg 10/22/24 09:00 Aspirin 81 Mg Enteric Tablet PO QAM [facility] Sodium Chloride 1,000 mls @ 100 mls/hr 10/22/24 04:25 10/22/24 05:03 Normal Saline Iv IV CONT 100 mls/hr .Q10H [facility] Administration Latanoprost 1 drop 10/22/24 21:00 Latanoprost 0.005% Op Soln 2.5 Ml Btl EACH EYE QHS [facility] Polyethylene Glycol 119 gm 10/22/24 20:00 Polyethylene Glycol 3350 238 Gm Bottle PO 10/23/24 05:01 BID@0500,2000 [facility] Radiology Results: ITS Impressions Chest X-Ray 10/21/24 21:53 IMPRESSION: No acute cardiopulmonary process. Abdomen/Pelvis CTA 10/22/24 06:11 Impression: Minimal hyperdensity associated with a mid sigmoid colonic diverticulum, as detailed above. Small focal diverticular bleed is a consideration. Moderate fat-containing umbilical hernia. 3 mm nonobstructing left renal stone. Tiny stones or debris layering in the urinary bladder. Labs Labs: Laboratory Results - last 24 hr 10/21/24 10/21/24 10/22/24 22:28 22:41 02:43 WBC 7.5 RBC 4.69 Hgb 14.5 Hct 43.7 MCV 93.2 MCH 30.9 MCHC 33.2 RDW 12.4 Plt Count 226 MPV 8.8 Immature Gran % (Auto) 0.3 Neut % (Auto) 62.6 Lymph % (Auto) 26.2 Williams % (Auto) 8.6 H Eos % (Auto) 1.2 Baso % (Auto) 1.1 Lymph # (Auto) 1.97 Williams # (Auto) 0.7 H Eos # (Auto) 0.1 Baso # (Auto) 0.1 Abs Immat Gran (auto) 0.02 Absolute Neuts (auto) 4.7 Absolute Nucleated RBC 0.000 Nucleated RBC % 0.0 Sodium 137 Potassium 4.5 Chloride 107 Carbon Dioxide 23 Anion Gap 7 BUN 21 H Creatinine 1.08 Estim Creat Clear Calc 55 Estimated GFR > 60 Glucose 148 H POC Capillary Glucose 154 H Lactic Acid 1.3 Calcium 9.2 Magnesium 2.1 Total Bilirubin 0.5 AST 41 ALT 32 Alkaline Phosphatase 64 Total Protein 6.5 Albumin 3.7 Urine Color Yellow Urine Appearance Clear Urine pH 5.0 Ur Specific [place]acle 1.028 Urine Protein 1+ H Urine Glucose (UA) Negative Urine Ketones Trace H Ur Blood (Man) 1+ H Urine Nitrate Negative Urine Bilirubin Negative Urine Urobilinogen 0.2 Add Ur Microanalysis Reviewed Leukocyte Esterase Rfl Negative Urine RBC 0-2 Urine WBC 0-5 Ur Squamous Epith Cells Few Urine Bacteria None seen Urine Casts 3-5 Stl Occult Blood (IFOB) Positive H Blood Type O Positive Antibody Screen Negative 10/22/24 10/22/24 10/22/24 05:04 05:09 07:50 WBC 7.7 RBC 4.18 L Hgb 12.7 L Hct 39.6 L MCV 94.7 MCH 30.4 MCHC 32.1 RDW 12.6 Plt Count 208 MPV 9.0 Immature Gran % (Auto) 0.3 Neut % (Auto) 71.7 Lymph % (Auto) 18.7 Williams % (Auto) 8.0 Eos % (Auto) 0.4 Baso % (Auto) 0.9 Lymph # (Auto) 1.45 Williams # (Auto) 0.6 Eos # (Auto) 0.0 Baso # (Auto) 0.1 Abs Immat Gran (auto) 0.02 Absolute Neuts (auto) 5.6 Absolute Nucleated RBC 0.000 Nucleated RBC % 0.0 Sodium 139 Potassium 4.7 Chloride 109 H Carbon Dioxide 23 Anion Gap 7 BUN 23 H Creatinine 1.11 Estim Creat Clear Calc 53 Estimated GFR > 60 Glucose 149 H POC Capillary Glucose 128 H Lactic Acid Calcium 8.5 Magnesium Total Bilirubin AST ALT Alkaline Phosphatase Total Protein Albumin Urine Color Urine Appearance Urine pH Ur Specific Miracle Urine Protein Urine Glucose (UA) Urine Ketones Ur Blood (Man) Urine Nitrate Urine Bilirubin Urine Urobilinogen Add Ur Microanalysis Leukocyte Esterase Rfl Urine RBC Urine WBC Ur Squamous Epith Cells Urine Bacteria Urine Casts Stl Occult Blood (IFOB) Blood Type Antibody Screen Hospitalist MIPS Advance Care Plan I have confirmed that the patient's Advanced Care Plan is present, code status is documented, or surrogate decision maker is listed in patient medical record.: Yes Medication Reconciliation I have utilized all available resources to obtain, update and review the patients current medications (includes all prescriptions, OTC, herbals, cannabis, and nutritional supplements).: Yes
[2024-10-22] MEDS: ASPIRIN 81 MG ENTERIC TABLET PO (09:45)
[2024-10-22] MEDS: PANTOPRAZOLE SODIUM IV 40 MG VIAL IV PUSH ×2 (10:42→20:27)
[2024-10-22 11:54] LABS: Glucose Point of Care 166 mg/dl (65-105)
--- NOTE | 2024-10-22 13:49 | P.CONGI_ITS ---
Assessment and Plan Assessment and plan (1) Lower GI bleed: Code(s): K92.2 - Gastrointestinal hemorrhage, unspecified Status: Acute Assessment and Plan: The patient's presentation is consistent with lower GI bleeding, with diverticular disease being the most likely etiology. Although a CT angiogram indicated a possible bleed in the mid-sigmoid region (compatible with diverticulosis), the patient's hemodynamic stability dictates that angiographic intervention is not necessary at this point. Our plan is to continue careful observation and proceed with a colonoscopy tomorrow morning to further evaluate and manage the bleeding source. Clopidogrel is held for now, can resume if there are no signs of active bleeding on colonoscopy tomorrow. GI Consult Note Consult date/time: 10/22/24 13:49 HPI: Mr. Oscar Michele is an 84-year-old man with a significant cardiac history, including coronary artery disease and three stent placements in 2021. He is maintained on dual antiplatelet therapy (clopidogrel and aspirin). Approximately 24 hours ago, he developed multiple episodes of bright red blood per rectum mixed with stool. Importantly, these episodes have not been accompanied by abdominal pain, nausea, vomiting, hematemesis, syncope, loss of consciousness, or hypotension. Initial lab work on admission showed: WBC 7.5, hemoglobin 14.5, hematocrit 43.7, platelets 226, BUN 21, and creatinine 1.08. A CT angiogram performed this morning identified minimal hyperdensity in the mid-sigmoid region, consistent with diverticulosis. He has experienced two further bleeding episodes this morning. Review of Systems 2 Review of Systems: All systems reviewed & are unremarkable except as noted in HPI and below PMFSH Past Medical History Medical History Coronary artery disease Hyperlipidemia Diabetes (~08/2024) A1c of 6.8 % on 08/2024 Non-STEMI (non-ST elevated myocardial infarction) (09/09/24) Surgical History Surgical History History of tonsillectomy and adenoidectomy History of percutaneous coronary intervention (09/09/24) Successful PCI of prox-mid LAD with overlapping Orsiro 3.0/22, 2.5/22 and 2.25/22 mm ROBIN (provisional stenting of LAD/diag), postdilated distally to 2.5-2.55 and proximally to 3.55-3.60. No complications. JYOTSNA 3 flow. Jailed Diagonal with ostial 50% residual stenosis (JYOTSNA 2-3 Flow, no chest pain or EKG changes) Family History Family History (Updated 10/22/24 @ 05:41 by Karely Flores DO) Father , At age 70 Parkinsons disease Mother Over 80 years old Social History Social History (Updated 10/22/24 @ 05:42 by Karely Flores DO) Social History: Patient lives with his they have been since 1966. A did not have any children. He is a lifelong nonsmoker and does not drink alcohol or use illicit substances. 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 Code status: Full code Surrogate decision maker: Josefina () Smoking status: Never smoker Second hand tobacco smoke exposure: No Alcohol intake: never Substance use: never Substance use type: does not use Do You Feel Safe in your Home?: Yes Lack of Transportation: No Lack of Food: Never True Current Housing: I Have Housing Concerned About Future Housing: No Difficulty Paying Gas/Electric Bills: No Difficulty Paying for Meds: No Currently Unemployed: No Education: Master's Degree or Higher Difficulty w/ Childcare or Family Care: No Spiritual care concerns: No Meds Home Medications and Allergies Home Medications ?Medication ?Instructions ?Recorded ?Confirmed ?Type clopidogrel 75 mg tablet 75 mg PO QAM 90 days #90 tabs 09/11/24 10/22/24 Rx aspirin 81 mg tablet,delayed 81 mg PO QAM #60 tabs 09/12/24 10/22/24 Rx release blood sugar diagnostic (OneTouch #1 pkg 09/12/24 10/21/24 Rx Verio test strips) blood-glucose meter (OneTouch #1 pkg 09/12/24 10/21/24 Rx Verio Flex Meter) isosorbide mononitrate 30 mg 30 mg PO QAM #60 tabs 09/12/24 10/22/24 Rx tablet,extended release 24 hr metformin 500 mg tablet 500 mg PO BID #60 tabs 09/12/24 10/22/24 Rx nitroglycerin 0.4 mg sublingual 0.4 mg sublingual Q5MIN PRN Chest 09/12/24 10/22/24 Rx tablet (Nitrostat) Pain #30 tabs latanoprost 0.005 % eye drops 1 drp EACH EYE QPM 10/21/24 10/22/24 History rosuvastatin 40 mg tablet 40 mg PO DAILY 10/21/24 10/22/24 History Allergies Allergy/AdvReac Type Severity Reaction Status Date / Time atorvastatin Allergy Rash Verified 10/21/24 20:18 Vital Signs Vital Signs - 24 hr 10/21/24 20:12 10/21/24 21:00 10/21/24 21:02 Temperature 98.2 F Pulse Rate 125 H Respiratory Rate 18 Blood Pressure 136/62 135/82 Pulse Oximetry 98 96 95 Oxygen Delivery Room Air 10/21/24 21:16 10/21/24 21:31 10/21/24 21:46 Temperature Pulse Rate 109 H 110 H 108 H Respiratory Rate 20 24 H 21 H Blood Pressure 115/73 121/68 99/77 L Pulse Oximetry 94 94 94 Oxygen Delivery 10/21/24 22:01 10/21/24 22:16 10/22/24 01:29 Temperature Pulse Rate 107 H 105 H 88 Respiratory Rate 15 23 H 16 Blood Pressure 106/72 105/67 120/70 Pulse Oximetry 94 95 94 Oxygen Delivery 10/22/24 03:05 10/22/24 07:41 10/22/24 08:00 Temperature 96.5 F L 96.7 F L Pulse Rate 102 H 73 Respiratory Rate 16 14 Blood Pressure 90/77 L 115/61 Pulse Oximetry 98 96 Oxygen Delivery Room Air 10/22/24 08:00 10/22/24 12:00 Temperature Pulse Rate 78 69 Respiratory Rate Blood Pressure Pulse Oximetry Oxygen Delivery Exam 2 Narrative: Weight 90.2 kg BMI 32 Const: Other: No acute distress, obese, appears stated age HENMT: Other: Fair dentition, dry mucous membranes, no oral pharyngeal erythema, crowded posterior oropharynx Eyes: Other: No conjunctival pallor, no scleral icterus, pupils are equal and reactive Neck: Other: No JVD, large neck circumference Resp: Other: Clear to auscultation bilaterally, no increased work of breathing Cardio: Other: Sinus tachycardia, 2+ bilateral radial pedal pulses, no JVD GI: Other: Soft, hyperactive bowel sounds, nontender, obese Skin: Other: No jaundice, no pallor Neuro: Other: Alert oriented, speech is clear, no facial asymmetry, no localizing neurologic deficits noted during the course of conversation Extrem: Other: Trace edema bilateral lower extremities, no clubbing, cyanosis or edema socks not removed to visualize feet Psych: Other: Appropriate mood and affect, pleasant and cooperative, judgment and insight intact Results Labs 10/22/24 05:04 10/22/24 05:09 Labs: Short CBC 10/21/24 10/22/24 Range/Units 22:28 05:04 WBC 7.5 7.7 (4.5-10.0) K/mm3 Hgb 14.5 12.7 L (14.0-18.0) g/dL Hct 43.7 39.6 L (42.0-52.0) % Plt Count 226 208 (150-375) k/mm3 BMP 10/21/24 10/22/24 22:28 05:09 Sodium 137 139 Potassium 4.5 4.7 Chloride 107 109 H Carbon Dioxide 23 23 BUN 21 H 23 H Creatinine 1.08 1.11 Glucose 148 H 149 H Calcium 9.2 8.5 Liver Function 10/21/24 Range/Units 22:28 Total Bilirubin 0.5 (0.2-1.3) mg/dL AST 41 (17-59) U/L ALT 32 (6-50) U/L Alkaline Phosphatase 64 (38-126) U/L Albumin 3.7 (3.5-5.1) g/dL Urine 10/21/24 Range/Units 22:41 Urine Color Yellow (Yellow) Urine Appearance Clear (Clear) Urine pH 5.0 (5.0-9.0) Ur Specific [place] 1.028 (1.001-1.035) Urine Protein 1+ H (Negative) mg/dL Urine Glucose (UA) Negative (Negative) mg/dL
[2024-10-22 16:01] LABS: Hematocrit 34.5 % (42.0-52.0); Hemoglobin 11.2 g/dL (14.0-18.0)
[2024-10-22 16:17] LABS: Glucose Point of Care 101 mg/dl (65-105)
[2024-10-22] MEDS: polyethylene glycoL 3350 238 GM BOTTLE 119 GM PO (20:25)
[2024-10-22 21:11] LABS: Glucose Point of Care 176 mg/dl (65-105)
[2024-10-23] VITALS (13 sets, daily range): BP systolic 87–136; BP diastolic 48–76; PULSE 66–100; RESP 16–23; TEMP 35.6–36.9; O2SAT 99–100
[2024-10-23] MEDS: SODIUM CHLORIDE 0.9% IV 1,000 ML 100 ML IV CONT (01:02)
[2024-10-23] MEDS: polyethylene glycoL 3350 238 GM BOTTLE 119 GM PO (05:14)
[2024-10-23 05:57] LABS: Hematocrit 35.9 % (42.0-52.0); Hemoglobin 11.4 g/dL (14.0-18.0); Mean Corpuscular HGB Conc 31.8 g/dl (32-36); Mean Corpuscular Hemoglobin 30.9 pg (26-34); Mean Corpuscular Volume 97.3 fl (80-100); Mean Platelet Volume 9.2 fl (7.4-10.4); Platelet Count Result 180 k/mm3 (150-375); Red Blood Count 3.69 M/mm3 (4.6-6.20); White Blood Count 8.7 K/mm3 (4.5-10.0)
[2024-10-23 06:26] LABS: Alanine Aminotransferase 23 U/L (6-50); Albumin Level 3.1 g/dL (3.5-5.1); Alkaline Phosphatase 42 U/L (38-126); Anion Gap 6 mmol/L (4-12); Aspartate Amino Transferase 30 U/L (17-59); Bilirubin,Total 0.8 mg/dL (0.2-1.3); Blood Urea Nitrogen 14 mg/dL (9-20); Calcium 8.1 mg/dL (8.4-10.2); Carbon Dioxide 25 mmol/L (22-30); Chloride 110 mmol/L (98-107); Estimated CRCL calculation 64 ml/min; Estimated Glomerular Filt Rate > 60; Glucose 114 mg/dL (65-110); Potassium 3.9 mmol/L (3.4-5.0); Sodium 141 mmol/L (137-145); Total Protein 5.7 g/dL (6.3-8.2)
[2024-10-23] MEDS: PANTOPRAZOLE SODIUM IV 40 MG VIAL IV PUSH (07:34)
[2024-10-23] MEDS: MAGNESIUM CITRATE 300 ML BTL PO (07:57)
[2024-10-23 07:59] LABS: Glucose Point of Care 133 mg/dl (65-105)
--- NOTE | 2024-10-23 08:19 | WPDGIPROGNO ---
Progress Note: A&P Assessment and Plan (1) Lower GI bleed: Code(s): K92.2 - Gastrointestinal hemorrhage, unspecified Status: Acute Assessment and Plan: Patient currently stable from a hemodynamic standpoint, ready for colonoscopy today. If, as suspected, the source of bleeding is diverticulosis and there is no evidence of active bleeding, he might be discharged after the procedure. If there is no active bleeding, clopidogrel can be restarted. Subjective Date/time seen: 10/23/24 08:19 Interval history: Patient Did not have further bleeding overnight and tolerated prep well. colonoscopy planned for today. Exam Narrative: Unchanged from baseline. Objective Data Vital Signs Vital Signs: Vital Signs - 24 hr 10/22/24 12:00 10/22/24 13:58 10/22/24 16:00 Temperature 96.6 F L Pulse Rate 69 76 77 Respiratory Rate 16 Blood Pressure 120/62 Pulse Oximetry 100 Oxygen Delivery Fraction of Inspired Oxygen 10/22/24 19:30 10/22/24 20:00 10/22/24 20:06 Temperature 98.3 F Pulse Rate 81 77 82 Respiratory Rate 20 18 Blood Pressure 126/62 Pulse Oximetry 95 97 Oxygen Delivery Room Air Fraction of Inspired Oxygen 21 10/22/24 23:28 10/23/24 04:00 10/23/24 04:22 Temperature 98.4 F Pulse Rate 78 77 66 Respiratory Rate 16 Blood Pressure 110/60 Pulse Oximetry 100 Oxygen Delivery Fraction of Inspired Oxygen Intake/Output Intake/Output: Intake & Output 10/20/24 10/21/24 10/22/24 10/23/24 23:59 23:59 23:59 23:59 Intake Total 2720 895 Balance 2720 895 Meds/Results Medications: Active Medications Generic Name Dose Route Start Last Admin Trade Name Freq PRN Reason Stop Dose Admin Aspirin 81 mg 10/22/24 09:00 10/22/24 09:45 Aspirin 81 Mg Enteric Tablet PO 81 mg QAM [facility] Administration Sodium Chloride 1,000 mls @ 100 mls/hr 10/22/24 04:25 10/23/24 01:02 Normal Saline Iv IV CONT 100 mls/hr .Q10H [facility] Administration Latanoprost 1 drop 10/22/24 21:00 10/22/24 23:43 Latanoprost 0.005% Op Soln 2.5 Ml Btl EACH EYE Not Given QHS [facility] Pantoprazole Sodium 40 mg 10/22/24 10:00 10/23/24 07:34 Pantoprazole Sodium Iv 40 Mg Vial IV PUSH 40 mg Q12HR [facility] Administration Radiology Results: ITS Impressions Chest X-Ray 10/21/24 21:53 IMPRESSION: No acute cardiopulmonary process. Abdomen/Pelvis CTA 10/22/24 06:11 Impression: Minimal hyperdensity associated with a mid sigmoid colonic diverticulum, as detailed above. Small focal diverticular bleed is a consideration. Moderate fat-containing umbilical hernia. 3 mm nonobstructing left renal stone. Tiny stones or debris layering in the urinary bladder. Labs Labs: Laboratory Results - last 24 hr 10/22/24 10/22/24 10/22/24 07:50 11:48 15:22 WBC RBC Hgb 11.2 L Hct 34.5 L MCV MCH MCHC RDW Plt Count MPV Sodium Potassium Chloride Carbon Dioxide Anion Gap BUN Creatinine Estim Creat Clear Calc Estimated GFR Glucose POC Capillary Glucose 128 H 166 H Calcium Total Bilirubin AST ALT Alkaline Phosphatase Total Protein Albumin 10/22/24 10/22/24 10/23/24 16:10 20:27 05:30 WBC 8.7 RBC 3.69 L Hgb 11.4 L Hct 35.9 L MCV 97.3 MCH 30.9 MCHC 31.8 L RDW 13.0 Plt Count 180 MPV 9.2 Sodium 141 Potassium 3.9 Chloride 110 H Carbon Dioxide 25 Anion Gap 6 BUN 14 D Creatinine 0.90 Estim Creat Clear Calc 64 Estimated GFR > 60 Glucose 114 H POC Capillary Glucose 101 176 H Calcium 8.1 L Total Bilirubin 0.8 AST 30 ALT 23 Alkaline Phosphatase 42 Total Protein 5.7 L Albumin 3.1 L 10/23/24 07:56 WBC RBC Hgb Hct MCV MCH MCHC RDW Plt Count MPV Sodium Potassium Chloride Carbon Dioxide Anion Gap BUN Creatinine Estim Creat Clear Calc Estimated GFR Glucose POC Capillary Glucose 133 H Calcium Total Bilirubin AST ALT Alkaline Phosphatase Total Protein Albumin
[2024-10-23 11:49] LABS: Glucose Point of Care 126 mg/dl (65-105)
--- NOTE | 2024-10-23 12:29 | PM.IMPN ---
Progress Note: A&P Assessment and Plan (1) Lower GI bleed: Code(s): K92.2 - Gastrointestinal hemorrhage, unspecified Status: Acute Assessment and Plan: patien tnoted bloody stool has resolved CT abdomen/pelvis No vascular surgeon intervention required at this time Monitor H&H No previous endoscopy or colonoscopy For colonoscopy today (2) Non-STEMI (non-ST elevated myocardial infarction): Onset Date: 09/09/24 Code(s): I21.4 - Non-ST elevation (NSTEMI) myocardial infarction Status: Acute Assessment and Plan: Recent cardiac catheterization with stent placement on 0 09/11/2024 Home med aspirin and Plavix Currently Plavix on hold Plan DVT prophylaxis on SCD no AC due to GI bleed Subjective Date/time seen: 10/23/24 12:29 Interval history: Comfortable at bedside, for colonoscopy today Review of Systems Review of Systems: 12 systems were reviewed with pertinent positives and negatives per HPI. Except as documented in the HPI, all other systems were reviewed and are negative. He reports that he snores but feels well rested when he wakes up. Exam Narrative: Weight 90.2 kg BMI 32 Const: Other: No acute distress, obese, appears stated age HENMT: Other: Fair dentition, dry mucous membranes, no oral pharyngeal erythema, crowded posterior oropharynx Eyes: Other: No conjunctival pallor, no scleral icterus, pupils are equal and reactive Neck: Other: No JVD, large neck circumference Resp: Other: Clear to auscultation bilaterally, no increased work of breathing Cardio: Other: Sinus tachycardia, 2+ bilateral radial pedal pulses, no JVD GI: Other: Soft, hyperactive bowel sounds, nontender, obese Skin: Other: No jaundice, no pallor Neuro: Other: Alert oriented, speech is clear, no facial asymmetry, no localizing neurologic deficits noted during the course of conversation Extrem: Other: Trace edema bilateral lower extremities, no clubbing, cyanosis or edema socks not removed to visualize feet Psych: Other: Appropriate mood and affect, pleasant and cooperative, judgment and insight intact Objective Data Vital Signs Vital Signs: Vital Signs - 24 hr 10/22/24 13:58 10/22/24 16:00 10/22/24 19:30 Temperature 96.6 F L Pulse Rate 76 77 81 Respiratory Rate 16 20 Blood Pressure 120/62 Pulse Oximetry 100 95 Oxygen Delivery Room Air Fraction of Inspired Oxygen 21 06/09/25 20:00 10/22/24 20:06 10/22/24 23:28 Temperature 98.3 F Pulse Rate 77 82 78 Respiratory Rate 18 Blood Pressure 126/62 Pulse Oximetry 97 Oxygen Delivery Fraction of Inspired Oxygen 10/23/24 04:00 10/23/24 04:22 10/23/24 08:00 Temperature 98.4 F Pulse Rate 77 66 Respiratory Rate 16 Blood Pressure 110/60 Pulse Oximetry 100 100 Oxygen Delivery Room Air Fraction of Inspired Oxygen 10/23/24 09:00 10/23/24 12:00 Temperature Pulse Rate 100 76 Respiratory Rate Blood Pressure Pulse Oximetry Oxygen Delivery Fraction of Inspired Oxygen Intake/Output Intake/Output: Intake & Output 10/20/24 10/21/24 10/22/24 10/23/24 23:59 23:59 23:59 23:59 Intake Total 2720 895 Balance 2720 895 Meds/Results Medications: Active Medications Generic Name Dose Route Start Last Admin Trade Name Freq PRN Reason Stop Dose Admin Aspirin 81 mg 10/22/24 09:00 10/22/24 09:45 Aspirin 81 Mg Enteric Tablet PO 81 mg QAM [facility] Administration Sodium Chloride 1,000 mls @ 100 mls/hr 10/22/24 04:25 10/23/24 01:02 Normal Saline Iv IV CONT 100 mls/hr .Q10H [facility] Administration Latanoprost 1 drop 10/22/24 21:00 10/22/24 23:43 Latanoprost 0.005% Op Soln 2.5 Ml Btl EACH EYE Not Given QHS [facility] Pantoprazole Sodium 40 mg 10/22/24 10:00 10/23/24 07:34 Pantoprazole Sodium Iv 40 Mg Vial IV PUSH 40 mg Q12HR [facility] Administration Radiology Results: ITS Impressions Chest X-Ray 10/21/24 21:53 IMPRESSION: No acute cardiopulmonary process. Abdomen/Pelvis CTA 10/22/24 06:11 Impression: Minimal hyperdensity associated with a mid sigmoid colonic diverticulum, as detailed above. Small focal diverticular bleed is a consideration. Moderate fat-containing umbilical hernia. 3 mm nonobstructing left renal stone. Tiny stones or debris layering in the urinary bladder. Labs Labs: Laboratory Results - last 24 hr 10/22/24 10/22/24 10/22/24 15:22 16:10 20:27 WBC RBC Hgb 11.2 L Hct 34.5 L MCV MCH MCHC RDW Plt Count MPV Sodium Potassium Chloride Carbon Dioxide Anion Gap BUN Creatinine Estim Creat Clear Calc Estimated GFR Glucose POC Capillary Glucose 101 176 H Calcium Total Bilirubin AST ALT Alkaline Phosphatase Total Protein Albumin 10/23/24 10/23/24 10/23/24 05:30 07:56 11:00 WBC 8.7 RBC 3.69 L Hgb 11.4 L Hct 35.9 L MCV 97.3 MCH 30.9 MCHC 31.8 L RDW 13.0 Plt Count 180 MPV 9.2 Sodium 141 Potassium 3.9 Chloride 110 H Carbon Dioxide 25 Anion Gap 6 BUN 14 D Creatinine 0.90 Estim Creat Clear Calc 64 Estimated GFR > 60 Glucose 114 H POC Capillary Glucose 133 H 126 H Calcium 8.1 L Total Bilirubin 0.8 AST 30 ALT 23 Alkaline Phosphatase 42 Total Protein 5.7 L Albumin 3.1 L Quality VTE Prophylaxis VTE prophylaxis: mechanical ordered (SCDs)
--- NOTE | 2024-10-23 13:43 | P.PNAN_ITS ---
Anes - Initial Pre Proc Eval Procedure: Operation Date: 10/23/24 14:30 Proposed Procedures p Colonoscopy - Jamison Rojas MD Date/Time: 10/23/24 13:43 Surgeon: Karely Flores DO Pre Op Diagnosis: GI bleed Patient Data Age: 84 Gender: M Height: 1.75 m Weight: 98.2 kg Last Vital Signs Temp 36.9 C 10/23/24 04:22 Pulse 76 10/23/24 12:00 Resp 16 10/23/24 04:22 BP 110/60 10/23/24 04:22 Pulse Ox 100 10/23/24 08:00 O2 Del Method Room Air 10/23/24 08:00 FiO2 21 10/22/24 19:30 Allergies Allergy/AdvReac Type Severity Reaction Status Date / Time atorvastatin Allergy Rash Verified 10/21/24 20:18 Home Medications ?Medication ?Instructions ?Recorded ?Confirmed ?Type clopidogrel 75 mg tablet 75 mg PO QAM 90 days #90 tabs 09/11/24 10/22/24 Rx aspirin 81 mg tablet,delayed 81 mg PO QAM #60 tabs 09/12/24 10/22/24 Rx release blood sugar diagnostic (OneTouch #1 pkg 09/12/24 10/21/24 Rx Verio test strips) blood-glucose meter (OneTouch #1 pkg 09/12/24 10/21/24 Rx Verio Flex Meter) isosorbide mononitrate 30 mg 30 mg PO QAM #60 tabs 09/12/24 10/22/24 Rx tablet,extended release 24 hr metformin 500 mg tablet 500 mg PO BID #60 tabs 09/12/24 10/22/24 Rx nitroglycerin 0.4 mg sublingual 0.4 mg sublingual Q5MIN PRN Chest 09/12/24 10/22/24 Rx tablet (Nitrostat) Pain #30 tabs latanoprost 0.005 % eye drops 1 drp EACH EYE QPM 10/21/24 10/22/24 History rosuvastatin 40 mg tablet 40 mg PO DAILY 10/21/24 10/22/24 History Laboratory Tests 10/22/24 10/22/24 10/22/24 15:22 16:10 20:27 WBC RBC Hgb 11.2 L g/dL (14.0-18.0) Hct 34.5 L % (42.0-52.0) MCV MCH MCHC RDW Plt Count MPV Sodium Potassium Chloride Carbon Dioxide Anion Gap BUN Creatinine Estim Creat Clear Calc Estimated GFR Glucose POC Capillary Glucose 101 mg/dl 176 H mg/dl (65-105) (65-105) Calcium Total Bilirubin AST ALT Alkaline Phosphatase Total Protein Albumin 10/23/24 10/23/24 10/23/24 05:30 07:56 11:00 WBC 8.7 K/mm3 (4.5-10.0) RBC 3.69 L M/mm3 (4.6-6.20) Hgb 11.4 L g/dL (14.0-18.0) Hct 35.9 L % (42.0-52.0) MCV 97.3 fl (80-100) MCH 30.9 pg (26-34) MCHC 31.8 L g/dl (32-36) RDW 13.0 % (11.5-14.5) Plt Count 180 k/mm3 (150-375) MPV 9.2 fl (7.4-10.4) Sodium 141 mmol/L (137-145) Potassium 3.9 mmol/L (3.4-5.0) Chloride 110 H mmol/L (98-107) Carbon Dioxide 25 mmol/L (22-30) Anion Gap 6 mmol/L (4-12) BUN 14 D mg/dL (9-20) Creatinine 0.90 mg/dL (0.7-1.3) Estim Creat Clear Calc 64 ml/min Estimated GFR > 60 (59 - ) Glucose 114 H mg/dL (65-110) POC Capillary Glucose 133 H mg/dl 126 H mg/dl (65-105) (65-105) Calcium 8.1 L mg/dL (8.4-10.2) Total Bilirubin 0.8 mg/dL (0.2-1.3) AST 30 U/L (17-59) ALT 23 U/L (6-50) Alkaline Phosphatase 42 U/L (38-126) Total Protein 5.7 L g/dL (6.3-8.2) Albumin 3.1 L g/dL (3.5-5.1) Patient hx anesthesia problems: none Family hx anesthesia problems: none Results Review: All pre-operative results and documents have been reviewed as part of the pre- operative evaluation. [facility] Past Medical History Medical History Coronary artery disease Hyperlipidemia Diabetes (~08/2024) A1c of 6.8 % on 08/2024 Non-STEMI (non-ST elevated myocardial infarction) (09/09/24) Surgical History Surgical History History of tonsillectomy and adenoidectomy History of percutaneous coronary intervention (09/09/24) Successful PCI of prox-mid LAD with overlapping Orsiro 3.0/22, 2.5/22 and 2.25/22 mm ROBIN (provisional stenting of LAD/diag), postdilated distally to 2.5-2.55 and proximally to 3.55-3.60. No complications. JYOTSNA 3 flow. Jailed Diagonal with ostial 50% residual stenosis (JYOTSNA 2-3 Flow, no chest pain or EKG changes) Family History Family History Father , At age 70 Parkinsons disease Mother Over 80 years old Social History Social History Social History: Patient lives with his they have been since 1966. A did not have any children. He is a lifelong nonsmoker and does not drink alcohol or use illicit substances. 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 Code status: Full code Surrogate decision maker: Josefina () Smoking status: Never smoker Second hand tobacco smoke exposure: No Alcohol intake: never Substance use: never Substance use type: does not use Do You Feel Safe in your Home?: Yes Lack of Transportation: No Lack of Food: Never True Current Housing: I Have Housing Concerned About Future Housing: No Difficulty Paying Gas/Electric Bills: No Difficulty Paying for Meds: No Currently Unemployed: No Education: Master's Degree or Higher Difficulty w/ Childcare or Family Care: No Spiritual care concerns: No Anes - Eval Final PreProcedure Day of Procedure 10/23/24 13:43 Patient weight: obese Heart: regular rate and rhythm Lungs: clear to auscultation Airway: Mallampati scale class II Neurological: alert and oriented Last oral intake: >/= 8 hours ASA classification: III Emergent: no Anesthetic plan: proceed Anesthesia type and monitoring: general GIVS and standard monitoring Results Review: All pre-operative results and documents have been reviewed as part of the pre- operative evaluation. Informed Consent: The patient's anesthetic plan and its attendant risks and benefits were discussed with the patient/family/POA. Questions were solicited and answers provided to the satisfaction of the patient/family/POA.
[2024-10-23] MEDS: LACTATED RINGERS 1,000 ML 150 ML IV CONT (13:58)
--- NOTE | 2024-10-23 14:33 | S_PTH ---
PATIENT: Oscar Michele LOC: [id number] #:[id number] AGE/SX: 84/M ROOM: 302 RE10/22/[address]: Traci Knight MD : [id number] BED: 01 DIS: 10/23/2024 SPEC #: [id number] RECD: 10/24/24 10:20 STATUS: NINA RETuyet #: [id number] SHILPA: 10/23/24 14:[address]: Jamison Rojas DEPT: [facility] Surgical RECD BY: Marylu Mahaarj ENTERED: 10/24/24 10:21 SP TYPE: Surgical OTHR DR: DO Nadia Land DO Tissues: A - Colon Polypectomy Procedures: Hematoxylin and Eosin Stain Gross and Microscopic Level 4
--- NOTE | 2024-10-23 16:08 | WPDGIPROGNO ---
Progress Note: A&P Assessment and Plan (1) Diverticular hemorrhage: Code(s): K57.31 - Diverticulosis of large intestine without perforation or abscess with bleeding Status: Acute Assessment and Plan: See colonoscopy report. No neoplasm or actively bleeding lesions. Most likely source of bleeding : colon diverticulosis. Patient may be discharged and may resume his usual dose of Plavix. Subjective Date/time seen: 10/23/24 16:08 Objective Data Vital Signs Vital Signs: Vital Signs - 24 hr 10/22/24 19:30 10/22/24 20:00 10/22/24 20:06 Temperature 98.3 F Pulse Rate 81 77 82 Respiratory Rate 20 18 Blood Pressure 126/62 Pulse Oximetry 95 97 Oxygen Delivery Room Air Fraction of Inspired Oxygen 21 10/22/24 23:28 10/23/24 04:00 10/23/24 04:22 Temperature 98.4 F Pulse Rate 78 77 66 Respiratory Rate 16 Blood Pressure 110/60 Pulse Oximetry 100 Oxygen Delivery Fraction of Inspired Oxygen 10/23/24 08:00 10/23/24 09:00 10/23/24 12:00 Temperature Pulse Rate 100 76 Respiratory Rate Blood Pressure Pulse Oximetry 100 Oxygen Delivery Room Air Fraction of Inspired Oxygen 10/23/24 13:56 10/23/24 14:36 10/23/24 14:46 Temperature 97 F L Pulse Rate 69 74 75 Respiratory Rate 18 23 H 22 H Blood Pressure 135/67 87/48 L 107/56 L Pulse Oximetry 99 100 100 Oxygen Delivery Room Air Room Air Room Air Fraction of Inspired Oxygen 10/23/24 14:56 Temperature Pulse Rate 67 Respiratory Rate 17 Blood Pressure 109/53 L Pulse Oximetry 99 Oxygen Delivery Room Air Fraction of Inspired Oxygen Intake/Output Intake/Output: Intake & Output 10/20/24 10/21/24 10/22/24 10/23/24 23:59 23:59 23:59 23:59 Intake Total 2720 1195 Balance 2720 1195 Meds/Results Medications: Active Medications Generic Name Dose Route Start Last Admin Trade Name Freq PRN Reason Stop Dose Admin Aspirin 81 mg 10/22/24 09:00 10/22/24 09:45 Aspirin 81 Mg Enteric Tablet PO 81 mg QAM NACHO Administration Sodium Chloride 1,000 mls @ 100 mls/hr 10/22/24 04:25 10/23/24 01:02 Normal Saline Iv IV CONT 100 mls/hr .Q10H NACHO Administration Latanoprost 1 drop 10/22/24 21:00 10/22/24 23:43 Latanoprost 0.005% Op Soln 2.5 Ml Btl EACH EYE Not Given QHS [facility] Radiology Results: ITS Impressions Chest X-Ray 10/21/24 21:53 IMPRESSION: No acute cardiopulmonary process. Abdomen/Pelvis CTA 10/22/24 06:11 Impression: Minimal hyperdensity associated with a mid sigmoid colonic diverticulum, as detailed above. Small focal diverticular bleed is a consideration. Moderate fat-containing umbilical hernia. 3 mm nonobstructing left renal stone. Tiny stones or debris layering in the urinary bladder. Labs Labs: Laboratory Results - last 24 hr 10/22/24 10/22/24 10/23/24 16:10 20:27 05:30 WBC 8.7 RBC 3.69 L Hgb 11.4 L Hct 35.9 L MCV 97.3 MCH 30.9 MCHC 31.8 L RDW 13.0 Plt Count 180 MPV 9.2 Sodium 141 Potassium 3.9 Chloride 110 H Carbon Dioxide 25 Anion Gap 6 BUN 14 D Creatinine 0.90 Estim Creat Clear Calc 64 Estimated GFR > 60 Glucose 114 H POC Capillary Glucose 101 176 H Calcium 8.1 L Total Bilirubin 0.8 AST 30 ALT 23 Alkaline Phosphatase 42 Total Protein 5.7 L Albumin 3.1 L 10/23/24 10/23/24 07:56 11:00 WBC RBC Hgb Hct MCV MCH MCHC RDW Plt Count MPV Sodium Potassium Chloride Carbon Dioxide Anion Gap BUN Creatinine Estim Creat Clear Calc Estimated GFR Glucose POC Capillary Glucose 133 H 126 H Calcium Total Bilirubin AST ALT Alkaline Phosphatase Total Protein Albumin
[2024-10-23 16:33] LABS: Glucose Point of Care 108 mg/dl (65-105)
--- NOTE | 2024-10-23 17:54 | P.DS_ITS ---
DS: Admitting Diagnosis Discharge Date 10/23/24 Admitting Diagnosis Bright red blood in his underwear after passing gas DS: Discharge Diagnosis Discharge Diagnosis (1) Diverticular hemorrhage: Code(s): K57.31 - Diverticulosis of large intestine without perforation or abscess with bleeding Status: Acute DS: Summary Hospital Course Hospital Course: Pleasant, loquacious 84-year-old female with a past medical history of recent cardiac catheterization she 09/11/2024 with placement of 3 cardiac stents, grade 1 diastolic dysfunction and glaucoma who presented to the ER via private vehicle after passing gas which resulted in passing bright red blood per rectum. The patient reports that he is feeling some rumbling in his stomach like when he needs to have a bowel movement but is not really having any abdominal pain. In just the usual cramping you would have before having a bowel movement. He thinks that there may be some stool mixed in with some of his bowel movements. He has had too many bowel movements to count since onset of symptoms at 18:30. Since he has arrived to the medical floor he has already had 2 moderate size bowel movements better bright red blood per nursing staff. He did notice some clots in his stool at home but has not noticed clots in his stool since he has arrived to the hospital. He denies any fevers or chills. He has never had a colonoscopy or EGD before. He did become lightheaded when he was being transported up from the ER in a wheelchair. He has not had any chest pain or shortness of breath since his cardiac catheterization. He reports that the lower extremity edema in that he was having prior to his heart catheterization has pretty much resolved. He has been compliant with his home medications. He denies any nausea or vomiting. He has not had any hematemesis. He reports that his appetite has been good. He has had an intentional weight loss of about 15 lb since his heart catheterization. GI was consulted and patient underwent colonoscopy which showed highly likely diverticular bleed, no active bleed. GI recommended restarting Plavix tomorrow Hb and vital signs stable and within normal limits F/u with PCp in 3-5 days, f/u with GI as instructed Time Spent with Patient Time attestation: Total time spent providing and/or coordinating discharge services: DS: Data Data Completed and Pending Pending studies at discharge: Pending at discharge 10/23/24 14:33 Surgical [PTH] Routine Labs on day of discharge: Labs from last 24 hours 10/23/24 10/23/24 10/23/24 16:26 11:00 07:56 WBC RBC Hgb Hct MCV MCH MCHC RDW Plt Count MPV Sodium Potassium Chloride Carbon Dioxide Anion Gap BUN Creatinine Estim Creat Clear Calc Estimated GFR Glucose POC Capillary Glucose 108 H 126 H 133 H Calcium Total Bilirubin AST ALT Alkaline Phosphatase Total Protein Albumin 10/23/24 10/22/24 05:30 20:27 WBC 8.7 RBC 3.69 L Hgb 11.4 L Hct 35.9 L MCV 97.3 MCH 30.9 MCHC 31.8 L RDW 13.0 Plt Count 180 MPV 9.2 Sodium 141 Potassium 3.9 Chloride 110 H Carbon Dioxide 25 Anion Gap 6 BUN 14 D Creatinine 0.90 Estim Creat Clear Calc 64 Estimated GFR > 60 Glucose 114 H POC Capillary Glucose 176 H Calcium 8.1 L Total Bilirubin 0.8 AST 30 ALT 23 Alkaline Phosphatase 42 Total Protein 5.7 L Albumin 3.1 L Discharge Plan Discharge Attending physician on discharge: Traci Knight Discharging Clinician: Traci Knight Anticipated Discharge Date/Time: 10/23/24 17:53 Patient Disposition: Home Activity: as tolerated Diet: as tolerated and regular Patient Instructions: Antibiotic Form Patient Language: Cameroonian Stand Alone Forms: General Discharge Information Follow-up/Referrals: Nadia Iverson DO [Primary Care Provider] - (F/u with PCP in 3-5 days ) Inderjit Nair MD [Physician] - (F/u with GI as instructed ) Discharge Medications: Continued clopidogrel 75 mg Tablet 75 mg PO QAM 90 Days Qty: 90 3RF isosorbide mononitrate 30 mg Tablet Extended Release 24 Hr 30 mg PO QAM Qty: 60 0RF aspirin 81 mg Tablet,Delayed Release (Dr/Ec) 81 mg PO QAM Qty: 60 2RF nitroglycerin [Nitrostat] 0.4 mg Tablet, Sublingual 0.4 mg sublingual Q5MIN PRN (Reason: Chest Pain) Qty: 30 0RF metformin 500 mg tablet 500 mg PO BID Qty: 60 1RF (DME) blood-glucose meter [[employer] Verio Flex meter] Mis Qty: 1 0RF Rx Instructions: May substitute to in-stock meter and/or covered by insurance. Use As Directed (DME) [employer] Verio test strips Strip Qty: 1 0RF Rx Instructions: May substitute to in-stock and/or covered by insurance strips. Use As Directed latanoprost 0.005 % drops 1 drp EACH EYE QPM rosuvastatin 40 mg tablet 40 mg PO DAILY Date of admission: 10/22/24 10:10 Primary Care Provider: Nadia Iverson Admitting Provider: Karely Flores Attending physician on admission: Karely Flores Condition: Stable
== END 2024-10-23 18:15 | disposition home or self-care (01) | DRG 379 ==
LOC: ANHED 10-22 00:19 → ANH3MEDSUR 10-22 02:07
PROVIDERS: General Practice; Internal Medicine Gastroenterology; Admitting Provider Internal Medicine; Emergency Provider Emergency Medicine; PCP Family Medicine; Visit Provider Internal Medicine
PROC: 0DJD8ZZ Inspection of Lower Intestinal Tract, Via Natural or Artificial Opening Endoscopic (ICD-10-PCS; CPT 45378; principal; 2024-10-23 14:30)
DX: K57.31 Diverticulosis of large intestine without perforation or abscess with bleeding (principal); K64.8 Other hemorrhoids; D12.4 Benign neoplasm of descending colon; E78.5 Hyperlipidemia, unspecified; E11.9 Type 2 diabetes mellitus without complications; H40.9 Unspecified glaucoma; I25.2 Old myocardial infarction; I25.10 Atherosclerotic heart disease of native coronary artery without angina pectoris; Z79.02 Long term (current) use of antithrombotics/antiplatelets; Z79.82 Long term (current) use of aspirin; Z79.84 Long term (current) use of oral hypoglycemic drugs; Z95.5 Presence of coronary angioplasty implant and graft
CPT/HCPCS: 36415; 71045; 74174; 80048; 80053; 81001; 82274; 82948; 83605; 83735; 85014; 85018; 85025; 85027; 86850; 86900; 86901; 88305; 96360; 96361; 99285; A9270; G0378; J2003; J2470; J2704; J7030; J7120; Q9967

== ENCOUNTER 2025-01-02 09:03 | Outpatient (CLI) | payer MEDICARE, SELFPAY ==
[2025-01-02 10:04] LABS: Hematocrit 46.4 % (42.0-52.0); Hemoglobin 14.8 g/dL (14.0-18.0); Immature Granulocyte Percent A 0.3 % (0-0.5); Lymphocytes Absolute Auto 2.19 K/mm3 (0.9-3.2); Mean Corpuscular HGB Conc 31.9 g/dl (32-36); Mean Corpuscular Hemoglobin 30.0 pg (26-34); Mean Corpuscular Volume 93.9 fl (80-100); Nucleated Red Blood Cells Absolute Auto 0.000 K/mm3 (0.0-0.012); Nucleated Red Blood Cells Perc 0.0 % (0.0-0.2); Platelet Count Result 229 k/mm3 (150-375); Red Blood Count 4.94 M/mm3 (4.6-6.20); White Blood Count 6.9 K/mm3 (4.5-10.0)
[2025-01-02 10:25] LABS: MALB Creatinine Ratio 14.4 mg/g (0-30)
[2025-01-02 10:25] LABS: Alanine Aminotransferase 24 U/L (6-50); Albumin Level 4.4 g/dL (3.5-5.1); Alkaline Phosphatase 68 U/L (38-126); Anion Gap 9 mmol/L (4-12); Aspartate Amino Transferase 35 U/L (17-59); Bilirubin,Total 0.5 mg/dL (0.2-1.3); Blood Urea Nitrogen 20 mg/dL (9-20); Calcium 9.5 mg/dL (8.4-10.2); Carbon Dioxide 26 mmol/L (22-30); Chloride 104 mmol/L (98-107); Cholesterol 115 mg/dL (0-200); Estimated Glomerular Filt Rate > 60; Glucose 118 mg/dL (65-110); HDL Direct 55 mg/dL; Potassium 4.5 mmol/L (3.4-5.0); Sodium 139 mmol/L (137-145); Total Protein 7.5 g/dL (6.3-8.2); Triglycerides 65 mg/dL (<150)
== END 2025-01-02 09:04 | disposition home or self-care (01) ==
PROVIDERS: PCP Family Medicine; Visit Provider Family Medicine
DX: E11.9 Type 2 diabetes mellitus without complications (principal); I21.4 Non-ST elevation (NSTEMI) myocardial infarction
CPT/HCPCS: 36415; 80053; 80061; 82043; 85025